=== PATIENT | female | born 1960 | race Caucasian/White ===

== ENCOUNTER 2020-01-09 10:24 | Emergency (ER) | payer MEDICAID, SELFPAY ==
[2020-01-09 11:16] VITALS: BP 125/76; PULSE 81; RESP 20; TEMP 36.8; O2SAT 96
--- NOTE | 2020-01-09 14:21 | ED.EAR ---
HPI - Ear Problem General Chief complaint: Ear Stated complaint: r ear pain Time Seen by Provider: 01/09/20 13:40 Source: patient Mode of arrival: ambulatory Limitations: no limitations History of Present Illness HPI Narrative: Patient presents with chief complaint of pain, swelling and drainage to her right ear that has worsened over the past 2 days. Patient states that she was supposed to have surgery on her right ear due to persistent infections but she moved from [place] to our area to take care of her mother so she did not have the procedure performed. Patient states that she generally responds well to clindamycin but she also needs medication for pain. Patient is also requesting referral to general surgeon due to umbilical hernia which she has noticed more irritation since she has been having to be in the lifting care for her mother. Patient states that the hernia does reduce but she does note soreness to the area. Patient states that she also needs referral to a circulating process inspector. Patient denies fever, chills, diarrhea, vomiting, chest pain, shortness of breath or lethargy. Patient reports allergies to sulfa, penicillin any Toradol. Related Data Allergies Allergy/AdvReac Type Severity Reaction Status Date / Time ketorolac Allergy Unknown Rash Verified 01/09/20 14:12 meperidine Allergy Unknown Rash Verified 01/09/20 14:12 Penicillins Allergy Unknown welts, Unverified 01/09/20 11:23 closes throat Sulfa (Sulfonamide Allergy Unknown rash,swells Unverified 01/09/20 11:23 Antibiotics) throat Review of Systems Review of Systems: Narrative: CONSTITUTIONAL: Denies fever, chills, or sweats. EYES: Denies visual changes, redness, or discharge. ENT: Reports otalgia and ear drainage denies rhinorrhea, congestion, sore throat CARDIOVASCULAR: Denies chest pain, palpitations, or edema. RESPIRATORY: Denies cough or dyspnea. GASTROINTESTINAL: Reports umbilical hernia denies abdominal pain, nausea, vomiting, or diarrhea. GENITOURINARY: Denies dysuria or hematuria. SKIN: Denies rash or itching. MUSCULOSKELETAL: Denies back pain, joint pain, or myalgia. NEUROLOGIC: Denies headache, numbness, dizziness, or weakness. PSYCHIATRIC: Denies anxiety or depression. Exam Narrative: Exam Narrative: GENERAL: Well-appearing, well-nourished, and appears uncomfortable HEAD: Normocephalic, atraumatic. EYES: PERRLA and EOMI. ENT: Ear canal swollen on left side unable to see tm due to swelling and discharge. RT TM and ear canal clear. NECK: Supple. No adenopathy or masses. CHEST: Clear to auscultation. No respiratory distress. No tachypnea ABDOMEN: Soft, reducible umbilical hernia to right side. tender with deep manipulation. normal active bowel sounds. EXTREMITIES: Normal range of motion. No edema. SKIN: Warm, dry, no rash. NEURO: No focal deficits. Alert and oriented x3. PSYCH: Normal mood and affect. Course Vital Signs Vital signs: Vital Signs Temperature 98.3 F 01/09/20 11:16 Pulse Rate 81 01/09/20 11:16 Respiratory Rate 20 01/09/20 11:16 Blood Pressure 125/76 01/09/20 11:16 Pulse Oximetry 96 01/09/20 11:16 Temperature 98.3 F 01/09/20 11:16 Pulse Rate 81 01/09/20 11:16 Respiratory Rate 20 01/09/20 11:16 Blood Pressure 125/76 01/09/20 11:16 Pulse Oximetry 96 01/09/20 11:16 Medical Decision Making MDM Narrative Medical decision making narrative: Patient states that she was supposed to have surgery on is taking due to recurrent otitis externa and otitis media. Patient states that she responds well to clindamycin. Patient states that she does not tolerate eardrops will any only clindamycin by mouth. Patient has been instructed of the importance of following up with ear nose throat specialist for further investigation and management of her symptoms. Patient umbilical hernia is reducible also patient has been instructed to follow-up with general surgery for further investigation and recommendations. Alex
[2020-01-09] MEDS: HYDROcodone/acetaminophen (*CRX) 5-325 MG TABLET 1 TAB PO (14:22)
[2020-01-09 14:40] VITALS: BP 121/73; PULSE 79; RESP 20; O2SAT 97
== END 2020-01-09 14:41 | disposition home or self-care (01) ==
PROVIDERS: Emergency Provider Emergency Medicine; Referring Provider Internal Medicine
DX: H60.501 Unspecified acute noninfective otitis externa, right ear (principal); H66.91 Otitis media, unspecified, right ear
CPT/HCPCS: 99283; A9270

== ENCOUNTER 2022-11-26 19:05 | Emergency (ER) | payer OTHER, SELFPAY ==
--- NOTE | 2022-11-26 19:07 | ED.SOB ---
HPI - SOB/Dyspnea General Chief Complaint: Shortness of Breath/Dyspnea Stated Complaint: Shortness Of Breath/Swelling Hand/Feet Time Seen by Provider: 11/26/22 19:05 Source: patient Mode of arrival: ambulatory Limitations: no limitations History of Present Illness HPI Narrative: Jolanta is a 62-year-old female patient presenting to clinic today with complaints of shortness of breath that has gotten worse over the last day and swelling of her hands and feet that have occurred over the last 3 days. She has a history of hypercholesterolemia, hypertension, congestive heart failure, COPD, and heart attack. Related Data Home Medications Medication Instructions Recorded Confirmed atorvastatin 40 mg tablet 40 mg PO DAILY 09/24/22 cyclobenzaprine 10 mg tablet 10 mg PO TID 09/24/22 diltiazem HCl 120 mg 120 mg PO Q12H 09/24/22 capsule,extended release 12 hr furosemide 40 mg tablet (Lasix) 40 mg PO QAM 09/24/22 magnesium oxide 400 mg (241.3 mg 400 mg PO DAILY 09/24/22 magnesium) tablet pantoprazole 40 mg tablet,delayed 40 mg PO QHS 09/24/22 release (Protonix) paroxetine HCl 40 mg tablet 40 mg PO DAILY 09/24/22 clonazepam 0.5 mg tablet 0.5 mg PO DAILY 10/14/22 Allergies Allergy/AdvReac Type Severity Reaction Status Date / Time ketorolac Allergy Unknown Rash Verified 11/17/22 07:15 meperidine Allergy Unknown Rash Verified 11/17/22 07:15 Penicillins Allergy Unknown welts, Unverified 11/17/22 07:15 closes throat Sulfa (Sulfonamide Allergy Unknown rash,swells Unverified 11/17/22 07:15 Antibiotics) throat citalopram [From Celexa] Allergy Confusion Verified 11/17/22 07:15 erythromycin base Allergy Heartburn Verified 11/17/22 07:15 latex Allergy Rash Verified 11/17/22 07:15 morphine Allergy Nausea Verified 11/17/22 07:15 pregabalin [From Lyrica] Allergy Abdominal Verified 11/17/22 07:15 Pain gabapentin AdvReac Difficulty Verified 11/17/22 07:15 Swallowing Review of Systems Review of Systems: Pertinent positives per HPI. Patient denies any fever, chills, rash, headache, visual changes, dizziness, cough, runny nose, sore throat, chest pain, palpitations, nausea, vomiting, diarrhea, constipation, abdominal pain, or any urinary issues. [facility] Past Medical History Medical History Allergies Anxiety Arthritis Asthma CHF (congestive heart failure) COPD (chronic obstructive pulmonary disease) GERD (gastroesophageal reflux disease) Head ache Heart attack HTN (hypertension) IBS (irritable bowel syndrome) Migraine Osteoporosis Seizure Ulcer Family History Family History Father Alcohol abuse Cancer Mother Alcohol abuse Heart disease Sibling Alcohol abuse Hypertension Depression Anxiety Grandparent Alcohol abuse Cerebrovascular accident Social History Social History Smoking status: Current every day smoker Lack of Transportation: No Lack of Food: Sometimes True Current Housing: I Have Housing Concerned About Future Housing: No Difficulty Paying Gas/Electric Bills: No Difficulty Paying for Meds: No Currently Unemployed: YES Education: High School Diploma/GED Difficulty w/ Childcare or Family Care: YES Comments At the time of my signature, I reviewed and agree with the nursing past medical, surgical, social, and family history. There is no relevant family history pertinent to the patient complaint. Exam Narrative: General: Well-developed, obese, in no apparent distress Head: Normocephalic, atraumatic. Cardio: Regular rate and rhythm, s1 and s2 normal, no murmur appreciated. Resp: Lung sounds diminished, no rhonchi, rales, wheezing or rubs. Extremities: No deformity, 2+ pitting edema in the lower extremities and 1+ in the upper extremities, no cyanosis, capillary refil
[2022-11-26 19:11] VITALS: BP 142/88; PULSE 83; RESP 20; TEMP 36.2; O2SAT 97
--- NOTE | 2022-11-26 19:18 | ECG_ITS ---
Measurements Intervals [place] Rate: 86 P: 58 AR: 163 QRS: -43 QRSD: 83 T: 48 QT: 407 QTc: 487 Interpretive Statements SINUS RHYTHM LEFT AXIS DEVIATION [QRS AXIS < -30] INCOMPLETE RIGHT BUNDLE BRANCH BLOCK NO PREVIOUS ECG AVAILABLE FOR COMPARISON Electronically Signed On 11-27-2022 14:18:20 CDT by Kyaw Lewis M.D.
== END 2022-11-26 19:46 | disposition short-term general hospital (02) ==
PROVIDERS: Emergency Provider Nurse Practitioner Family; PCP Family Medicine
DX: R60.9 Edema, unspecified (principal); R06.02 Shortness of breath; I11.0 Hypertensive heart disease with heart failure; I50.9 Heart failure, unspecified; J44.9 Chronic obstructive pulmonary disease, unspecified; I25.2 Old myocardial infarction; F17.200 Nicotine dependence, unspecified, uncomplicated
CPT/HCPCS: 93005; 99213; G0463

== ENCOUNTER 2022-11-26 20:29 | Emergency (ER) | payer OTHER, SELFPAY ==
--- NOTE | ~2022-11-26 | XR_ITS ---
EXAMINATION: XR chest 2V DATE: 11/26/2022 21:04 INDICATION: Shortness of breath. TECHNIQUE: Frontal and lateral views of the chest were obtained. COMPARISON: CT abdomen and pelvis 08/09/2005 FINDINGS: There is mild atelectasis in the lower lung zones. No pleural effusion or pneumothorax. Car diomegaly is noted. IMPRESSION: 1. Mild atelectasis in the lower lung zones. 2. Cardiomegaly. Reviewed, dictated and finalized at location E.
[2022-11-26 20:32] VITALS: BP 158/96; PULSE 85; RESP 20; TEMP 36.7; O2SAT 97
--- NOTE | 2022-11-26 20:38 | ECG_ITS ---
Measurements Intervals [place] Rate: 71 P: [place]: 0 QRS: -48 QRSD: 104 T: 75 QT: 416 QTc: 453 Interpretive Statements SINUS RHYTHM WIHT PREMATURE ATRIAL COMPLEXES MARKED LEFT AXIS DEVIATION [QRS AXIS < -30] COMPARED TO ECG 11/26/2022 20:40:40 PACS NOW PRESENT Electronically Signed On 11-27-2022 14:22:43 CDT by Kyaw Lewis M.D.
[2022-11-26 21:55] LABS: Basophils Absolute Auto 0.1 K/mm3 (0.0-0.1); Basophils Percent Auto 0.4 % (0.2-1.2); Eosinophils Absolute Auto 0.3 K/mm3 (0-0.3); Eosinophils Percent Auto 2.3 % (0-4.4); Hematocrit 39.9 % (37.0-47.0); Immature Granulocyte Absolute 0.05 K/mm3 (0.00-0.031); Immature Granulocyte Percent A 0.4 % (0-0.5); Lymphocytes Absolute Auto 4.12 K/mm3 (0.9-3.2); Lymphocytes Percent Auto 35.4 % (18.3-44.2); Mean Corpuscular HGB Conc 32.6 g/dl (32-36); Mean Corpuscular Hemoglobin 31.1 pg (26-34); Mean Corpuscular Volume 95.5 fl (80-100); Mean Platelet Volume 9.5 fl (7.4-10.4); Monocytes Absolute Auto 0.6 K/mm3 (0.1-0.6); Monocytes Percent Auto 4.8 % (2.6-8.5); Neutrophils Absolute Auto 6.6 K/mm3 (1.3-6.7); Neutrophils Percent Auto 56.7 % (45.5-73.1); Platelet Count Result 328 k/mm3 (150-375); Red Blood Count 4.18 M/mm3 (4.2-5.4); Red Cell Distribution Width 13.9 % (11.5-14.5); White Blood Count 11.6 K/mm3 (4.5-10.0)
[2022-11-26 22:05] LABS: Partial Thromboplastin Time 23.8 SECONDS (22.3-36.8)
[2022-11-26 22:06] LABS: Alanine Aminotransferase 28 U/L (6-35); Albumin Level 4.1 g/dL (3.5-5.1); Alkaline Phosphatase 112 U/L (38-126); Anion Gap 7 mmol/L (8-16); Aspartate Amino Transferase 23 U/L (14-36); Bilirubin,Total 0.3 mg/dL (0.2-1.3); Blood Urea Nitrogen 19 mg/dL (7-17); Calcium 9.4 mg/dL (8.4-10.2); Carbon Dioxide 25 mmol/L (22-30); Chloride 107 mmol/L (98-107); Estimated CRCL calculation 100 ml/min; Estimated Glomerular Filt Rate > 60; Glucose 145 mg/dL (65-110); Potassium 3.8 mmol/L (3.4-5.0); Prothrombin Time 13.3 Seconds (11.1-14.7); Sodium 139 mmol/L (137-145)
[2022-11-26 22:17] LABS: NT Pro B Type Natriuretic Pept 183 pg/mL (19.9-100); Troponin I < 0.012 ng/mL (0.000-0.034)
[2022-11-26 22:42] VITALS: O2SAT 97
[2022-11-26 22:44] VITALS: PULSE 81; RESP 18; O2SAT 96
--- NOTE | 2022-11-26 23:20 | PC.NURSE ---
pt report and care to WENDY Taylor. all questions answered.
--- NOTE | 2022-11-26 23:39 | PC.NURSE ---
This RN took patient report from WENDY Gonzales. This Rn assumed care of patient.
== END 2022-11-27 00:17 | disposition left against medical advice (07) ==
PROVIDERS: Emergency Provider Emergency Medicine; PCP Family Medicine
DX: R06.02 Shortness of breath (principal)
CPT/HCPCS: 36415; 71046; 80053; 83880; 84484; 85025; 85610; 85730; 93005; 99199

== ENCOUNTER 2022-12-05 10:56 | Emergency (ER) | payer OTHER, SELFPAY ==
[2022-12-05 11:05] VITALS: BP 126/70; PULSE 78; RESP 20; TEMP 36.7; O2SAT 97
[2022-12-05 11:18] VITALS: BP 126/70; PULSE 78; RESP 20; TEMP 36.7; O2SAT 97
[2022-12-05 11:25] VITALS: PULSE 88; RESP 20; O2SAT 98
--- NOTE | 2022-12-05 11:33 | ED.URI ---
HPI - URI/Sore Throat General Chief Complaint: Upper Respiratory Infection Stated Complaint: Congestion/Cough Time Seen by Provider: 12/05/22 11:33 Source: patient Mode of arrival: ambulatory Limitations: no limitations History of Present Illness HPI Narrative: 62 yo F presents with c/o congestion, cough, fatigue for 6 days. States she was told earlier this week she just had a URI . her mother is in hospital with covid so she took home test yesterday and was positive. Pt would like prescription for paxlovid. has hx of COPD. Has been using inhalers as prescribed. Reports SOB with exertion. no resp distress noted. All systems reviewed and negative except as noted above. Related Data Home Medications Medication Instructions Recorded Confirmed atorvastatin 40 mg tablet 40 mg PO DAILY 09/24/22 12/05/22 cyclobenzaprine 10 mg tablet 10 mg PO TID 09/24/22 12/05/22 diltiazem HCl 120 mg 120 mg PO Q12H 09/24/22 12/05/22 capsule,extended release 12 hr furosemide 40 mg tablet (Lasix) 40 mg PO QAM 09/24/22 12/05/22 magnesium oxide 400 mg (241.3 mg 400 mg PO DAILY 09/24/22 12/05/22 magnesium) tablet pantoprazole 40 mg tablet,delayed 40 mg PO QHS 09/24/22 12/05/22 release (Protonix) paroxetine HCl 40 mg tablet 40 mg PO DAILY 09/24/22 12/05/22 clonazepam 0.5 mg tablet 0.5 mg PO DAILY 10/14/22 12/05/22 Allergies Allergy/AdvReac Type Severity Reaction Status Date / Time ketorolac Allergy Unknown Rash Verified 12/05/22 11:18 meperidine Allergy Unknown Rash Verified 12/05/22 11:18 Penicillins Allergy Unknown welts, Unverified 12/05/22 11:18 closes throat Sulfa (Sulfonamide Allergy Unknown rash,swells Unverified 12/05/22 11:18 Antibiotics) throat citalopram [From Celexa] Allergy Confusion Verified 12/05/22 11:18 erythromycin base Allergy Heartburn Verified 12/05/22 11:18 latex Allergy Rash Verified 12/05/22 11:18 morphine Allergy Nausea Verified 12/05/22 11:18 pregabalin [From Lyrica] Allergy Abdominal Verified 12/05/22 11:18 Pain gabapentin AdvReac Difficulty Verified 12/05/22 11:18 Swallowing Review of Systems Review of Systems: CONSTITUTIONAL: Denies fever, chills, or sweats. EYES: Denies visual changes, redness, or discharge. ENT: Denies rhinorrhea, congestion, sore throat, or otalgia. CARDIOVASCULAR: Denies chest pain, palpitations, or edema. RESPIRATORY: Reports cough and dyspnea with exertion. GASTROINTESTINAL: Denies abdominal pain, nausea, vomiting, or diarrhea. GENITOURINARY: Denies dysuria or hematuria. SKIN: Denies rash or itching. MUSCULOSKELETAL: Denies back pain, joint pain, or myalgia. NEUROLOGIC: Denies headache, numbness, or weakness. PSYCHIATRIC: Denies anxiety or depression. All other systems reviewed are negative, except as documented in HPI. [facility] Past Medical History Medical History Allergies Anxiety Arthritis Asthma CHF (congestive heart failure) COPD (chronic obstructive pulmonary disease) GERD (gastroesophageal reflux disease) Head ache Heart attack HTN (hypertension) IBS (irritable bowel syndrome) Migraine Osteoporosis Seizure Ulcer Family History Family History Father Alcohol abuse Cancer Mother Alcohol abuse Heart disease Sibling Alcohol abuse Hypertension Depression Anxiety Grandparent Alcohol abuse Cerebrovascular accident Social History Social History Smoking status: Current every day smoker Lack of Transportation: No Lack of Food: Sometimes True Current Housing: I Have Housing Concerned About Future Housing: No Difficulty Paying Gas/Electric Bills: No Difficulty Paying for Meds: No Currently Unemployed: YES Education: High School Diploma/GED Difficulty w/ Childcare or Family Care: YES Comments At time of signature, agree with joy
== END 2022-12-05 11:45 | disposition home or self-care (01) ==
PROVIDERS: Emergency Provider Nurse Practitioner Family; PCP Family Medicine
DX: U07.1 COVID-19 (principal); J44.9 Chronic obstructive pulmonary disease, unspecified; M19.90 Unspecified osteoarthritis, unspecified site; I11.0 Hypertensive heart disease with heart failure; I50.9 Heart failure, unspecified; M81.0 Age-related osteoporosis without current pathological fracture; I25.2 Old myocardial infarction; F41.9 Anxiety disorder, unspecified
CPT/HCPCS: 99213; G0463

== ENCOUNTER 2022-12-30 10:27 | Emergency (ER) | payer OTHER, SELFPAY ==
--- NOTE | ~2022-12-30 | XR_ITS ---
EXAMINATION: XR knee LT min 4V DATE: 12/30/2022 11:14 INDICATION: Left knee pain TECHNIQUE: Four views of the left knee were obtained. COMPARISON: None. FINDINGS: Alignment is normal. No fracture or osteochondral lesion. There is mild tricompartmental os teoarthritis characterized by tiny marginal osteophytes. No joint effusion/synovitis. Soft tissues a re unremarkable. IMPRESSION: 1. No acute osseous abnormality. Reviewed, dictated and finalized at location B. ING TECHNICIAN
--- NOTE | ~2022-12-30 | XR_ITS ---
EXAMINATION: XR knee RT min 4V DATE: 12/30/2022 11:14 INDICATION: Right knee pain TECHNIQUE: Five views of the right knee were obtained. COMPARISON: None. FINDINGS: Alignment is normal. No fracture or osteochondral lesion. There is mild tricompartmental os teoarthritis characterized by tiny marginal osteophytes. No joint effusion/synovitis. Soft tissues a re unremarkable. IMPRESSION: 1. No acute osseous abnormality. Reviewed, dictated and finalized at location B. RONMENTAL SERVICES ATTENDANT
[2022-12-30 10:34] VITALS: BP 135/89; PULSE 72; RESP 14; TEMP 36.4; O2SAT 96
--- NOTE | 2022-12-30 11:06 | ED.LOWEXIN ---
HPI - Extremity Injury (Lower) General Chief Complaint: Extremity Injury, Lower Stated Complaint: Left and Right Leg Pain Time Seen by Provider: 12/30/22 11:00 Source: patient, RN notes reviewed and old records reviewed Mode of arrival: ambulatory Limitations: no limitations History of Present Illness HPI Narrative: 62 year old female who presents to [facility] care with complaints of fall 2 weeks ago in the bathroom hitting her knees on metal shower bar and then she states she fell on her way back to bed on to her knees directly onto carpet floor. Patient reports pain to anterior left knee below knee cap and on the right anterior knee region across patella for the past 2 weeks. Patient reports that she has been taking Percocet for her pain which she has for chronic back pain. Patient reports that she has appointment with Dr Ortez on the of this month. complaint: knee injury and fall Onset (ago): week(s) (2) Type of Injury: blunt Place: home Severity scale (1-10): 10 Treatments prior to arrival: other (Percocet) Related Data Home Medications Medication Instructions Recorded Confirmed atorvastatin 40 mg tablet 40 mg PO DAILY 09/24/22 12/31/22 cyclobenzaprine 10 mg tablet 10 mg PO TID 09/24/22 12/31/22 diltiazem HCl 120 mg 120 mg PO Q12H 09/24/22 12/31/22 capsule,extended release 12 hr furosemide 40 mg tablet (Lasix) 40 mg PO QAM 09/24/22 12/31/22 magnesium oxide 400 mg (241.3 mg 400 mg PO DAILY 09/24/22 12/31/22 magnesium) tablet pantoprazole 40 mg tablet,delayed 40 mg PO QHS 09/24/22 12/31/22 release (Protonix) paroxetine HCl 40 mg tablet 40 mg PO DAILY 09/24/22 12/31/22 clonazepam 0.5 mg tablet 0.5 mg PO DAILY 10/14/22 12/31/22 propranolol 80 mg capsule,24 80 mg PO DAILY 12/30/22 12/31/22 hr,extended release ropinirole 1 mg tablet 1 mg PO DAILY 12/30/22 12/31/22 Allergies Allergy/AdvReac Type Severity Reaction Status Date / Time ketorolac Allergy Unknown Rash Verified 12/31/22 12:24 meperidine Allergy Unknown Rash Verified 12/31/22 12:24 Penicillins Allergy Unknown welts, Verified 12/31/22 12:24 closes throat Sulfa (Sulfonamide Allergy Unknown rash,swells Verified 12/31/22 12:24 Antibiotics) throat citalopram [From Celexa] Allergy Confusion Verified 12/31/22 12:24 erythromycin base Allergy Heartburn Verified 12/31/22 12:24 latex Allergy Rash Verified 12/31/22 12:24 morphine Allergy Nausea Verified 12/31/22 12:24 pregabalin [From Lyrica] Allergy Abdominal Verified 12/31/22 12:24 Pain gabapentin AdvReac Difficulty Verified 12/31/22 12:24 Swallowing Review of Systems Review of Systems: CONSTITUTIONAL: Denies fever, chills, or sweats. CARDIOVASCULAR: Denies chest pain, palpitations, or edema. RESPIRATORY: Denies cough or dyspnea. SKIN: Denies rash or itching. Denies laceration or abrasions MUSCULOSKELETAL: Reports pain to bilateral anterior knee areas from fall 2 weeks ago. NEUROLOGIC: Denies numbness, or weakness. All systems reviewed & are unremarkable except as noted in HPI and below PMFSH Past Medical History Medical History Allergies Anxiety Arthritis Asthma CHF (congestive heart failure) COPD (chronic obstructive pulmonary disease) GERD (gastroesophageal reflux disease) Head ache Heart attack HTN (hypertension) IBS (irritable bowel syndrome) Migraine Osteoporosis Seizure Ulcer Surgical History Surgical History H/O: hysterectomy Hx of appendectomy Hx of cholecystectomy Family History Family History Father Alcohol abuse Cancer Mother Alcohol abuse Heart disease Sibling Alcohol abuse Hypertension Depression Anxiety Grandparent Alcohol abuse Cerebrovascular accident Social History Social History Smoking status: Cur
== END 2022-12-30 11:42 | disposition home or self-care (01) ==
PROVIDERS: Emergency Provider Registered Nurse; PCP Family Medicine
DX: M17.0 Bilateral primary osteoarthritis of knee (principal); F17.200 Nicotine dependence, unspecified, uncomplicated; I11.0 Hypertensive heart disease with heart failure; I50.9 Heart failure, unspecified; J44.9 Chronic obstructive pulmonary disease, unspecified; K21.9 Gastro-esophageal reflux disease without esophagitis; M81.0 Age-related osteoporosis without current pathological fracture; F41.9 Anxiety disorder, unspecified
CPT/HCPCS: 73564; 99214; G0463

== ENCOUNTER 2022-12-31 12:10 | Emergency (ER) | payer OTHER, SELFPAY ==
[2022-12-31 12:16] VITALS: BP 117/71; PULSE 73; RESP 20; TEMP 36.4; O2SAT 96
--- NOTE | 2022-12-31 12:17 | ED.BACK ---
HPI - Back Pain/Injury General Chief Complaint: Back Pain/Injury Stated Complaint: back out Time Seen by Provider: 12/31/22 12:17 Source: patient Mode of arrival: ambulatory Limitations: no limitations History of Present Illness HPI Narrative: Jolanta is a 62-year-old female patient presenting to the clinic today with complaints of her back being out. 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 States the pain is sharp and is starting around the thoracic back down into the lumbar back with numbness and tingling into bilateral lower extremities. She reports that the pain was so bad that she felt as though she was going to pass out. Currently rates her pain 10/10. Denies any loss of bowel or bladder. Denies any saddle anesthesia. [facility] but needed assistance getting out of her vehicle. EMS was contacted initially to transfer patient to the ER but patient decided she wanted to be seen in the [facility] when she was assisted out of her vehicle into the wheelchair by EMS. Related Data Home Medications Medication Instructions Recorded Confirmed atorvastatin 40 mg tablet 40 mg PO DAILY 09/24/22 12/31/22 cyclobenzaprine 10 mg tablet 10 mg PO TID 09/24/22 12/31/22 diltiazem HCl 120 mg 120 mg PO Q12H 09/24/22 12/31/22 capsule,extended release 12 hr furosemide 40 mg tablet (Lasix) 40 mg PO QAM 09/24/22 12/31/22 magnesium oxide 400 mg (241.3 mg 400 mg PO DAILY 09/24/22 12/31/22 magnesium) tablet pantoprazole 40 mg tablet,delayed 40 mg PO QHS 09/24/22 12/31/22 release (Protonix) paroxetine HCl 40 mg tablet 40 mg PO DAILY 09/24/22 12/31/22 clonazepam 0.5 mg tablet 0.5 mg PO DAILY 10/14/22 12/31/22 propranolol 80 mg capsule,24 80 mg PO DAILY 12/30/22 12/31/22 hr,extended release ropinirole 1 mg tablet 1 mg PO DAILY 12/30/22 12/31/22 Allergies Allergy/AdvReac Type Severity Reaction Status Date / Time ketorolac Allergy Unknown Rash Verified 12/31/22 12:24 meperidine Allergy Unknown Rash Verified 12/31/22 12:24 Penicillins Allergy Unknown welts, Verified 12/31/22 12:24 closes throat Sulfa (Sulfonamide Allergy Unknown rash,swells Verified 12/31/22 12:24 Antibiotics) throat citalopram [From Celexa] Allergy Confusion Verified 12/31/22 12:24 erythromycin base Allergy Heartburn Verified 12/31/22 12:24 latex Allergy Rash Verified 12/31/22 12:24 morphine Allergy Nausea Verified 12/31/22 12:24 pregabalin [From Lyrica] Allergy Abdominal Verified 12/31/22 12:24 Pain gabapentin AdvReac Difficulty Verified 12/31/22 12:24 Swallowing Review of Systems Review of Systems: Pertinent positives per HPI. Patient denies any fever, chills, rash, headache, visual changes, dizziness, cough, runny nose, sore throat, shortness of breath, chest pain, palpitations, nausea, vomiting, diarrhea, constipation, abdominal pain, or any urinary issues. PMFSH Past Medical History Medical History Allergies Anxiety Arthritis Asthma CHF (congestive heart failure) COPD (chronic obstructive pulmonary disease) GERD (gastroesophageal reflux disease) Head ache Heart attack HTN (hypertension) IBS (irritable bowel syndrome) Migraine Osteoporosis Seizure Ulcer Surgical History Surgical History H/O: hysterectomy Hx of appendectomy Hx of cholecystectomy Family History Family History Father Alcohol abuse Cancer Mother Alcohol abuse Heart disease Sibling Alcohol abuse Hypertension Depression Anxiety Grandparent Alcohol abuse Cerebrovascular accident Social History Social History Smoking status: Current every day s
== END 2022-12-31 12:41 | disposition short-term general hospital (02) ==
PROVIDERS: Emergency Provider Nurse Practitioner Family; PCP Family Medicine
DX: M54.6 Pain in thoracic spine (principal); M54.42 Lumbago with sciatica, left side; F17.200 Nicotine dependence, unspecified, uncomplicated; M19.90 Unspecified osteoarthritis, unspecified site; J44.9 Chronic obstructive pulmonary disease, unspecified; K21.9 Gastro-esophageal reflux disease without esophagitis; I11.0 Hypertensive heart disease with heart failure; I50.9 Heart failure, unspecified; M81.0 Age-related osteoporosis without current pathological fracture; I25.2 Old myocardial infarction; F41.9 Anxiety disorder, unspecified
CPT/HCPCS: 99215; G0463

== ENCOUNTER 2023-03-25 13:26 | Outpatient (CLI) | payer OTHER, SELFPAY ==
--- NOTE | ~2023-03-25 | DEXA_ITS ---
Bone Density Report Name: WESTON SHAH Age: 63 Sex: Female Ethnicity: White Date of : 1960 Indication: postmenopausal; screening for osteoporosis; height loss; inflammatory bowel disease; prior fracture; asthma or emphysema; hysterectomy; secondary osteoporosis; Referring Provider: MALIHA NORTH Study: Bone densitometry was performed. Exam Date: March 25, 2023 Accession number: [id number] Bone Density: Region BMD T-score Z-score Classification AP Spine(L1-L4) 0.721 -3.0 -1.3 Osteoporosis Femoral Neck (Left) 0.550 -2.7 -1.2 Osteoporosis Total Hip (Left) 0.815 -1.0 0.1 Normal Femoral Neck (Right) 0.540 -2.8 -1.3 Osteoporosis Total Hip (Right) 0.815 -1.0 0.1 Normal Total Hip Mean 0.815 -1.0 0.1 Normal World Health Organization criteria for BMD impression classify patients as: Normal (T-score at or above -1.0), Osteopenia (T-score between -1.0 and -2.5), or Osteoporosis (T-score at or below -2.5). 10-year Fracture Risk: FRAX not reported because: Some T-score for Spine Total or Hip Total or Femoral Neck at or below -2.5 Prior hip or vertebral fracture Clinical Information Provided by Patient: Have had a previous hip or vertebral fracture Has had a low trauma fracture Smokes Has secondary osteoporosis Has the following medical conditions: Asthma or Emphysema, Inflammatory bowel diseases, Hysterectomy Patient maximum height was 68 Menopause Age: 28 No regular weight bearing exercise Drinks caffeinated beverages Onset of menses at age 9 Number of children 2 Impression: The patient has established osteoporosis, based on the Total Spine T-score and the existence of a prior fracture. The patient has risk factors, including: smoking, previous fracture. Discussion: HIGH RISK OF FRACTURE. BONE DENSITY IS UNDESIRABLY LOW AT ONE OR MORE SKELETAL SITES, CONSISTENT WITH POSTMENOPAUSAL OSTEOPOROSIS. This patient's lowest T-score, in a patient who has previously fractured, meets the World Health Organization's (WHO) criteria for severe osteoporosis. In untreated patients, the risk of osteoporotic fracture increases approximately two-fold for each 1.0 SD decrease in T-score. Low bone density is not the only risk factor for fracture; also consider factors such as patient's age, frailty or poor health, risk of falling, risk of injury, previous osteoporotic fracture, family history of osteoporosis, cigarette smoking, low body weight, etc. Not everyone with low bone mineral density has osteoporosis; osteomalacia and other metabolic bone disorders should also be considered. Patients who have osteoporosis should be evaluated for specific diseases and conditions (secondary causes) that may cause or contribute to bone loss. The [place] [employer]ocrinologists (AACE) and National Osteoporosis Foundation (NOF) recommend pharmacologic intervention for all postmenopausal wome
== END 2023-03-25 13:27 | disposition home or self-care (01) ==
PROVIDERS: PCP Family Medicine; Visit Provider Family Medicine
DX: M81.0 Age-related osteoporosis without current pathological fracture (principal)
CPT/HCPCS: 77080

== ENCOUNTER 2023-04-21 01:47 | Day surgery (SDC) | payer OTHER, SELFPAY ==
[2023-04-07 13:31] VITALS: BMI 37.8
--- NOTE | 2023-04-19 11:49 | PC.NURSE ---
Patient called regarding upcoming procedure. Reviewed preop instructions, appointment times, and procedure prep.
[2023-04-21 07:10] VITALS: BP 145/92; PULSE 78; RESP 16; TEMP 36.3; O2SAT 98; BMI 37.4
[2023-04-21] MEDS: LACTATED RINGERS 1,000 ML 150 ML IV CONT (07:32)
--- NOTE | 2023-04-21 07:40 | WPDANESEPPF ---
Anes - Initial Pre Proc Eval Procedure: Operation Date: 04/21/23 08:30 Proposed Procedures p Screening Colonoscopy - Jesus Lebron MD Date/Time: 04/21/23 07:40 Surgeon: Jesus Lebron MD Pre Op Diagnosis: neoplasm screening Patient Data Age: 63 Gender: F Height: 1.65 m Weight: 102.1 kg Last Vital Signs Temp 36.3 C L 04/21/23 07:10 Pulse 78 04/21/23 07:10 Resp 16 04/21/23 07:10 BP 145/92 H 04/21/23 07:10 Pulse Ox 98 04/21/23 07:10 O2 Del Method Room Air 04/21/23 07:10 Allergies Allergy/AdvReac Type Severity Reaction Status Date / Time ketorolac Allergy Unknown Rash Verified 04/21/23 07:22 meperidine Allergy Unknown Rash Verified 04/21/23 07:22 Penicillins Allergy Unknown welts, Verified 04/21/23 07:22 closes throat Sulfa (Sulfonamide Allergy Unknown rash,swells Verified 04/21/23 07:22 Antibiotics) throat citalopram [From Celexa] Allergy Confusion Verified 04/21/23 07:22 erythromycin base Allergy Heartburn Verified 04/21/23 07:22 latex Allergy Rash Verified 04/21/23 07:22 morphine Allergy Nausea Verified 04/21/23 07:22 pregabalin [From Lyrica] Allergy Abdominal Verified 04/21/23 07:22 Pain gabapentin AdvReac Difficulty Verified 04/21/23 07:22 Swallowing metformin AdvReac Fatigued Uncoded 04/21/23 07:22 Home Medications Medication Instructions Recorded Confirmed Type atorvastatin 40 mg tablet 40 mg PO DAILY 09/24/22 04/21/23 History furosemide 40 mg tablet (Lasix) 40 mg PO QAM 09/24/22 04/21/23 History pantoprazole 40 mg tablet,delayed 40 mg PO QHS 09/24/22 04/21/23 History release (Protonix) albuterol sulfate 2.5 mg/3 mL 2.5 mg (3 mL) inhalation Q4-6H PRN 12/03/22 04/21/23 Rx (0.083 %) solution for nebulization shortness of breath or wheezing #180 mL albuterol sulfate 90 mcg/actuation 1 inh inhalation Q4H PRN shortness 12/03/22 04/21/23 Rx aerosol inhaler of breath or wheezing #8.5 grams aripiprazole 5 mg tablet (Abilify) 5 mg PO DAILY #90 tabs 03/15/23 04/21/23 Rx clonazepam 0.5 mg tablet 0.5 mg PO DAILY #30 tabs 03/15/23 04/21/23 Rx ibuprofen 800 mg tablet 800 mg PO Q6H #90 tabs 03/15/23 04/21/23 Rx hydrocodone 7.5 mg-acetaminophen 1 tablet PO Q8H PRN pain #90 tabs 03/25/23 04/21/23 Rx 325 mg tablet topiramate 25 mg tablet 25 mg PO DAILY #30 tabs 03/25/23 04/21/23 Rx alendronate 70 mg tablet 70 mg PO WEEKLY #14 tabs 03/31/23 04/21/23 Rx ropinirole 1 mg tablet 1 mg PO TID #90 tabs 04/12/23 04/21/23 Rx Patient hx anesthesia problems: none Family hx anesthesia problems: none Results Review: All pre-operative results and documents have been reviewed as part of the pre-operative evaluation. [facility] Past Medical History Medical History Allergies Anxiety Arthritis Asthma CHF (congestive heart failure) COPD (chronic obstructive pulmonary disease) GERD (gastroesophageal reflux disease) Head ache Heart attack HTN (hypertension) IBS (irritable bowel syndrome) Migraine Osteoporosis Seizure Ulcer Surgical History Surgical History H/O: hysterectomy Hx of appendectomy Hx of cholecystectomy Family History Family History Father Alcohol abuse Cancer Mother Alcohol abuse Heart disease Sibling Alcohol abuse Hypertension Depression Anxiety Grandparent Alcohol abuse Cerebrovascular accident Social History Social History Smoking packs per day: 0.5 Smoking cigarettes per day: 10.0 Years smoked: 50 Smoking pack-years: 25.00 Smoking status: Current every day smoker Tobacco type: cigarettes and e-cigarettes/vaping Second hand tobacco smoke exposure: Yes Additional smoking assessment comments: started smoking at 9 years old Substance use type: does not use Lack of
--- NOTE | 2023-04-21 08:42 | PM.HPGS ---
History of Present Illness History of Present Illness Consent: Risks, benefits, and alternatives have been discussed and questions answered. Patient agrees to proceed with procedure. Chief complaint: neoplasm screening Narrative: Jolanta Bruner is a 63 year old female with colon polyp about 8 years ago Review of Systems Constitutional: Constitutional: Denies headache(s) and Denies weakness Eyes: Eyes: Denies blurry vision ENT: Reports Normal hearing present, Denies headache(s) and Denies neck pain Cardiovascular: Cardiovascular: Denies chest pain and Denies dyspnea Respiratory: Respiratory: Denies dyspnea Gastrointestinal: Gastrointestinal: Reports no additional gastrointestinal complaints Genitourinary: Genitourinary: Denies dysuria Musculoskeletal: Musculoskeletal: Denies neck pain Integumentary/Breasts: Skin/Breast: Denies dry skin Neurologic: Reports Normal hearing present, Denies headache(s) and Denies weakness Psychiatric: Psychiatric: Denies anxiety Endocrine: Endocrine: Denies change in body appearance Hematologic/Lymphatic: Hematologic/Lymphatic: Denies easy bleeding Allergic/Immunologic: Allergic/Immunologic: Denies urticaria PMFSH Past Medical History Medical History Allergies Anxiety Arthritis Asthma CHF (congestive heart failure) COPD (chronic obstructive pulmonary disease) GERD (gastroesophageal reflux disease) Head ache Heart attack HTN (hypertension) IBS (irritable bowel syndrome) Migraine Osteoporosis Seizure Ulcer Surgical History Surgical History H/O: hysterectomy Hx of appendectomy Hx of cholecystectomy Family History Family History Father Alcohol abuse Cancer Mother Alcohol abuse Heart disease Sibling Alcohol abuse Hypertension Depression Anxiety Grandparent Alcohol abuse Cerebrovascular accident Social History Social History Smoking packs per day: 0.5 Smoking cigarettes per day: 10.0 Years smoked: 50 Smoking pack-years: 25.00 Smoking status: Current every day smoker Tobacco type: cigarettes and e-cigarettes/vaping Second hand tobacco smoke exposure: Yes Additional smoking assessment comments: started smoking at 9 years old Substance use type: does not use Lack of Transportation: No Lack of Food: Sometimes True Current Housing: I Have Housing Concerned About Future Housing: No Difficulty Paying Gas/Electric Bills: No Difficulty Paying for Meds: No Currently Unemployed: YES Education: High School Diploma/GED Difficulty w/ Childcare or Family Care: YES Living arrangements: with family Spiritual care concerns: No Meds Home Medications and Allergies Home Medications Medication Instructions Recorded Confirmed Type atorvastatin 40 mg tablet 40 mg PO DAILY 09/24/22 04/21/23 History furosemide 40 mg tablet (Lasix) 40 mg PO QAM 09/24/22 04/21/23 History pantoprazole 40 mg tablet,delayed 40 mg PO QHS 09/24/22 04/21/23 History release (Protonix) albuterol sulfate 2.5 mg/3 mL 2.5 mg (3 mL) inhalation Q4-6H PRN 12/03/22 04/21/23 Rx (0.083 %) solution for nebulization shortness of breath or wheezing #180 mL albuterol sulfate 90 mcg/actuation 1 inh inhalation Q4H PRN shortness 12/03/22 04/21/23 Rx aerosol inhaler of breath or wheezing #8.5 grams aripiprazole 5 mg tablet (Abilify) 5 mg PO DAILY #90 tabs 03/15/23 04/21/23 Rx clonazepam 0.5 mg tablet 0.5 mg PO DAILY #30 tabs 03/15/23 04/21/23 Rx ibuprofen 800 mg tablet 800 mg PO Q6H #90 tabs 03/15/23 04/21/23 Rx hydrocodone 7.5 mg-acetaminophen 1 tablet PO Q8H PRN pain #90 tabs 03/25/23 04/21/23 Rx 325 mg tablet topiramate 25 mg tablet 25 mg PO DAILY #30 tabs 03/25/23 04/21/23 Rx alendronate 70 mg tablet 70 mg PO WEEKLY #14 tabs 03/31/23
[2023-04-21 09:12] VITALS: BP 100/56; PULSE 78; RESP 24; O2SAT 93
[2023-04-21 09:22] VITALS: BP 136/95; PULSE 76; RESP 21; O2SAT 94
[2023-04-21 09:32] VITALS: BP 126/64; PULSE 77; RESP 21; O2SAT 96
== END 2023-04-21 09:39 | disposition home or self-care (01) ==
PROVIDERS: PCP Family Medicine; Visit Provider Internal Medicine Gastroenterology
PROC: 0DJD8ZZ Inspection of Lower Intestinal Tract, Via Natural or Artificial Opening Endoscopic (ICD-10-PCS; CPT 45378; principal; 2023-04-21 08:30)
DX: Z12.11 Encounter for screening for malignant neoplasm of colon (principal); D12.5 Benign neoplasm of sigmoid colon; K57.30 Diverticulosis of large intestine without perforation or abscess without bleeding; I11.0 Hypertensive heart disease with heart failure; I50.9 Heart failure, unspecified; I25.2 Old myocardial infarction; J44.9 Chronic obstructive pulmonary disease, unspecified; F41.9 Anxiety disorder, unspecified; M81.0 Age-related osteoporosis without current pathological fracture; G40.909 Epilepsy, unspecified, not intractable, without status epilepticus; F17.210 Nicotine dependence, cigarettes, uncomplicated; F17.290 Nicotine dependence, other tobacco product, uncomplicated; E66.9 Obesity, unspecified; Z68.37 Body mass index [BMI] 37.0-37.9, adult; Z79.51 Long term (current) use of inhaled steroids; Z79.891 Long term (current) use of opiate analgesic
CPT/HCPCS: 45385; 88305; J2704; J7120

== ENCOUNTER 2023-12-08 07:05 | Outpatient (CLI) | payer OTHER, SELFPAY ==
--- NOTE | ~2023-12-08 | CT_ITS ---
Clinical Indication: Pulmonary nodule CT Scan of the Chest with Contrast: Technique: Contiguous sections were acquired throughout the chest after intravenous administration of 75 cc of Omnipaque 350. Dose reduction technique was used on this scan by utilizing automated exposu re control and iterative reconstruction technique. The dose-length product (DLP) was 521.26 mGy-cm. Findings: There is no evidence of any significant mediastinal, hilar or axillary lymphadenopathy. There is no f illing defect in the pulmonary arterial tree to suggest pulmonary embolus. There is no evidence of ao rtic dissection or aneurysm. There is lipomatous hypertrophy of the interatrial septum. There is no evidence of pleural or pericardial effusion. The lungs are clear. No pulmonary nodules or infiltrates are noted. Images through the upper abdomen reveal no abnormalities. Severe T12 compression fracture deformity p resent. Impression: Clear lungs. Lipomatous hypertrophy of interatrial septum. Severe T12 compression fracture, somewhat age indeterminate. Reviewed, dictated and finalized at [facility]. Impression: Clear lungs. Lipomatous hypertrophy of interatrial septum. Severe T12 compression fracture, somewhat age indeterminate.
[2023-12-08 07:52] LABS: Estimated Glomerular Filt Rate > 60
== END 2023-12-08 07:06 | disposition home or self-care (01) ==
LOC: ANHIMG 07:06
PROVIDERS: PCP Family Medicine; Visit Provider Family Medicine
DX: R91.1 Solitary pulmonary nodule (principal); S22.080A Wedge compression fracture of T11-T12 vertebra, initial encounter for closed fracture; X58.XXXA Exposure to other specified factors, initial encounter
CPT/HCPCS: 71260; Q9967

== ENCOUNTER 2023-12-27 14:10 | Emergency (ER) | payer OTHER, SELFPAY ==
--- NOTE | ~2023-12-27 | XR_ITS ---
XR chest 2V Ordering provider: Ginny Mcgovern NP History: 63 years Female with . Cough . Comparison: November 26, 2022 FINDINGS: MEDIASTINUM: The cardiac silhouette is moderately enlarged. LUNGS: No infiltrates, effusions or pneumothorax. Slightly prominent bronchovascular markings in the left lower lobe which may indicate atelectatic changes. OTHER: No free air under the diaphragm. IMPRESSION: Prominent markings in the left lower lobe which may indicate atelectasis. Otherwise, No acute cardiopulmonary pathology. Reviewed, dictated and finalized at location [facility]. DIRECTOR IMPRESSION: Prominent markings in the left lower lobe which may indicate atelectasis. Other soto, No acute cardiopulmonary pathology.
[2023-12-27 14:14] VITALS: BP 155/105; PULSE 72; RESP 20; TEMP 36.7; O2SAT 97
[2023-12-27 14:21] VITALS: BP 155/105; PULSE 72; RESP 20; TEMP 36.7; O2SAT 97
--- NOTE | 2023-12-27 14:47 | ED_ITS ---
HPI - URI/Sore Throat General Chief Complaint: Upper Respiratory Infection Stated Complaint: cough/congestion Time Seen by Provider: 12/27/23 14:47 Source: patient and RN notes reviewed Mode of arrival: ambulatory Limitations: no limitations History of Present Illness HPI Narrative: 63-year-old female presents with concern for general malaise, fatigue, cough, productive cough. She reports history of COPD, she is a heavy smoker. She was diagnosed with COVID, she has been sick total 8 days. Patient reports chronic drainage from her left ear, she has tympanostomy tubes, she is seeing a specialist for the left ear. MD elicited complaint: cough Related Data Home Medications Medication Instructions Recorded Confirmed diltiazem HCl 120 mg mg PO 12/27/23 capsule,extended release 24 hr Allergies Allergy/AdvReac Type Severity Reaction Status Date / Time ketorolac Allergy Unknown Rash Verified 12/08/23 10:22 meperidine Allergy Unknown Rash Verified 12/08/23 10:22 Penicillins Allergy Unknown welts, Verified 12/08/23 10:22 closes throat Sulfa (Sulfonamide Allergy Unknown rash,swells Verified 12/08/23 10:22 Antibiotics) throat citalopram [From Celexa] Allergy Confusion Verified 12/08/23 10:22 erythromycin base Allergy Heartburn Verified 12/08/23 10:22 latex Allergy Rash Verified 12/08/23 10:22 morphine Allergy Nausea Verified 12/08/23 10:22 pregabalin [From Lyrica] Allergy Abdominal Verified 12/08/23 10:22 Pain gabapentin AdvReac Difficulty Verified 12/08/23 10:22 Swallowing metformin AdvReac Fatigued Uncoded 12/08/23 10:22 Review of Systems Review of Systems: CONSTITUTIONAL: Reports malaise, fatigue. Denies fever. EYES: Denies visual changes, redness, or discharge. ENT: Reports rhinorrhea, congestion CARDIOVASCULAR: Denies chest pain, palpitations, or edema. RESPIRATORY: Reports cough. Denies dyspnea. GASTROINTESTINAL: Denies abdominal pain, nausea, vomiting, diarrhea SKIN: Denies rash or itching. MUSCULOSKELETAL: Reports myalgia. NEUROLOGIC: Denies headache. All systems reviewed & are unremarkable except as noted in HPI and below PMFSH Past Medical History Medical History Allergies Anxiety Arthritis Asthma CHF (congestive heart failure) COPD (chronic obstructive pulmonary disease) GERD (gastroesophageal reflux disease) Head ache Heart attack HTN (hypertension) IBS (irritable bowel syndrome) Migraine Osteoporosis Seizure Ulcer Surgical History Surgical History H/O: hysterectomy Hx of appendectomy Hx of cholecystectomy Family History Family History Father Alcohol abuse Cancer Mother Alcohol abuse Heart disease Sibling Alcohol abuse Hypertension Depression Anxiety Grandparent Alcohol abuse Cerebrovascular accident Social History Social History (Updated 12/08/23 @ 10:19 by Ale Ribeiro [facility]) Smoking packs per day: 0.5 Smoking cigarettes per day: 10.0 Years smoked: 50 Smoking pack-years: 25.00 Smoking status: Current every day smoker Tobacco type: cigarettes and e-cigarettes/vaping Second hand tobacco smoke exposure: Yes Additional smoking assessment comments: started smoking at 9 years old Substance use type: does not use Do You Feel Safe in your Home?: Yes Lack of Transportation: No Lack of Food: Never True Current Housing: I Have Housing Concerned About Future Housing: No Difficulty Paying Gas/Electric Bills: YES Difficulty Paying for Meds: No Currently Unemployed: No Education: High School Diploma/GED Difficulty w/ Childcare or Family Care: YES Living arrangements: with family Spiritual care concerns: No Comments At time of signature, agree with nursing past medical, surgical, social and family history. There is no relevant family history pertinent to the presenting complaint Exam Narrative: GENERAL: Nontoxic-appearing, well-nourished, and in no acute distress. HEAD: Normocephalic EYES: PERRLA, conjunctivae clear ENT: Nares clear. Mucous membranes moist. TM pearly sauer with dull light reflex on the right, not visible on the left due to drainage; no tragal tenderness. Oropharynx not erythematous without lesions. Tonsils not enlarged and without exudate, no drooling, no hoarseness, no trismus, uvula midline. NECK: Supple. No lymphadenopathy CHEST: Scattered rhonchi and wheeze, breath sounds equal. No wheezing, rhonchi, rales, or stridor. No respiratory distress, speaks in full sentences. HEART: Regular rate and rhythm. No murmur heard. SKIN: Warm, dry, no rash. NEURO: Alert and oriented x3. PSYCH: Normal mood and affect Course Course Emergency Course: Patient is aware of diagnosis, understands and agrees to treatment plan. Anticipatory guidance given. Patient agrees to follow-up as directed and is aware of reasons to seek care at the emergency department. Portions of this record may have been created with voice recognition software Level of Care: Express Care Visit Vital Signs Vital signs: Vital Signs Temperature 98.1 F 12/27/23 14:14 Pulse Rate 72 12/27/23 14:14 Respiratory Rate 20 12/27/23 14:14 Blood Pressure 155/105 H 12/27/23 14:14 Pulse Oximetry 97 12/27/23 14:14 Oxygen Delivery Room Air 12/27/23 14:14 Temperature 98.1 F 12/27/23 14:21 Pulse Rate 72 12/27/23 14:21 Respiratory Rate 20 12/27/23 14:21 Blood Pressure 155/105 H 12/27/23 14:21 Pulse Oximetry 97 12/27/23 14:21 Oxygen Delivery Room Air 12/27/23 14:21 Reviewed. MDM - URI/Sore Throat MDM Narrative Medical decision making narrative: Differential diagnosis considered: Hall virus, strep pharyngitis, allergic rhinitis, upper respiratory tract infection, sinusitis, rhinosinusitis, nasopharyngitis. viral pharyngitis, otitis media, otitis externa, pneumonia, bronchitis, viral cough syndrome, viral syndrome, and influenza. Exam findings show no acute concerns or changes; patient is non-toxic appearing and is in no distress. Patient is appropriate for outpatient treatment and follow-up. Lab Data Attestation: I reviewed the patient's lab results. Imaging Data My impression: Images reviewed, interpreted by radiologist, agree, see report. Radiologist's impression: XR chest 2V Ordering provider: Ginny Mcgovern NP History: 63 years Female with . Cough . Comparison: November 26, 2022 FINDINGS: MEDIASTINUM: The cardiac silhouette is moderately enlarged. LUNGS: No infiltrates, effusions or pneumothorax. Slightly prominent bronchovascular markings in the left lower lobe which may indicate atelectatic changes. OTHER: No free air under the diaphragm. IMPRESSION: Prominent markings in the left lower lobe which may indicate atelectasis. Otherwise, No acute cardiopulmonary pathology. Critical Care Time Critical Care Time Critical Care Time: No Discharge Plan Discharge Clinical Impression: Lower respiratory infection Patient Disposition: Home, Self-Care Condition: Stable Instructions: Antibiotic Form, How to Use an Incentive Spirometer (ED) Additional Instructions: Your x-ray does not show pneumonia But I will treat you for lower respiratory tract infection due to her symptoms with steroid and antibiotic. You need to use the incentive spirometer as directed to help open up your lungs 1) Please follow-up with your primary care doctor in the next 1-2 days. 2) If you have any worsening of symptoms or any other urgent concerns please go to the ER. 3) Please take medications as prescribed and continue taking your home medications as usual. 4) Please read and follow information included in discharge instructions. Prescriptions: New methylprednisolone [Medrol (Amor)] 4 mg tablets,dose pack See Rx Instructions .ROUTE .COMPLEX Qty: 21 0RF Rx Instructions: orally per package directions doxycycline monohydrate 100 mg tablet 100 mg PO BID 7 Days Qty: 14 0RF No Action diltiazem HCl 120 mg capsule,extended release 24hr PO pantoprazole [Protonix] 40 mg tablet,delayed release (DR/EC) 40 mg PO QHS Qty: 30 3RF furosemide [Lasix] 40 mg tablet 40 mg PO .prn Qty: 90 0RF varenicline [Chantix] 1 mg tablet 1 mg PO BID Qty: 56 0RF albuterol sulfate 2.5 mg /3 mL (0.083 %) solution for nebulization 2.5 mg inhalation Q4-6H PRN (Reason: shortness of breath or wheezing) Qty: 1 80 0RF aripiprazole [Abilify] 5 mg tablet 5 mg PO DAILY Qty: 90 0RF cyclobenzaprine 10 mg tablet See Rx Instructions .ROUTE .COMPLEX Qty: 90 0RF Dose Instruction: TAKE ONE (1) TABLET ORALLY THREE TIMES a DAY NEEDED FOR MUSCLE SPASM Rx Instructions: TAKE ONE (1) TABLET ORALLY THREE TIMES a DAY NEEDED FOR MUSCLE SPASM clonazepam 0.5 mg tablet 0.5 mg PO DAILY Qty: 30 0RF hydrocodone-acetaminophen 7.5-325 mg tablet 1 tablet PO Q8H PRN (Reason: pain) Qty: 90 0RF ondansetron 4 mg tablet,disintegrating 4 mg PO Q8H PRN (Reason: nausea and vomiting) Qty: 30 0RF Follow-up/Referrals: Timo Mckeon MD [Primary Care Provider] - Stand Alone Forms: Work/School Release IP Time of Disposition: 15:18
== END 2023-12-27 15:22 | disposition home or self-care (01) ==
PROVIDERS: Emergency Provider Nurse Practitioner; PCP Family Medicine
DX: J22 Unspecified acute lower respiratory infection (principal); F17.210 Nicotine dependence, cigarettes, uncomplicated; F17.290 Nicotine dependence, other tobacco product, uncomplicated; I11.0 Hypertensive heart disease with heart failure; I50.9 Heart failure, unspecified; J44.9 Chronic obstructive pulmonary disease, unspecified; M19.90 Unspecified osteoarthritis, unspecified site; K21.9 Gastro-esophageal reflux disease without esophagitis; M81.0 Age-related osteoporosis without current pathological fracture; I25.2 Old myocardial infarction
CPT/HCPCS: 71046; 99213; G0463

== ENCOUNTER 2024-01-10 08:06 | Outpatient (CLI) | payer OTHER, SELFPAY ==
--- NOTE | ~2024-01-10 | NM_ITS ---
EXAMINATION: NM espinoza stress w perfusion DATE: 01/10/2024 10:51 INDICATION: Chest pain TECHNIQUE: Rest images were obtained following intravenous administration of 11.9 mCi Tc99m tetrofosm in (Myoview). The patient was infused intravenously with Lexiscan (Regadenoson). Then, 34.5 mCi Tc99m tetrofosmin (Myoview) was administered intravenously, and stress images were obtained. Data was olivia nstructed into short axis and horizontal and vertical long axis SPECT images. Gated SPECT images were also obtained. COMPARISON: None. FINDINGS: There is no definite reversible or fixed perfusion abnormality to suggest ischemia or infar ction. There is normal left ventricular chamber size, wall motion and ejection fraction. Left ventr icular ejection fraction measures >70%. IMPRESSION: 1. Normal myocardial perfusion at rest and during stress. 2. Left ventricular ejection fraction measuring >70%. Reviewed, dictated and finalized at location [facility]. [employer]OP[employer]ER
--- NOTE | 2024-01-10 08:16 | EST_ITS ---
Patient Info Name: Jolanta Bruner Age: 63 years : 1960 Gender: Female Ht: 65 in Wt: 223 lbs BSA: 2.20 m2 HR: 86 bpm BP: 125 / 66 mmHg Exam Date: 01/10/2024 9:21 AM Exam Location: Echo Lab Patient Status: Outpatient Admit Date: 01/10/2024 Staff Ordering Physician: Don Benson DO Attending Provider: Don Benson DO Exercise Technologist: Jennifer Medina RDCS Exercise Physician: Don Benson DO Exam Type: CA stress espinoza w NM Study Info A regadenoson stress test was performed. Summary 1. 1. Negative lexiscan stress test for ischemic ST changes by ECG criteria. 2. 2. Stable hemodynamics throughout the test. 3. 3. Nuclear scan to follow and will be reported separately. Please correlate with it. 4. 4. Patient informed of the above results. Protocol: Lexiscan Stress ECG Details Stage: REST Duration (min): 2 min : 31 sec HR (bpm): 89 SBP (mmHg): 125 DBP (mmHg): 66 Stage: REST Duration (min): 5 min : 37 sec HR (bpm): 103 SBP (mmHg): 125 DBP (mmHg): 66 Stage: STAGE 1 Duration (min): 0 min : 59 sec HR (bpm): 97 SBP (mmHg): 127 DBP (mmHg): 79 Stage: RECOVERY Duration (min): 1 min : 0 sec HR (bpm): 97 SBP (mmHg): 127 DBP (mmHg): 79 Stage: RECOVERY Duration (min): 2 min : 0 sec HR (bpm): 99 SBP (mmHg): 127 DBP (mmHg): 79 Stage: RECOVERY Duration (min): 3 min : 0 sec HR (bpm): 98 SBP (mmHg): 127 DBP (mmHg): 79 Stage: RECOVERY Duration (min): 4 min : 0 sec HR (bpm): 98 SBP (mmHg): 127 DBP (mmHg): 79 Stage: RECOVERY Duration (min): 4 min : 36 sec HR (bpm): 97 SBP (mmHg): 130 DBP (mmHg): 91 Rest HR: 103 bpm Peak HR: 114 bpm Rest Sys BP: 125 mmHg Peak Sys BP: 130 mmHg Max Pred HR: 156 bpm % Max Pred HR: 73 % Target HR: 133 bpm Max RPP: 14,820 bpm*mmHg Termination Reason: Completed protocol Cardiac Symptoms: Shortness of breath Total Time: 1 min : 0 sec Rest Peters BP: 66 mmHg Peak Peters BP: 91 mmHg Total Dose: 0.4 mg Resting ECG Sinus tachycardia, PAC's. Stress ECG No ST changes. Arrhythmias None. Report Signatures
== END 2024-01-10 08:07 | disposition home or self-care (01) ==
LOC: ANHCARD 08:07
PROVIDERS: PCP Family Medicine; Visit Provider Internal Medicine Cardiovascular Disease
DX: R07.9 Chest pain, unspecified (principal)
CPT/HCPCS: 78452; 93017; A9502; J2785

== ENCOUNTER 2024-04-15 14:10 | Emergency (ER) | payer MEDICARE, MEDICAID, SELFPAY ==
--- NOTE | ~2024-04-15 | XR_ITS ---
EXAMINATION: XR chest 2V DATE: 04/15/2024 15:44 INDICATION: Cough. TECHNIQUE: Frontal and lateral views of the chest were obtained. COMPARISON: Chest 2 views 12/27/2023, chest CT 12/08/2023 FINDINGS: There is mild atelectasis in the lower lung zones. No pleural effusion or pneumothorax. The heart size is normal. There is a chronic burst fracture of T12. IMPRESSION: 1. Mild atelectasis in the lower lung zones. Reviewed, dictated and finalized at location A. DEVELOPER
--- OUTSIDE RECORDS SUMMARY | 2024-04-15 14:14 | XMS_ITS | Encounter Summary ---
Author Organization [facility] Address [address] [place] [address] Phone Care Team Providers Care Block Cleaner Name Role Phone Prosper Browne MD Unavailable Sarath Gonsalez MD Unavailable [facility] Ally Pereyra MD Unavailable Jojo Skinner MD Unavailable Santiago Dasilva MD Unavailable [phone] Yusef Carias MD Unavailable [phone] Viraj Luna MD Unavailable Karen Rodriguez TITLE INSURANCE SALES REPRESENTATIVE, SUPERVISOR TUNNEL HEADING Unavailable + [phone] Dk Friedman TITLE INSURANCE SALES REPRESENTATIVE, CLINICAL PROJECT LEADER Unavailable [phone] David Patton MD Primary Care Provider Timo Mckeon MD Primary Care Provider [phone] Encounter Details Date Type Department Care Team (Late st Contact Info) Description 11/27/2023 Patient Outreach [facility] [address] [place] [address] Navigator, [place] Social History Tobacco Use Types Packs/Day Years Used Date Smoking Tobacco: Every Day Cigarettes 1 50 Smokeless Tobacco: Never Comments:Currently smoking l ess than 0.5 PPD. Started smoking at age 9 Smoked 3-4 packs/day at the most in the past Alcohol Use Standard Drinks/Week Comments Never 0 (1 standard drink = 0.6 oz pur e alcohol) [facility] Utilities Answer Date Recorded In the past 12 months has th e electric, gas, oil, or water company threatened to shut off services in your home? No 11/27/2023 Social Connection and Isolat ion Panel [NHANES] Answer Date Recorded In a typical week, how many times do you talk on the phone with family, friends, or neighbors? More than three times a week 11/27/2023 How often do you get togethe r with friends or relatives? More than three times a week 11/27/2023 How often do you attend chur ch or baptist services? Never 11/27/2023 Do you belong to any clubs o r organizations such as zoroastrian groups, unions, fraternal or athletic groups, or school groups? No 11/27/2023 How often do you attend meet ings of the clubs or organizations you belong to? Never 11/27/2023 Are you , , di vorced, , never , or living with a partner? 11/27/2023 AUDIT-C Answer Date Recorded Q1: How often do you have a drink containing alc ohol? Monthly or less 11/27/2023 Q2: How many drinks containi ng alcohol do you have on a typical day when you are drinking? 1 or 2 11/27/2023 Q3: How often do you have si x or more drinks on one occasion? Never 11/27/2023 Overall Financial Resource Strain (CARDIA) Answe r Date Recorded How hard is it for you to pa y for the very basics like food, housing, medical care, and heating? Very hard 11/27/2023 PHQ-2 Answer Date Recorded Total Score - Questions 1-9 1 05/23 [facility] of Occupat ional Health - Occupational Stress Questionnaire Answer Date Recorded Do you feel stress - tense, restless, nervous, or anxious, or unable to sleep at night because your mind is troubled all the time - these days? Very much 11/27/2023 Exercise Vital Sign Answer Date Recorde d On average, how many days pe r week do you engage in moderate to strenuous exercise (like a brisk walk)? 0 days 11/27/2023 On average, how many minutes do you engage in exercise at this level? 10 min 11/27/2023 Hunger Vital Sign Answer Date Recorded Within the past 12 months, y ou worried that your food would run out before you got the money to buy more. Never true 11/27/19 24 Within the past 12 months, t he food you bought just didn't last and you didn't have money to get more. Never true 11/27/2023 PRAPARE - Transportation Answer Date Re corded In the past 12 months, has l ack of transportation kept you from medical appointments or from getting medications? Yes 06/2023 In the past 12 months, has l ack of transportation kept you from meetings, work, or from getting things needed for daily living? Yes 11/27/2023 Housing Stability Vital Sign Answer Efraín e Recorded In the last 12 months, was t here a time when you were not able to pay the mortgage or rent on time? No 11/27/2023 In the past 12 months, how m any times have you moved where you were living? 2 11/27/2023 At any time in the past 12 m [place] [place], were you homeless or living in a intermediate (including now)? No 11/27/2023 Education Answer Date Recorded What is the highest level of school you have completed or the highest degree you have received? GED or equivalent 03/2022 Sexually Active Control Partners Comments Not Currently Comments No Sex and Gender Information Value Date Recorded Sex Assigned at Female 11/27/2022 1:29 AM CDT Legal Sex Female 11:20 PM CDT Gender Identity Female 11/27/2022 1:29 AM CDT Sexual Orientation Not on file documented as of this encounter Functional Status * Audit-C Score Answer Date of Assessment Author 1 11/27/2023 2:57 PM CDT Mulugeta Borrero * Within the last year, have you been humiliated or emotionally abused in other ways by your partner or ex-partner? Answer Date of Assessment Author No 11/27/2023 2:57 PM CDT Mulugeta Borrero * Within the last year, have you been afraid of your partner or ex-partner? Answer Date of Assessment Author No 11/27/2023 2:57 PM CDT Mulugeta Borrero * Within the last year, have you been raped or forced to have any kind of sexual activity by your partner or ex-partner? Answer Date of Assessment Author No 11/27/2023 2:57 PM CDT Mulugeta Borrero * Within the last year, have you been kicked, hit, slapped, or otherwise physically hurt by your partner or ex-partner? Answer Date of Assessment Author No 11/27/2023 2:57 PM CDT Mulugeta Borrero * Question Answer Date of Assessment Author Q1: How often do you have a drink containing alcohol? Monthly or less 11/27/2023 2:57 PM CDT Ta Borrero Q2: How many drinks containi ng alcohol do you have on a typical day when you are drinking? 1 or 2 11/27/2023 2:57 PM Saira Brar Q3: How often do you have si x or more drinks on one occasion? Never 11/27/2023 2:57 PM Saira Brar documented as of this encounter Plan of Treatment Upcoming Encounters Date Type Department Care Team (Late st Contact Info) Description 04/17/2024 9:00 AM BRAZING MACHINE FEEDER OCAC [facility] [address] [place] [address] [place] 07/04/2024 10:30 AM CDT [facility] - [place] [address] [place] [address] Karen Rodriguez APRN, SUPERVISOR TUNNEL HEADING #2 [facility], [address] [place] [address] documented as of this encounter Visit Diagnoses Not on filedocumented in this encounter Additional Health Concerns Infection Onset Date Last Indicated Resolved Time COVID - 19 12/18/2023 12/18/2023 12/18/2023 1:39 PM CDT COVID - 19 Confirmed 12/18/2023 12/18/2023 024 12:17 AM BRAZING MACHINE FEEDER Assessment Noted Time PHQ-9 Depression Total Score: 1 06/06/19 23 8:00 AM CDT documented as of this encounter Care Teams Block Cleaner Relationship Specialty Start Date End Date David Patton MD [address] [place] [address] PCP - General Internal Medicine 11/26/23 11/29/23 Timo Mckeon MD [address] [place] [address] PCP - General Family Medicine 12/12/23 Prosper Browne MD [address] [phone] Consulting Physician General Surgery 03/24/21 Sarath Gonsalez MD #[address] [address] Sql Ssrs Ssis Developer Cardiovascular Disease - Cardiology 08/11/21 01/30/24 Ally Caraballo MD #[address] [address] Consulting Physician Sleep Medicine 08/05/22 [place] [address] [place] [address] Consulting Physician Otolaryngology 08/05/22 Santiago Dasilva MD [address] [place] [address] [address] Consulting Physician Pulmonary Disease 08/05/22 Yusef Carias MD [address] [place] [address] Consulting Physician Pain Medicine-Pain Management 09/22/22 Viraj Luna MD [address] [facility] [address] [facility] [address] [place] [address] Consulting Physician Gastroenterology 10/08/22 Karen Rodriguez APRN, SUPERVISOR TUNNEL HEADING #2 [facility], [address] [place] [address] Nurse Practitioner Advanced Practice Nurse 04/20/23 Dk Friedman APRN, CLINICAL PROJECT LEADER [address] [place] [phone] [facility] (VAC) ELEMENT WINDING MACHINE TENDER Advanced Practice Nurse 11/26/23 11/30/23 documented as of this encounter
--- OUTSIDE RECORDS SUMMARY | 2024-04-15 14:14 | XMS_ITS | Encounter Summary ---
Author Organization [facility] Address [address] [place] [address] Phone Care Team Providers Care [place] Operator Name Role Phone Prosper Browne MD Unavailable Sarath Gonsalez MD Unavailable David Marks MD Primary Care Provider Ally Caraballo MD Unavailable Jojo Skinner MD Unavailable Santiago Dasilva MD Unavailable [phone] Yusef Carias MD Unavailable [phone] Viraj Luna MD Unavailable [phone] Timo Mckeon MD Primary Care Provider [phone] Karen Rodriguez APRN, SAW GRINDER Unavailable + [phone] Deborah Clark RN Unavailable UnavailDk Mendez PULP PRESS TENDER, SUBSTITUTE SCHOOL NURSE Unavailable David Patton MD Primary Care Provider Timo Mckeon MD Primary Care Provider [phone] Reason for Visit * Reason Comments Medication Refill Encounter Details Date Type Department Care Team (Late st Contact Info) Description 08/24/2022 Refill [facility] [address] [place] [address] David Patton MD [address] [place] [address] Medication Refill Social History Tobacco Use Types Packs/Day Years Used Date Smoking Tobacco: Every Day Cigarettes 4 50 Smokeless Tobacco: Never Comments:Currently smoking l ess than 0.5 PPD. Started smoking at age 9 Smoked 3-4 packs/day at the most in the past Alcohol Use Standard Drinks/Week Comments Never 0 (1 standard drink = 0.6 oz pur e alcohol) AUDIT-C Answer Date Recorded Q1: How often do you have a drink containing alc ohol? Never 01/15/2020 Average Number of Drinks Not on file 020 Frequency of Binge Drinking Not on file 12/24 PHQ-2 Answer Date Recorded Total Score - Questions 1-9 1 05/23 Sexually Active Control Partners Comments Not Currently Comments No Sex and Gender Information Value Date Recorded Sex Assigned at Female 11/27/2022 1:29 AM CDT Legal Sex Female 11:20 PM CDT Gender Identity Female 11/27/2022 1:29 AM CDT Sexual Orientation Not on file COVID-19 Exposure Response Date Recorded In the last 10 days, have yo u been in contact with someone who was confirmed or suspected to have Coronavirus/COVID-19? No / Unsure 08/04/2022 8:28 AM CDT documented as of this encounter Miscellaneous Notes * Telephone Encounter - David Patton MD - 08/24/2022 10:00 AM CDT Refill request approved. * Telephone Encounter - Lizbeth Whiteside RN - 08/24/2022 9:32 AM CDT Per nursing clinical judgement, provider to review and approve the medication(s) order(s) if appropriate. Requested Prescriptions Pending Prescriptions Disp Refills rOPINIRole (REQUIP) 1 MG Tablet [Pharmacy Med Name: ROPINIROLE HCL 1MG TABLET] 90 Tablet 1 Sig: TAKE THREE (3) TABLETS BY MOUTH EVERY EVENING. Antiparkinson Dopaminergics and COMT Protocol Passed - 08/24/2022 9:16 AM Passed - Visit with relevant provider in the past 9 months or upcoming 90 days Recent Visits Date Type Provider Dept 08/05/22 Office Visit David Patton MD [facility] 08/04/22 Clinical Support [facility] [place] [facility] [place] 06/05/22 Office Visit Miguel Worrell MD [facility] 01/29/22 Office Visit Miguel Worrell MD [facility] [place] Showing recent visits within past 270 days and meeting all other requirements Future Appointments Date Type Provider Dept 09/29/22 Appointment Miguel Worrell MD [facility] [place] Showing future appointments within next 90 days and meeting all other requirements Passed - Blood pressure on record in past 12 months Clinician-entered: BP Readings from Last 3 Encounters: 08/05/22 130/80 07/14/22 158/85 06/30/22 105/74 Patient-entered: No data recorded documented in this encounter Plan of Treatment Upcoming Encounters Date Type Department Care Team (Late st Contact Info) Description 04/17/2024 9:00 AM PIPELINE CONSTRUCTION INSPECTOR OCAC [facility] [address] [place] [address] [place] 07/04/2024 10:30 AM CDT Office Visit [facility] - Cardiology - [place] [address] [place] [address] Karen Rodriguez APRN, SAW GRINDER #2 [facility], [address] [place] [address] documented as of this encounter Visit Diagnoses Diagnosis Restless legs syndrome Restless legs syndrome (RLS) documented in this encounter Additional Health Concerns Infection Onset Date Last Indicated Resolved Time COVID - 19 11/17/2023 11/17/2023 11/17/2023 7:31 PM CDT COVID - 19 12/18/2023 12/18/2023 12/18/2023 1:39 PM CDT COVID - 19 Confirmed 12/18/2023 12/18/2023 024 12:17 AM PIPELINE CONSTRUCTION INSPECTOR Assessment Noted Time PHQ-9 Depression Total Score: 1 06/06/19 23 8:00 AM CDT documented as of this encounter Care Teams [place]umkeag Operator Relationship Specialty Start Date End Date David Patton MD [address] [place] [address] PCP - General Internal Medicine 08/05/22 11/29/22 Timo Mckeon MD [address] [place] [address] PCP - General Family Medicine 11/30/22 11/25/23 David Patton MD [address] [place] [address] PCP - General Internal Medicine 11/26/23 11/29/23 Timo Mckeon MD [address] [place] [address] PCP - General Family Medicine 12/12/23 Prosper Browne MD #[address] [phone] Consulting Physician General Surgery 03/24/21 Sarath Gonsalez MD #[address] [address] Paint Laboratory Technician Cardiovascular Disease - Cardiology 08/11/21 01/30/24 Ally Caraballo MD [address] [place] [address] Consulting Physician Sleep Medicine 08/05/22 [place] [address] [place] [address] Consulting Physician Otolaryngology 08/05/22 Santiago Dasilva MD [address] [facility] [address] [place] [address] Consulting Physician Pulmonary Disease 08/05/22 Yusef Carias MD [address] [place] [address] Consulting Physician Pain Medicine-Pain Management 09/22/22 Viraj Luna MD [address] [facility] [address] [place] [address] Consulting Physician Gastroenterology 10/08/22 Karen Rodriguez APRN, SAW GRINDER #2 [facility], [address] [place] [address] Nurse Practitioner Advanced Practice Nurse 04/20/23 Deborah Clark RN [place] Nurse Navigator 11/24/23 11/26/23 Dk Friedman APRN, SUBSTITUTE SCHOOL NURSE [address] [place] [address] [facility] (VAC) LABOR LAW PROFESSOR Advanced Practice Nurse 11/26/23 11/30/23 documented as of this encounter
--- OUTSIDE RECORDS SUMMARY | 2024-04-15 14:14 | XMS_ITS | Encounter Summary ---
Author Organization [facility] Address [address] [place] [address] Phone Care Team Providers Care Whittling Room Operator Name Role Phone Miguel Worrell MD Primary Care Provider [phone] Prosper Browne MD Unavailable [phone] Sarath Gonsalez MD Unavailable [facility] David Eller MD Primary Care Provider [phone] Ally Caraballo MD Unavailable Jojo Skinner MD Unavailable [phone] Santiago Dasilva MD Unavailable [phone] Yusef Carias MD Unavailable + [phone] Viraj Luna MD Unavailable [phone] Timo Mckeon MD Primary Care Provider [phone] Karen Rodriguez APRN, RADIOLOGICAL EQUIPMENT SPECIALIST Unavailable + [phone] Deborah Clark RN Unavailable UnavailDk Mendez APRN, PAYROLL MASTER Unavailable [phone] David Patton MD Primary Care Provider [phone] Timo Mckeon MD Primary Care Provider [phone] Reason for Visit * Reason Comments Medication Refill Encounter Details Date Type Department Care Team (Late st Contact Info) Description 07/04/2022 Refill [facility] [place] [address] [place] [phone] Miguel Worrell MD [address] [place] [address] Medication Refill Social History Tobacco Use Types Packs/Day Years Used Date Smoking Tobacco: Every Day Cigarettes Smokeless Tobacco: Never Comments:pack last 3 days Alcohol Use Standard Drinks/Week Comments Never 0 [...] suspected to have Coronavirus/COVID-19? No / Unsure 06/30/2022 12:37 PM CDT documented as of this encounter Miscellaneous Notes * Telephone Encounter - Nakita Christine RN - 07/06/2022 9:26 AM CDT Reordered 04/06/22 - 4 months - fill dates 04/06/22, 04/22/22, 06/10/22 - refill on file for June documented in this encounter Plan of Treatment Upcoming Encounters Date Type Department Care Team (Late Contact Info) Description 04/17/2024 9:00 AM STRETCHING MACHINE TENDER FRAME OC[facility] [address] [place] [address] [place] 07/04/2024 10:30 AM CDT Office Visit [facility] - [place] [address] [place] [address] Karen Rodriguez APRN, RADIOLOGICAL EQUIPMENT SPECIALIST #2 [facility], [address] [place] [address] documented as of this encounter Visit Diagnoses Not on filedocumented in this encounter Additional Health Concerns Infection Onset Date Last Indicated Resolved Time COVID - 19 11/17/2023 11/17/2023 11/17/2023 7:31 PM CDT COVID - 19 12/18/2023 12/18/2023 12/18/2023 1:39 PM CDT COVID - 19 Confirmed 12/18/2023 12/18/2023 024 12:17 AM STRETCHING MACHINE TENDER FRAME Assessment Noted Time PHQ-9 Depression Total Score: 1 06/06/19 23 8:00 AM CDT documented as of this encounter Care Teams Whittling Room Operator Relationship Specialty Start Date End Date Miguel Worrell MD PCP - General Family Medicine 03/03/21 08/04/22 David Patton MD [address] [place] [address] PCP - General Internal Medicine 08/05/22 11/29/22 Timo Mckeon MD [address] [place] [address] PCP - General Family Medicine 11/30/22 11/25/23 David Patton MD [address] [place] [address] PCP - General Internal Medicine 11/26/23 11/29/23 Timo Mckeon MD [address] [place] [address] PCP - General Family Medicine 12/12/23 Prosper Browne MD #2 [facility] [address] [place] [address] Consulting Physician General Surgery 03/24/21 Sarath Gonsalez MD #[address] [address] Seed Packer Cardiovascular Disease - Cardiology 08/11/21 01/30/24 Ally Caraballo MD [address] [place] [address] Consulting Physician Sleep Medicine 08/05/22 [place] [address] [place] [address] Consulting Physician Otolaryngology 08/05/22 Santiago Dasilva MD [address] [place] [address] [facility] [address] [place] [address] Consulting Physician Pulmonary Disease 08/05/22 Yusef Carias MD [address] [place] [address] Consulting Physician Pain Medicine-Pain Management 09/22/22 Viraj Luna MD 4 [facility] [address] [place] [address] Consulting Physician Gastroenterology 10/08/22 Karen Rodriguez, SENIOR ACCOUNT CLERK, RADIOLOGICAL EQUIPMENT SPECIALIST #2 [facility], [address] [place] [address] Nurse Practitioner Advanced Practice Nurse 04/20/23 Deborah Clark RN [place] Nurse Navigator 11/24/23 11/26/23 Dk Friedman APRN, PAYROLL MASTER [address] [place] [address] Virtual [facility] (VAC) GARBAGE PICK UP WORKER Advanced Practice Nurse 11/26/23 11/30/23 documented as of this encounter
--- OUTSIDE RECORDS SUMMARY | 2024-04-15 14:14 | XMS_ITS | Encounter Summary ---
Author Organization [facility] Address [address] [place] [address] Phone Care Team Providers Care Track Helper Name Role Phone Miguel Worrell MD Primary Care Provider [phone] Prosper Browne MD Unavailable [phone] Sarath Gonsalez MD Unavailable [facility] David Eller MD Primary Care Provider [phone] Ally Caraballo MD Unavailable Jojo Skinner MD Unavailable [phone] Santiago Dasilva MD Unavailable [phone] Yusef Carias MD Unavailable + [phone] Viraj Luna MD Unavailable [phone] Timo Mckeon MD Primary Care Provider [phone] Karen Rodriguez APRN, MFG ASSOC Unavailable + [phone] Deborah Clark RN Unavailable UnavailDk Mendez APRN, PRODUCT SUPPORT CONSULTANT Unavailable [phone] David Patton MD Primary Care Provider [phone] Timo Mckeon MD Primary Care Provider [phone] Reason for Visit * Reason Comments Medication Refill Encounter Details Date Type Department Care Team (Late st Contact Info) Description 07/03/2022 Refill [facility] [address] [place] [phone] Miguel Worrell MD [address] [place] [address] Medication Refill Social History Tobacco Use Types [...] Telephone Encounter - Nakita Christine RN - 07/03/2022 4:33 PM CDT PDMP 05/18/22 Medication failed the protocol, provider to review and approve the medication order if appropriate. Requested Prescriptions Pending Prescriptions Disp Refills clonazePAM (KlonoPIN) 0.5 MG Tablet [Pharmacy Med Name: CLONAZEPAM 0.5MG TABLET] 60 Tablet 0 Sig: TAKE ONE (1) TABLET BY MOUTH TWO (2) TIMES DAILY. Not Delegated - Clonazepam Protocol Failed - 07/03/2022 3:27 PM Failed - This refill cannot be delegated Passed - Visit with relevant provider in past 12 months or upcoming days Recent Visits Date Type Provider Dept 06/05/22 Office Visit Miguel Worrell MD [facility] 01/29/22 Office Visit Miguel Worrell MD [facility] 11/18/21 Office Visit Miguel Worrell MD [facility] 10/20/21 Office Visit Rosa Guthrie, PAC [facility] [place] 10/07/[address] APRN, MFG ASSOC [facility] [place] 07/15/21 Office Visit Miguel Worrell MD [facility] 07/08/[address] APRN, MFG ASSOC [facility] [place] Showing recent visits within past 365 days and meeting all other requirements Future Appointments Date Type Provider Dept 09/29/22 Appointment Miguel Worrell MD [facility] Showing future appointments within next 90 days and meeting all other requirements documented in this encounter Plan of Treatment Upcoming Encounters Date Type Department Care Team (Late st Contact Info) Description 04/17/2024 9:00 AM MANAGER OF CONSTRUCTION [facility] [address] [place] [address] [place] 07/04/2024 10:30 AM CDT [facility] - [place] [address] [place] [address] Karen Rodriguez APRN, MFG ASSOC [address] [facility] [address] [place] [address] documented as of this encounter Visit Diagnoses Diagnosis Generalized anxiety disorder documented in this encounter Additional Health Concerns Infection Onset Date Last Indicated Resolved Time COVID - 19 11/17/2023 11/17/2023 11/17/2023 7:31 PM CDT COVID - 19 12/18/2023 12/18/2023 12/18/2023 1:39 PM CDT COVID - 19 Confirmed 12/18/2023 12/18/2023 024 12:17 AM MANAGER OF CONSTRUCTION Assessment Noted Time PHQ-9 Depression Total Score: 1 06/06/19 23 8:00 AM CDT documented as of this encounter Care Teams Track Helper Relationship Specialty Start Date End Date Miguel Worrell MD PCP - General Family Medicine 03/03/21 08/04/22 David Patton MD [address] [place] [address] PCP - General Internal Medicine 08/05/22 11/29/22 Timo Mckeon MD [address] [place] [address] PCP - General Family Medicine 11/30/22 11/25/23 David Patton MD [address] [place] [address] PCP - General Internal Medicine 11/26/23 11/29/23 Timo Mckeon MD [address] [place] [id number] PCP - General Family Medicine 12/12/23 Prosper Browne MD [address] [phone] Consulting Physician General Surgery 03/24/21 Sarath Gonsalez MD #[address] [address] Rn Document Improvement Cardiovascular Disease - Cardiology 08/11/21 01/30/24 Ally Caraballo MD [address] [place] [address] Consulting Physician Sleep Medicine 08/05/22 [place] [address] [place] [address] Consulting Physician Otolaryngology 08/05/22 Santiago Dasilva MD [address] [place] [address] [address] [place] [address] Consulting Physician Pulmonary Disease 08/05/22 Yusef Carias MD [address] [place] [address] Consulting Physician Pain Medicine-Pain Management 09/22/22 Viraj Luna MD [address] [facility] [facility] [address] [place] [address] Consulting Physician Gastroenterology 10/08/22 Karen Rodriguez APRN, MFG ASSOC [address]2 [facility], [address] [place] [address] Nurse Practitioner Advanced Practice Nurse 04/20/23 Deborah Clark RN [place] Nurse Navigator 11/24/23 11/26/23 Dk Friedman APRN, PRODUCT SUPPORT CONSULTANT [address] [place] [id number] [facility]) ASPHALT PAVER OPERATOR Advanced Practice Nurse 11/26/23 11/30/23 documented as of this encounter
--- OUTSIDE RECORDS SUMMARY | 2024-04-15 14:14 | XMS_ITS | Encounter Summary ---
Author Organization [facility] Address [address] [place] [address] Phone Care Team Providers Care Art Director Name Role Phone Prosper Browne MD Unavailable Sarath Gonsalez MD Unavailable Ally Lambert MD Unavailable Jojo Skinner MD Unavailable Santiago Dasilva MD Unavailable [phone] Yusef Carias MD Unavailable [phone] Viraj Luna MD Unavailable [phone] Timo Mckeon MD Primary Care Provider Karen Rodriguez APRN, DISCHARGE PLANNER Unavailable + [phone] Deborah Clark RN Unavailable UnavailDk Mendez MORTGAGE LOAN PROCESSOR, CORE ANALYST Unavailable [phone] David Patton MD Primary Care Provider Timo Mckeon MD Primary Care Provider [phone] Reason for Visit * Reason Comments Medication Refill Encounter Details Date Type Department Care Team (Late st Contact Info) Description 01/08/2023 Refill [facility] [address] [place] [address] David Patton MD [address] [place] [address] Medication Refill Social History Tobacco Use Types Packs/Day Years Used Date Smoking Tobacco: Former Cigarettes 0.5 50 Smokeless Tobacco: Never Comments:Currently smoking l [...] Total Score - Questions 1-9 1 05/23 Education Answer Date Recorded What is the [...] suspected to have Coronavirus/COVID-19? No / Unsure 12/31/2022 1:17 PM POWER GENERATION TECHNICIAN documented as of this encounter Miscellaneous Notes * Telephone Encounter - Ale Haley RN - 01/08/2023 10:31 AM POWER GENERATION TECHNICIAN Patient no longer has a PCP in this office. R GENERATION TECHNICIAN documented in this encounter Plan of Treatment Upcoming Encounters Date Type Department Care Team (Late st Contact Info) Description 04/17/2024 9:00 AM POWER GENERATION TECHNICIAN [facility] [address] [place] [phone] [place] 07/04/2024 10:30 AM CDT Office Visit [facility] - [place] [address] [place] [phone] Karen Rodriguez APRN, DISCHARGE PLANNER [address] [facility] [place] [address] documented as of this encounter Visit Diagnoses Diagnosis Generalized anxiety disorder documented in this encounter Additional Health Concerns Infection Onset Date Last Indicated Resolved Time COVID - 19 11/17/2023 11/17/2023 11/17/2023 7:31 PM CDT COVID - 19 12/18/2023 12/18/2023 12/18/2023 1:39 PM CDT COVID - 19 Confirmed 12/18/2023 12/18/2023 024 12:17 AM POWER GENERATION TECHNICIAN Assessment Noted Time PHQ-9 Depression Total Score: 1 06/06/19 23 8:00 AM CDT documented as of this encounter Care Teams Art Director Relationship Specialty Start Date End Date Timo Mckeon MD [address] [place] [address] PCP - General Family Medicine 11/30/22 11/25/23 David Patton MD [address] [place] [address] PCP - General Internal Medicine 11/26/23 11/29/23 Timo Mckeon MD [address] [place] [address] PCP - General Family Medicine 12/12/23 Prosper Browne MD [address] [facility] [address] [place] [address] Consulting Physician General Surgery 03/24/21 Sarath Gonsalez MD [facility] [address] [place] [address] Production Administrator Cardiovascular Disease - Cardiology 08/11/21 01/30/24 Ally Caraballo MD [facility] [address] [place] [address] Consulting Physician Sleep Medicine 08/05/22 [place] [address] [place], [place] [id number] Consulting Physician Otolaryngology 08/05/22 Santiago Dasilva MD [address] [place] [address] [address] [place], [place] [phone] Consulting Physician Pulmonary Disease 08/05/22 Yusef Carias MD [address] [place] [address] Consulting Physician Pain Medicine-Pain Management 09/22/22 Viraj Luna MD [address] [place] [address] [facility] [address] [place] [address] Consulting Physician Gastroenterology 10/08/22 Karen Rodriguez, MORTGAGE LOAN PROCESSOR, DISCHARGE PLANNER [address] [facility] [address] [place] [address] Nurse Practitioner Advanced Practice Nurse 04/20/23 Deborah Clark RN [place] Nurse Navigator 11/24/23 11/26/23 Dk Friedman APRN, CORE ANALYST [address] [place] [id number] [facility] ([facility]) CANDY DIPPER HAND Advanced Practice Nurse 11/26/23 11/30/23 documented as of this encounter
--- OUTSIDE RECORDS SUMMARY | 2024-04-15 14:14 | XMS_ITS | Encounter Summary ---
Author Organization [facility] Address [address] [facility] [place] [address] Phone Care Team Providers Care Urban And Regional Planner Name Role Phone Prosper Browne MD Unavailable [phone] Ally Caraballo MD Unavailable Jojo Skinner MD Unavailable Santiago Dasilva MD Unavailable [phone] Yusef Carias MD Unavailable + [phone] Viraj Luna MD Unavailable [phone] Karen Rodriguez APRN, QUALITY ASSURANCE MONITOR Unavailable + [phone] Timo Mckeon MD Primary Care Provider [phone] Reason for Visit * Reason Onset Date Comments COPD 04/15/2024 Encounter Details Date Type Department Care Team (Late st Contact Info) Description 04/15/2024 Telephone [facility] [address] [place] [address] Laurie Mcguire, RN [place] COPD Social History Tobacco Use Types Packs/Day Years Used Date Smoking Tobacco: Every Day Cigarettes 0.5 50 Smokeless Tobacco: Never Comments:Currently smoking l ess than 0.5 PPD. Started smoking at age 9 Smoked 3-4 packs/day at the most in the past Alcohol Use Standard Drinks/Week Comments Never 0 (1 standard drink = 0.6 oz pur e alcohol) [facility] Utilities Answer Date Recorded In the past 12 months has th e electric, gas, oil, or water company threatened to shut off services in your home? No 01/07/2024 Social Connection and Isolation Panel [NHANES] A nswer Date Recorded In a typical week, how many times do you talk on the phone with family, friends, or neighbors? Patient declined 01/07/2024 How often do you get togethe r with friends or relatives? Patient declined 01/07/2024 How often do you attend religious or sabianism serv ices? Patient declined 01/07/2024 Do you belong to any clubs o r organizations such as religious groups, unions, fraternal or athletic groups, or school groups? Patient declined 01/07/2024 How often do you attend meet ings of the clubs or organizations you belong to? Patient declined 01/07/2024 Are you , , di vorced, , never , or living with a partner? 01/07/2024 AUDIT-C Answer Date Recorded Q1: How often do you have a drink containing alcohol? Never 01/07/2024 Q2: How many drinks containi ng alcohol do you have on a typical day when you are drinking? Patient does not drink Q3: How often do you have si x or more drinks on one occasion? Never 01/07/2024 Overall Financial Resource Strain (CARDIA) Answe r Date Recorded How hard is it for you to pa y for the very basics like food, housing, medical care, and heating? Patient declined 01/07/2024 PHQ-2 Answer Date Recorded Total Score - Questions 1-9 1 05/23 [facility] - Occupational Stress Questionnaire Answer Date Recorded Do you feel stress - tense, restless, nervous, or anxious, or unable to sleep at night because your mind is troubled all the time - these days? Patient declined 01/07/2024 Exercise Vital Sign Answer Date Recorde d On average, how many days pe r week do you engage in moderate to strenuous exercise (like a brisk walk)? Patient declined On average, how many minutes do you engage in exercise at this level? Patient declined 01/07/2024 Hunger Vital Sign Answer Date Recorded Within the past 12 months, y ou worried that your food would run out before you got the money to buy more. Patient declined Within the past 12 months, t he food you bought just didn't last and you didn't have money to get more. Patient declined PRAPARE - Transportation Answer Date Re corded In the past 12 months, has l ack of transportation kept you from medical appointments or from getting medications? Patient declined 01/07/2024 In the past 12 months, has l ack of transportation kept you from meetings, work, or from getting things needed for daily living? Patient declined 01/07/2024 Housing Stability Vital Sign Answer Efraín e Recorded In the last 12 months, was t here a time when you were not able to pay the mortgage or rent on time? Patient declined 01/07/20 24 In the past 12 months, how m any times have you moved where you were living? 1 01/07/2024 At any time in the past 12 m [facility], were you homeless or living in a [place] facility (including now)? Patient declined 01/07/2024 Education Answer Date Recorded What is the [...] on file documented as of this encounter Miscellaneous Notes * Telephone Encounter - Laurie Mcguire RN - 04/15/2024 1:11 PM CST [facility] Patient was contacted regarding a Care Signal alert. Introduced self to caller. Patient is enrolledin [facility] Chronic Condition Remote Patient Monitoring Program. Patient is set to check in via text on Wednesday and Wednesday at 10:00 am. Situation: Patient checked with with worse breathing. Background: Patient enrolled in hypertension and chronic obstrutive pulmonary disease (COPD) programs. Other pertinent history including diabetes, congestive heart failure, asthma, atrial fibrillation, coronary artery disease, and kidney disease. Patient has been triaged on 04/05 and 04/12 with disposition for Emergency Medical Services/911. Patient refused dispositions at those times and was not seen. Assessment: Patient sounds tired and congested during this call. Able to speak in full sentences without distress. States her chest is on fire, throat hurts and coughing a lot. States she is going tohave her roommate take her to Urgent Care within the next hour. Patient states she has been stubborn, but is understanding that it is time for her to be seen. States she feels it moving to her chest.Discussed the importance of being seen now to get treatment to avoid further hospitalization. Recommendation: Patient states she is having her roommate take her to Urgent Care within the next hour. Advised to call if any issues arise or unable to be seen. All questions and concerns were answered. For Remote Patient Monitoring patient reported vitals, please navigate to review flowsheets and select [facility] PATIENT REPORTED DATA [[id number]]. OPHYSIOLOGIST documented in this encounter Plan of Treatment Upcoming Encounters Date Type Department Care Team (Late st Contact Info) Description 04/17/2024 9:00 AM NEUROPHYSIOLOGIST [facility] [address] [place] [address] [place] 07/04/2024 10:30 AM CDT Office Visit [facility] - [place] [address] [place] [address] Karen Rodriguez, OPERATIONS SUPPORT MANAGER, QUALITY ASSURANCE MONITOR #2 [facility] [address] [place] [address] documented as of this encounter Visit Diagnoses Not on filedocumented in this encounter Additional Health Concerns Assessment Noted Time PHQ-9 Depression Total Score: 1 06/06/19 23 8:00 AM CDT documented as of this encounter Care Teams Urban And Regional Planner Relationship Specialty Start Date End Date Timo Mckeon MD #2 [facility] [address] [place] [address] PCP - General Family Medicine 12/12/23 Prosper Browne MD [address] [facility] [address] [place] [phone] Consulting Physician General Surgery 03/24/21 Ally Caraballo MD [address] [facility] [address] [place] [phone] Consulting Physician Sleep Medicine 08/05/22 [place] [address] [place] [address] Consulting Physician Otolaryngology 08/05/22 Santiago Dasilva MD 4 [facility] [address] [address] Consulting Physician Pulmonary Disease 08/05/22 Yusef Carias MD [facility] [address] [place], [place] [id number] Consulting Physician Pain Medicine-Pain Management 09/22/22 Viraj Luna MD [address] [place] [address] [address] [place] [address] Consulting Physician Gastroenterology 10/08/22 Karen Rodriguez, OPERATIONS SUPPORT MANAGER, QUALITY ASSURANCE MONITOR #2 [facility] [address] [place] [address] Nurse Practitioner Advanced Practice Nurse 04/20/23 documented as of this encounter
--- OUTSIDE RECORDS SUMMARY | 2024-04-15 14:14 | XMS_ITS ---
Author Organization [facility] Address [address] [place] [address] Phone Care Team Providers Care Systems Mechanic Name Role Phone Pavan Prosper Sanchez MD Unavailable [phone] Ally Caraballo MD Unavailable Jojo Skinner MD Unavailable [phone] Santiago Dasilva MD Unavailable [phone] Yusef Carias MD Unavailable + [phone] Viraj Luna MD Unavailable [phone] Karen Rodriguez INSTRUCTOR OF SPANISH, GLUING MACHINE OPERATOR ELECTRONIC Unavailable + [phone] Timo Mckeon MD Primary Care Provider [phone] [facility] Chronic Condition Monitoring Status:Enrolled (Active) Start date:01/13/2024 Enrollment date:01/13/2024 Related social drivers of health:Intimate Partner Violence, Social Connections, Tobacco Use, Financial Resource Strain, Stress, Physical Activity, Food Insecurity, Transportation Needs, Housing Stability Continued Care and Services Coordination
--- OUTSIDE RECORDS SUMMARY | 2024-04-15 14:14 | XMS_ITS | Encounter Summary ---
Author Organization [facility] Address [address] [facility] [address] [place] [address] Phone Care Team Providers Care Instructional Manager Name Role Phone Prosper Browne MD Unavailable Sarath Gonsalez MD Unavailable David Marks MD Primary Care Provider Ally Caraballo MD Unavailable Jojo Skinner MD Unavailable Santiago Dasilva MD Unavailable [phone] Yusef Carias MD Unavailable [phone] Viraj Luna MD Unavailable [phone] Timo Mckeon MD Primary Care Provider [phone] Karen Rodriguez APRN, PHYSICAL TESTING SUPERVISOR Unavailable + [phone] Deborah Clark RN Unavailable UnavailDk Mendez REGULATORY AFFAIRS STRATEGY SPECIALIST, SONAR SUBSYSTEM EQUIPMENT OPERATOR Unavailable David Patton MD Primary Care Provider Timo Mckeon MD Primary Care Provider [phone] Reason for Visit * Reason Comments Medication Refill Encounter Details Date Type Department Care Team (Late st Contact Info) Description 08/24/2022 Refill [facility] #2 [place] [address] Miguel Worrell MD #1 [place] [address] Medication Refill Social History Tobacco Use Types [...] Miscellaneous Notes * Telephone Encounter - Ale Dean RN - 08/26/2022 1:27 PM CDT PDMP 08-04-22 30 day supply, #60 Medication failed the protocol, provider to review and approve the medication order if appropriate. Requested Prescriptions Pending Prescriptions Disp Refills clonazePAM (KlonoPIN) 0.5 MG Tablet [Pharmacy Med Name: CLONAZEPAM 0.5MG TABLET] 60 Tablet 0 Sig: TAKE 1 TABLET BY MOUTH TWO (2) TIMES DAILY. Not Delegated - Clonazepam Protocol Failed - 08/24/2022 4:08 PM Failed - This refill cannot be delegated Passed - Visit with relevant provider in past 12 months or upcoming 90 days Recent Visits Date Type Provider Dept 08/05/22 Office Visit David Patton MD [facility] 06/05/22 Office Visit Miguel Worrell MD [facility] 01/29/22 Office Visit Miguel Worrell MD [facility] 11/18/21 Office Visit Miguel Worrell MD [facility] 10/20/21 Office Visit Rosa Guthrie PAC [facility] [place] 10/07/[address] APRN, PHYSICAL TESTING SUPERVISOR [facility] visits within past 365 days and meeting all other requirements Future Appointments Date Type Provider Dept 09/29/22 Appointment Miguel Worrell MD [facility] Showing future appointments within next 90 days and meeting all other requirements documented in this encounter Plan of Treatment Upcoming Encounters Date Type Department Care Team (Late st Contact Info) Description 04/17/2024 9:00 AM TOXICOLOGIST [facility] [address] [place] [address] [place] 07/04/2024 10:30 AM CDT Office Visit [facility] - Cardiology - [place] #2 [place] [address] Karen Rodriguez APRN, PHYSICAL TESTING SUPERVISOR #2 [facility], [address] [place] [address] documented as of this encounter Visit Diagnoses Diagnosis Generalized anxiety disorder documented in this encounter Additional Health Concerns Infection Onset Date Last Indicated Resolved Time COVID - 19 11/17/2023 11/17/2023 11/17/2023 7:31 PM CDT COVID - 19 12/18/2023 12/18/2023 12/18/2023 1:39 PM CDT COVID - 19 Confirmed 12/18/2023 12/18/202301/06/2 024 12:17 AM TOXICOLOGIST Assessment Noted Time PHQ-9 Depression Total Score: 1 06/06/19 23 8:00 AM CDT documented as of this encounter Care Teams Instructional Manager Relationship Specialty Start Date End Date David Patton MD [address] [place] [address] PCP - General Internal Medicine 08/05/22 11/29/22 Timo Mckeon MD [address] [place] [address] PCP - General Family Medicine 11/30/22 11/25/23 David Patton MD [address] [place] [address] PCP - General Internal Medicine 11/26/23 11/29/23 Timo Mckeon MD [address] [place] [address] PCP - General Family Medicine 12/12/23 Prosper Browne MD #[address] [phone] Consulting Physician General Surgery 03/24/21 Sarath Gonsalez MD #[address] [address] Destaticizer Feeder Cardiovascular Disease - Cardiology 08/11/21 01/30/24 Ally Caraballo MD [address] [place] [address] Consulting Physician Sleep Medicine 08/05/22 [place] [address] [place] [address] Consulting Physician Otolaryngology 08/05/22 Santiago Dasilva MD 4 [facility] [address] [place] [address] Consulting Physician Pulmonary Disease 08/05/22 Yusef Carias MD [address] [place] [address] Consulting Physician Pain Medicine-Pain Management 09/22/22 Viraj Luna MD 4 [facility] [address] [place] [address] Consulting Physician Gastroenterology 10/08/22 Karen Rodriguez APRN, PHYSICAL TESTING SUPERVISOR #2 [facility], [address] [place] [address] Nurse Practitioner Advanced Practice Nurse 04/20/23 Deborah Clark, RN [place] Nurse Navigator 11/24/23 11/26/23 Dk Friedman APRN, SONAR SUBSYSTEM EQUIPMENT OPERATOR [address] [place] [address] [facility] (VAC) TOURIST HOME KEEPER Advanced Practice Nurse 11/26/23 11/30/23 documented as of this encounter
--- OUTSIDE RECORDS SUMMARY | 2024-04-15 14:14 | XMS_ITS | Encounter Summary ---
Author Organization [facility] Address [address] [facility] [address] [place] [address] Phone Care Team Providers Care Hydraulic Hammer Operator Name Role Phone Prosper Browne MD Unavailable Sarath Gonsalez MD Unavailable David Marks MD Primary Care Provider Ally Caraballo MD Unavailable Jojo Skinner MD Unavailable Santiago Dasilva MD Unavailable [phone] Yusef Carias MD Unavailable [phone] Viraj Luna MD Unavailable [phone] Timo Mckeon MD Primary Care Provider [phone] Karen Rodriguez APRN, OUTSIDE PARTS SALES Unavailable + [phone] Deborah Clark RN Unavailable UnavailDk Mendez KENO TERMINAL OPERATOR, ELECTRICAL PROJECT MANAGER Unavailable [phone] David Patton MD Primary Care Provider Timo Mckeon MD Primary Care Provider [phone] Reason for Visit * Reason Comments Medication Refill Encounter Details Date Type Department Care Team (Late st Contact Info) Description 08/24/2022 Refill [facility] #2 [place] [address] Miguel Worrell MD #1 [place] [address] Medication Refill Social History Tobacco Use Types [...] Encounter - David Patton MD - 08/24/2022 1:56 PM CDT Refill request approved. * Telephone Encounter - Ann Mansfield RN - 08/24/2022 1:39 PM CDT Per nursing clinical judgement, provider to review and approve the medication(s) order(s) if appropriate. Requested Prescriptions Pending Prescriptions Disp Refills PARoxetine (PAXIL) 40 MG Tablet [Pharmacy Med Name: PAROXETINE HCL 40MG TABLET] 90 Tablet 1 Sig: Take 1 Tablet by mouth daily. SSRI (6 Month Refill Only) Protocol Passed - 08/24/2022 9:15 AM Passed - Visit with relevant provider in past 6 months or upcoming 90 days Recent Visits Date Type Provider Dept 08/05/22 Office [facility] 06/05[facility]22 Office Visit [facility] [place] Showing recent visits within past 182 days and meeting all other requirements Future Appointments Date Type Provider Dept 09/29/22 Appointment Miguel Worrell MD [facility] Showing future appointments within next 90 days and meeting all other requirements Passed - Patient has established therapy with SSRI for at least 6 months Passed - Has an encounter in the past 6 months with a depression, anxiety, adjustment disorder, OCD, or PTSD visit diagnosis documented in this encounter Plan of Treatment Upcoming Encounters Date Type Department Care Team (Late st Contact Info) Description 04/17/2024 9:00 AM MATERNAL CHILD NURSE [facility] [address] [place] [address] [place] 07/04/2024 10:30 AM CDT Office Visit [facility] Medical [facility] - Cardiology - [place] [address] [place] [address] Karen Rodriguez KENO TERMINAL OPERATOR, OUTSIDE PARTS SALES #2 [facility], [address] [place] [address] documented as of this encounter Visit Diagnoses Not on filedocumented in this encounter Additional Health Concerns Infection Onset Date Last Indicated Resolved Time COVID - 19 11/17/2023 11/17/2023 11/17/2023 7:31 PM CDT COVID - 19 12/18/2023 12/18/2023 12/18/2023 1:39 PM CDT COVID - 19 Confirmed 12/18/2023 12/18/2023 024 12:17 AM MATERNAL CHILD NURSE Assessment Noted Time PHQ-9 Depression Total Score: 1 06/06/19 23 8:00 AM CDT documented as of this encounter Care Teams Hydraulic Hammer Operator Relationship Specialty Start Date End Date David Patton MD [address] [place] [address] PCP - General Internal Medicine 08/05/22 11/29/22 Timo Mckeon MD [address] [place] [address] PCP - General Family Medicine 11/30/22 11/25/23 David Patton MD [address] [place] [address] PCP - General Internal Medicine 11/26/23 11/29/23 Timo Mckeon MD [address] [place] [phone] PCP - General Family Medicine 12/12/23 Prosper Browne MD #[address] [phone] Consulting Physician General Surgery 03/24/21 Sarath Gonsalez MD #[address] [address] Corrections Sergeant Cardiovascular Disease - Cardiology 08/11/21 01/30/24 Ally Caraballo MD [address] [place] [address] Consulting Physician Sleep Medicine 08/05/22 [place] [address] [place] [address] Consulting Physician Otolaryngology 08/05/22 Santiago Dasilva MD [address] [place] [address] [address] [place] [address] Consulting Physician Pulmonary Disease 08/05/22 Yusef Carias MD [address] [facility] [address] Consulting Physician Pain Medicine-Pain Management 09/22/22 Viraj Luna MD [address] [place] [address] [address] [place] [address] Consulting Physician Gastroenterology 10/08/22 Karen Rodriguez APRN, OUTSIDE PARTS SALES #2 [facility], [address] [place] [address] Nurse Practitioner Advanced Practice Nurse 04/20/23 Deborah Clark, RN [place] Nurse Navigator 11/24/23 11/26/23 Dk Friedman APRN, ELECTRICAL PROJECT MANAGER [address] [place] [phone] Virtual [facility] (VAC) EMERGENCY DEPARTMENT CLINICIAN Advanced Practice Nurse 11/26/23 11/30/23 documented as of this encounter
--- OUTSIDE RECORDS SUMMARY | 2024-04-15 14:14 | XMS_ITS | Encounter Summary ---
Author Organization [facility] Address [address] [place] [address] Phone Care Team Providers Care Camp Cook Name Role Phone Prosper Browne MD Unavailable [phone] Sarath Gonsalez MD Unavailable Ally Lambert MD Unavailable Jojo Skinner MD Unavailable Santiago Dasilva MD Unavailable [phone] Yusef Carias MD Unavailable [phone] Viraj Luna MD Unavailable Timo Mckeon MD Primary Care Provider [phone] Karen Rodriguez APRN, DATA CENTER SOLUTIONS ARCHITECT Unavailable + [phone] Deborah Clark RN Unavailable UnavailDk Mendez PUBLIC INFORMATION OFFICER, FILM MOUNTER Unavailable [phone] Davdi Patton MD Primary Care Provider Timo Mckeon MD Primary Care Provider Reason for Visit * Reason Comments Medication Refill Encounter Details Date Type Department Care Team (Late st Contact Info) Description 02/23/2023 Refill [facility] #2 [place] [address] Miguel Worrell MD #1 [place] [address] Medication Refill Social History Tobacco Use Types [...] on file documented as of this encounter Plan of Treatment Upcoming Encounters Date Type Department Care Team (Late st Contact Info) Description 04/17/2024 9:00 AM TANK HOUSE SUPERVISOR [facility] [address] [place] [address] [place] 07/04/2024 10:30 AM CDT [facility] - Cardiology - [place] #2 [place] [phone] Karen Rodriguez APRN, DATA CENTER SOLUTIONS ARCHITECT #2 [facility], [address] [place] [address] documented as of this encounter Visit Diagnoses Not on filedocumented in this encounter Additional Health Concerns Infection Onset Date Last Indicated Resolved Time COVID - 19 11/17/2023 11/17/2023 11/17/2023 7:31 PM CDT COVID - 19 12/18/2023 12/18/2023 12/18/2023 1:39 PM CDT COVID - 19 Confirmed 12/18/2023 12/18/2023 11/2 024 12:17 AM TANK HOUSE SUPERVISOR Assessment Noted Time PHQ-9 Depression Total Score: 1 06/06/19 23 8:00 AM CDT documented as of this encounter Care Teams Camp Cook Relationship Specialty Start Date End Date Timo Mckeon MD [address] [place] [address] PCP - General Family Medicine 11/30/22 11/25/23 David Patton MD [address] [place] [address] PCP - General Internal Medicine 11/26/23 11/29/23 Timo Mckeon MD [address] [place] [address] PCP - General Family Medicine 12/12/23 Prosper Browne MD #[address] [phone] Consulting Physician General Surgery 03/24/21 Sarath Gonsalez MD #[address] [address] Weatherization Installer Cardiovascular Disease - Cardiology 08/11/21 01/30/24 Ally Caraballo MD #[address] [address] Consulting Physician Sleep Medicine 08/05/22 [place] [address] [place] [address] Consulting Physician Otolaryngology 08/05/22 Santiago Dasilva MD [address] [facility] [address] [place] [address] Consulting Physician Pulmonary Disease 08/05/22 Yusef Carias MD [address] [place] [address] Consulting Physician Pain Medicine-Pain Management 09/22/22 Viraj Luna MD [address] [facility] [address] [place] [address] Consulting Physician Gastroenterology 10/08/22 Karen Rodriguez, PUBLIC INFORMATION OFFICER, DATA CENTER SOLUTIONS ARCHITECT #2 [facility], [address] [place] [address] Nurse Practitioner Advanced Practice Nurse 04/20/23 Deborah Clark, RN [place] Nurse Navigator 11/24/23 11/26/23 Dk Friedman APRN, FILM MOUNTER [address] [place] [phone] Virtual [facility] (VAC) ATHLETIC TRAINING INTERNSHIP Advanced Practice Nurse 11/26/23 11/30/23 documented as of this encounter
--- OUTSIDE RECORDS SUMMARY | 2024-04-15 14:14 | XMS_ITS | Encounter Summary ---
Author Organization [facility] Address [address] [facility] [place] [address] Phone Care Team Providers Care Dioramist Name Role Phone Prosper Browne MD Unavailable [phone] Sarath Gonsalez MD Unavailable David Marks MD Primary Care Provider Ally Caraballo MD Unavailable Jojo Skinner MD Unavailable Santiago Dasilva MD Unavailable [phone] Yusef Carias MD Unavailable [phone] Viraj Luna MD Unavailable Timo Mckeon MD Primary Care Provider [phone] Karen Rodriguez APRN, DISTRICT CUSTOMS DIRECTOR Unavailable + [phone] Deborah Clark RN Unavailable UnavailDk Mendez CHROME TANNER, DIRECTOR OF FIRST IMPRESSIONS Unavailable David Patton MD Primary Care Provider Timo Mckeon MD Primary Care Provider Reason for Visit * Reason Comments Medication Refill Encounter Details Date Type Department Care Team (Late st Contact Info) Description 09/04/2022 Refill [facility] #2 [place] [address] David Patton MD [address] [place] [address] Medication Refill Social History Tobacco Use Types [...] Telephone Encounter - Ale Haley RN - 09/04/2022 9:12 AM CDT Duplicate request. documented in this encounter Plan of Treatment Upcoming Encounters Date Type Department Care Team (Late st Contact Info) Description 04/17/2024 9:00 AM CONVEYOR FEEDER OCAC [facility] [address] [place] [address] [place] 07/04/2024 10:30 AM CDT Office Visit [facility] - Cardiology - [place] #2 [place] [address] Karen Rodriguez, CHROME TANNER, DISTRICT CUSTOMS DIRECTOR #2 [facility], [address] [place] [address] documented as of this encounter Visit Diagnoses Diagnosis Generalized anxiety disorder documented in this encounter Additional Health Concerns Infection Onset Date Last Indicated Resolved Time COVID - 19 11/17/2023 11/17/2023 11/17/2023 7:31 PM CDT COVID - 19 12/18/2023 12/18/2023 12/18/2023 1:39 PM CDT COVID - 19 Confirmed 12/18/2023 12/18/2023 024 12:17 AM CONVEYOR FEEDER Assessment Noted Time PHQ-9 Depression Total Score: 1 06/06/19 23 8:00 AM CDT documented as of this encounter Care Teams Dioramist Relationship Specialty Start Date End Date David Patton MD [address] [place] [address] PCP - General Internal Medicine 08/05/22 11/29/22 Timo Mckeon MD [address] [place] [address] PCP - General Family Medicine 11/30/22 11/25/23 David Patton MD [address] [place] [address] PCP - General Internal Medicine 11/26/23 11/29/23 Timo Mckeon MD [address] [place] [phone] PCP - General Family Medicine 12/12/23 Prosper Browne MD #[address] [facility] [address] [place] [address] Consulting Physician General Surgery 03/24/21 Sarath Gonsalez MD #[address] [facility] [address] [place] [address] Black Leather Buffer Cardiovascular Disease - Cardiology 08/11/21 01/30/24 Ally Caraballo MD [address] [place] [address] Consulting Physician Sleep Medicine 08/05/22 [place] [address] [place] [address] Consulting Physician Otolaryngology 08/05/22 Santiago Dasilva MD [address] [place] [address] [address] [place], [place] [phone] Consulting Physician Pulmonary Disease 08/05/22 Yusef Carias MD [address] [place] [address] Consulting Physician Pain Medicine-Pain Management 09/22/22 Viraj Luna MD [address] [place] [address] [address] [facility] [address] [place] [address] Consulting Physician Gastroenterology 10/08/22 Karen Rodriguez APRN, DISTRICT CUSTOMS DIRECTOR #2 [facility], [address] [place] [address] Nurse Practitioner Advanced Practice Nurse 04/20/23 Deborah Clark RN [place] Nurse Navigator 11/24/23 11/26/23 Dk Friedman APRN, DIRECTOR OF FIRST IMPRESSIONS [address] [place] [address] Virtual [facility] Care (VAC) BLOCKMAN Advanced Practice Nurse 11/26/23 11/30/23 documented as of this encounter
--- OUTSIDE RECORDS SUMMARY | 2024-04-15 14:14 | XMS_ITS | Encounter Summary ---
Author Organization [facility] Address [address] [place] [address] Phone Care Team Providers Care Command Center Analyst Name Role Phone Miguel Worrell MD Primary Care Provider [phone] Prosper Browne MD Unavailable [phone] Sarath Gonsalez MD Unavailable [facility] David Eller MD Primary Care Provider [phone] Ally Caraballo MD Unavailable Jojo Skinner MD Unavailable [phone] Santiago Dasilva MD Unavailable [phone] Yusef Carias MD Unavailable + [phone] Viraj Luna MD Unavailable [phone] Timo Mckeon MD Primary Care Provider [phone] Karen Rodriguez APRN, ADVANCED PRACTICE REGISTERED NURSE Unavailable + [phone] Deborah Clark RN Unavailable UnavailDk Mendez APRN, TRAVEL OCCUPATIONAL THERAPIST Unavailable [phone] David Patton MD Primary Care Provider [phone] Timo Mckeon MD Primary Care Provider [phone] Reason for Visit * Reason Comments Medication Refill Encounter Details Date Type Department Care Team (Late st Contact Info) Description 07/28/2022 Refill [facility] [place] [address] Miguel Worrell MD [address] [place] [address] Medication Refill Social History Tobacco Use Types [...] was confirmed or suspected to have Coronavirus/COVID-19? Unable to assess 07/31/2022 10:20 AM CDT documented as of this encounter Miscellaneous Notes * Telephone Encounter - Nakita Christine RN - 07/28/2022 4:12 PM CDT Name from pharmacy: UBRELVY 100MG TABLET Will file in chart as: Ubrelvy 100 MG Tablet The original prescription was discontinued on 10/07/[address] APRN, ADVANCED PRACTICE REGISTERED NURSE for the following reason: Alternate therapy. documented in this encounter Plan of Treatment Upcoming Encounters Date Type Department Care Team (Late Contact Info) Description 04/17/2024 9:00 AM QUILL FIXER OCAC [facility] [address] [place] [address] [place] 07/04/2024 10:30 AM CDT Office Visit [facility] - Cardiology - [place] #2 [place] [address] Karen Rodriguez, COACH PROFESSIONAL ATHLETES, ADVANCED PRACTICE REGISTERED NURSE #2 [facility], [address] [place] [address] documented as of this encounter Visit Diagnoses Diagnosis Migraine with aura and without status migrainosus, not intractable Migraine with aura, without mention of intractable migraine without mention of status migrainosus Other migraine without status migrainosus, not intractable documented in this encounter Additional Health Concerns Infection Onset Date Last Indicated Resolved Time COVID - 19 11/17/2023 11/17/2023 11/17/2023 7:31 PM CDT COVID - 19 12/18/2023 12/18/2023 12/18/2023 1:39 PM CDT COVID - 19 Confirmed 12/18/2023 12/18/2023 024 12:17 AM QUILL FIXER Assessment Noted Time PHQ-9 Depression Total Score: 1 06/06/19 23 8:00 AM CDT documented as of this encounter Care Teams Command Center Analyst Relationship Specialty Start Date End Date Miguel Worrell MD PCP - General Family Medicine 03/03/21 08/04/22 David Patton MD [address] [place] [address] PCP - General Internal Medicine 08/05/22 11/29/22 Timo Mckeon MD [address] [place] [address] PCP - General Family Medicine 11/30/22 11/25/23 David Patton MD [address] [place] [address] PCP - General Internal Medicine 11/26/23 11/29/23 Timo Mckeon MD [address] [place] [phone] PCP - General Family Medicine 12/12/23 Prosper Browne MD #[address] [address] Consulting Physician General Surgery 03/24/21 Sarath Gonsalez MD #[address] [address] Bargeman Cardiovascular Disease - Cardiology 08/11/21 01/30/24 Ally Caraballo MD [address] [place] [address] Consulting Physician Sleep Medicine 08/05/22 [place] [address] [place] [address] Consulting Physician Otolaryngology 08/05/22 Santiago Dasilva MD [address] [place] [address] [address] [place] [address] Consulting Physician Pulmonary Disease 08/05/22 Yusef Carias MD [address] [place] [address] Consulting Physician Pain Medicine-Pain Management 09/22/22 Viraj Luna MD [address] [place] [address] [address] [place] [address] Consulting Physician Gastroenterology 10/08/22 Karen Rodriguez APRN, ADVANCED PRACTICE REGISTERED NURSE #[address] [facility], [address] [place] [address] Nurse Practitioner Advanced Practice Nurse 04/20/23 Deborah Clark, RN [place] Nurse Navigator 11/24/23 11/26/23 Dk Friedman APRN, TRAVEL OCCUPATIONAL THERAPIST [address] [place] [address] Virtual Advanced Care (VAC) OIL FURNACE INSTALLER Advanced Practice Nurse 11/26/23 11/30/23 documented as of this encounter
--- OUTSIDE RECORDS SUMMARY | 2024-04-15 14:14 | XMS_ITS | Encounter Summary ---
Author Organization [facility] Healthcare Address [address] [place] [address] Care Team Providers Care Wind Turbine Engineer Name Role Phone Juancho Luciano MD Primary Care Provider Miguel Worrell MD Primary Care Provider [phone] Juancho Luciano MD Unavailable [phone] Saira Mcintosh PT Unavailable Unavailable Saira Mcintosh PT Unavailable Unavailable David Patton MD Primary Care Provider + Timo Mckeon MD Primary Care Provider [phone] Encounter Details Date Type Department Care Team (Late st Contact Info) Description 05/16/2020 Telephone [facility] [address] [place] [address] Transcribed Order, Provider Social History Tobacco Use Types Packs/Day Years Used Date Smoking Tobacco: Every Day Cigarettes 0.5 100 Started: 1970 Smokeless Tobacco: Never Comments:used to smoke 3pk/d ay for 25-30 years Alcohol Use Standard Drinks/Week Comments Not Currently 0 (1 standard drink = 0.6 oz pur e alcohol) PHQ-2 Answer Date Recorded PHQ-2 Total Score (If total score is 3 or more points, staff should administer the PHQ-9) 2 04/17/2020 Comments No Sex and Gender Information Value Date Recorded Sex Assigned at Not on file Legal Sex Female 1:00 AM [employer] Gender Identity Not on file Sexual Orientation Not on file documented as of this encounter Plan of Treatment Not on file documented as of this encounter Visit Diagnoses Not on filedocumented in this encounter Additional Health Concerns Infection Onset Date Last Indicated Resolved Time COVID: Suspected 07/13/2020 07/13/2020 07/13/2020 9:32 AM CDT documented as of this encounter Care Teams Wind Turbine Engineer Relationship Specialty Start Date End Date Juancho Luciano MD PCP - General Family Medicine 02/27/20 03/21/21 Miguel Worrell MD [address] [address] PCP - General 03/22/21 07/30/22 David Patton MD [address] [place] [address] PCP - General Internal Medicine 07/31/22 12/15/23 Timo Mckeon MD [address] [place] [address] PCP - General Family Practice 12/16/23 Juancho Luciano MD Referring Physician Family Medicine 06/30/21 Saira Mcintosh, PT Physical Therapist Physical Therapy 07/01/21 Saira Mcintosh, PT Physical Therapist Physical Therapy 07/01/21 07/01/21 documented as of this encounter
--- OUTSIDE RECORDS SUMMARY | 2024-04-15 14:14 | XMS_ITS | Clinical Summary ---
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 examination. Improved presumed small amount of fluid within the left middle ear is well. Prior right mastoidectomy. Increased moderate mucosal thickening within the left ethmoid sinuses. Increased now complete opacification of the left sphenoid sinus. Increased mild mucosal thickening within the right sphenoid sinus. ORBITS: No significant abnormality. OTHER: No other significant abnormality. THIS IS AN ELECTRONICALLY VERIFIED FINAL REPORT 03/01/2024 8:42 AM - Electronically signed by Valerio Delacruz M.D. AG: ALLI Report ID: [id number] Reading Location: [id number] Procedure Note Valerio Delacruz MD - 03/01/2024 EXAM DESCRIPTION: CT HEAD OR BRAIN WO CONTRAST REASON FOR STUDY: C/o headache and left ear pain worsening x one day TECHNIQUE: Axial images acquired through the brain without intravenous contrast. Images stored on PACS. Automated exposure control was used as a dose optimization technique for this examination. COMPARISON: 12/18/2023 FINDINGS: BRAIN: No gross intraparenchymal hemorrhage, mass or edema. Moderate periventricular white matter hypoattenuation, likely chronic small vessel ischemic disease. No hydrocephalus is seen. EXTRA-AXIAL SPACES: Anterior frontal atrophy similar compared to the prior examination without evidence of acute subdural hematoma. CALVARIUM: No fracture. SINUSES/MASTOIDS: Improved left mastoid effusion compared to the prior examination. Improved presumed small amount of fluid within the left middle ear is well. Prior right mastoidectomy. Increased moderate mucosal thickening within the left ethmoid sinuses. Increased now complete opacification of the left sphenoid sinus. Increased mild mucosal thickening within the right sphenoid sinus. ORBITS: No significant abnormality. OTHER: No other significant abnormality. THIS IS AN ELECTRONICALLY VERIFIED FINAL REPORT 03/01/2024 8:42 AM - Electronically signed by Valerio Delacruz M.D. AG: ALLI Report ID: [id number] Reading Location: [id number] IMPRESSION: 1. Slight increase in significant left ethmoid and sphenoid paranasal sinus disease. Recommend correlation with symptoms of sinusitis. 2. Improved left mastoid and left middle ear effusions compared to 12/18/2023. Recommend correlation with history of otomastoiditis. 3. No gross acute intracranial abnormality. Dk Kaufman MD IM CT ORDERABLES Final Re sult * CT CHEST W/O CONTRAST (11/07/2021 10:00 AM CDT) Anatomical Region Laterality Modality Chest N/A Computed Tomogra phy 11/07/2021 10:4 9 AM CDT Impressions 11/07/2021 10:52 AM CDT IMPRESSION: 1. Residual scarring changes and atelectasis in the left lung base, most likely sequela of prior episode of pneumonia. There is no upstream bronchial obstruction to suggest a postobstructive process. No definite acute pneumonia. 2. 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 If this is a known entity no further follow-up is needed. Otherwise follow-up with cardiology and ECHO if clinically indicated. Narrative 11/07/2021 10:52 AM CDT EXAM DESCRIPTION: CT CHEST W/O CONTRAST REASON FOR STUDY: Persistent pneumonia TECHNIQUE: CT scan of the chest performed without intravenous contrast using helical scanning technique. Reconstructed coronal and sagittal MPR images reviewed. All images stored on PACS. Automated exposure control was used as a dose optimization technique for this examination. COMPARISON: Chest radiograph from 11/07/2021 and 10/15/[address] from 10/11/2021 FINDINGS: The sensitivity for detection of solid visceral lesions is diminished without the use of intravenous contrast. LUNGS: Previously seen consolidation in the left lower lobe has predominantly resolved however there are linear bands, scarring changes and linear atelectasis extending to the pleural surface in this location there are some residual ground-glass opacities in this area. This is most likely sequela of the most recent episode of pneumonia there are no bronchial lesions upstream from this area. No pulmonary nodules. The trachea has no lesions. PLEURA: No effusion. No pneumothorax. MEDIASTINUM/PATRICIA: No identified masses or abnormal nodes. HEART: Cardiomegaly and lipomatous hypertrophy of the interatrial septum is again noted. There is a fatty mass in the right atrium that does project into the IVC partially as seen on axial image 73 and sagittal image 73 confirmed on the prior study. VASCULATURE: No thoracic aortic aneurysm. AXILLA: No adenopathy. CHEST WALL: No masses. No subcutaneous air. HARDWARE/LINES/TUBES: None. UPPER ABDOMEN: No significant abnormality. MUSCULOSKELETAL: No significant abnormality. OTHER: No other significant abnormality. THIS IS AN ELECTRONICALLY VERIFIED FINAL REPORT 11/07/2021 10:49 AM - Electronically signed by Percy Bishop M.D. JU: JU Report ID: [id number] Reading Location: [id number] Procedure Note Percy Bishop MD - 11/07/2021 EXAM DESCRIPTION: CT CHEST W/O CONTRAST REASON FOR STUDY: Persistent pneumonia TECHNIQUE: CT scan of the chest performed without intravenous contrast using helical scanning technique. Reconstructed coronal and sagittal MPR images reviewed. All images stored on PACS. Automated exposure control was used as a dose optimization technique for this examination. COMPARISON: Chest radiograph from 11/07/2021 and 10/15/[address] from 10/11/2021 FINDINGS: The sensitivity for detection of solid visceral lesions is diminished without the use of intravenous contrast. LUNGS: Previously seen consolidation in the left lower lobe has predominantly resolved however there are linear bands, scarring changes and linear atelectasis extending to the pleural surface in this location there are some residual ground-glass opacities in this area. This is most likely sequela of the most recent episode of pneumonia there are no bronchial lesions upstream from this area. No pulmonary nodules. The trachea has no lesions. PLEURA: No effusion. No pneumothorax. MEDIASTINUM/PATRICIA: No identified masses or abnormal nodes. HEART: Cardiomegaly and lipomatous hypertrophy of the interatrial septum is again noted. There is a fatty mass in the right atrium that does project into the IVC partially as seen on axial image 73 and sagittal image 73 confirmed on the prior study. VASCULATURE: No thoracic aortic aneurysm. AXILLA: No adenopathy. CHEST WALL: No masses. No subcutaneous air. HARDWARE/LINES/TUBES: None. UPPER ABDOMEN: No significant abnormality. MUSCULOSKELETAL: No significant abnormality. OTHER: No other significant abnormality. THIS IS AN ELECTRONICALLY VERIFIED FINAL REPORT 11/07/2021 10:49 AM - Electronically signed by Percy DODD: JU Report ID: [id number] Reading Location: [id number] IMPRESSION: 1. Residual scarring changes and atelectasis in the left lung base, most likely sequela of prior episode of pneumonia. There is no upstream bronchial obstruction to suggest a postobstructive process. No definite acute pneumonia. 2. 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 If this is a known entity no further follow-up is needed. Otherwise follow-up with cardiology and ECHO if clinically indicated. Hallie Cannon MD IMG CT ORDERABLES Final Result * INA DIAG BILATERAL DIGITAL W CAD W RADHA (05/01/2021 12:00 AM GLASS ETCHER HELPER) Anatomical Region Laterality Modality breast Bilateral Mammography 05/01/2021 Miguel Worrell MD G MAMMO ORDERABLES Final Resul t from Last 3 Months or Most Recently Relevant to Health Maintenance Insurance [place] [address] MEDICARE Advance Directives * Full Code (Latest Code Status on File) Date Activated Date Inactivated Comments 01/07/2024 10:13 PM CPR-Full Carlos atment: FULL ARREST: Attempt Resuscitation/CPR wit intubation and mechanical ventilation. PRE-ARREST: Use entire range of life support measures to stabilize the patient. * Full Code Date Activated Date Inactivated Comments 09/08/2023 3:56 PM 09/09/2023 4:37 PM CPR-Full Carlos atment: FULL ARREST: Attempt Resuscitation/CPR wit intubation and mechanical ventilation. PRE-ARREST: Use entire range of life support measures to stabilize the patient. * Full Code Date Activated Date Inactivated Comments 10/15/2021 8:37 AM 10/16/2021 6:40 PM CPR-Full Carlos atment: FULL ARREST: Attempt Resuscitation/CPR wit intubation and mechanical ventilation. PRE-ARREST: Use entire range of life support measures to stabilize the patient. * Full Code Date Activated Date Inactivated Comments 10/11/2021 7:41 PM 10/12/2021 4:20 PM CPR-Full Carlos atment: FULL ARREST: Attempt Resuscitation/CPR wit intubation and mechanical ventilation. PRE-ARREST: Use entire range of life support measures to stabilize the patient. * No CPR-Selective Treatment Date Activated Date Inactivated Comments 02/28/2021 11:39 PM 03/01/2021 4:49 PM No CPR - Mi ctive Treatment: FULL ARREST: Do Not Attempt Resuscitation. PRE-ARREST: DO NOT USE INTUBATION OR MECHANICAL VENTILATION, but may use basic medical treatment like CPAP or BiPAP, antibiotics, IV fluids, oxygen, etc. Avoid care in ICU setting. Question Answer Comments Physician documentation made in notes? Yes Care Teams Proofreader Relationship Specialty Start Date End Date Timo Mckeon MD [address]2 [facility], [address] [place] [address] PCP - General Family Medicine 12/12/23 Prosper Browne MD [address]2 [facility] [address] [place] [address] Consulting Physician General Surgery 03/24/21 Ally Caraballo MD [address] [facility] [address] [place] [phone] Consulting Physician Sleep Medicine 08/05/22 [place] [address] [place] [address] Consulting Physician Otolaryngology 08/05/22 Santiago Dasilva MD [address] [place] [address] [address] [place] [address] Consulting Physician Pulmonary Disease 08/05/22 Yusef Carias MD [address] [place] [address] Consulting Physician Pain Medicine-Pain Management 09/22/22 Viraj Luna MD [address] [place] [address] [address] [place] [address] Consulting Physician Gastroenterology 10/08/22 Karen Rodriguez APRN, ACADEMIC PHYSICIAN [address] [facility], [address] [place] [address] Nurse Practitioner Advanced Practice Nurse 04/20/23
--- OUTSIDE RECORDS SUMMARY | 2024-04-15 14:15 | XMS_ITS | Encounter Summary ---
Author Organization [facility] Address [address] [place] [address] Phone Care Team Providers Care Hotel Staff Member Name Role Phone Miguel Worrell MD Primary Care Provider [phone] Prosper Browne MD Unavailable [phone] Sarath Gonsalez MD Unavailable [facility] David Eller MD Primary Care Provider [phone] Ally Caraballo MD Unavailable Jojo Skinner MD Unavailable [phone] Santiago Dasilva MD Unavailable [phone] Yusef Carias MD Unavailable + [phone] Viraj Luna MD Unavailable [phone] Timo Mckeon MD Primary Care Provider [phone] Karen Rodriguez APRN, RECORD KEEPER Unavailable + [phone] Deborah Clark RN Unavailable UnavailDk Mendez APRN, SCARF GLUER Unavailable [phone] David Patton MD Primary Care Provider [phone] Timo Mckeon MD Primary Care Provider [phone] Reason for Visit * Reason Comments Medication Refill Encounter Details Date Type Department Care Team (Late st Contact Info) Description 08/22/2021 Refill [facility] - Family [facility] [address] [place] [id number] Miguel Worrell MD [address] [place] [address] Medication Refill Social History Tobacco Use Types [...] Date Recorded Total Score - Questions 1-9 0 04/0 06/2021 Comments No Sex and Gender Information Value [...] suspected to have Coronavirus/COVID-19? No / Unsure 08/19/2021 3:10 PM CDT documented as of this encounter Miscellaneous Notes * Telephone Encounter - Nakita Christine RN - 08/22/2021 3:14 PM CDT PDMP 07/25/21 Medication failed the protocol, provider to review and approve the medication order if appropriate. Requested Prescriptions Pending Prescriptions Disp Refills clonazePAM (KlonoPIN) 0.5 MG Tablet [Pharmacy Med Name: CLONAZEPAM 0.5MG TABLET] 60 Tablet 0 Sig: TAKE ONE (1) TABLET BY MOUTH TWICE DAILY Not Delegated - Clonazepam Protocol Failed - 08/22/2021 2:58 PM Failed - This refill cannot be delegated Passed - Visit with relevant provider in past 12 months or upcoming 90 days Recent Visits Date Type Provider Dept 07/15/21 Office Visit Miguel Worrell MD [facility] 07/08/[address] [facility]N, [facility] [place] 05/27/[address] APRN, [facility] [place] 03/18/21 Office Visit Miguel Worrell MD [facility] 03/10/21 Office Visit Miguel Worrell, [place] [facility] [place] Showing recent visits within past 365 days and meeting all other requirements Future Appointments Date Type Provider Dept 08/26/21 Appointment Miguel Worrell MD [facility] 11/18/21 Appointment Miguel Worrell MD [facility] Showing future appointments within next 90 days and meeting all other requirements documented in this encounter Plan of Treatment Upcoming Encounters Date Type Department Care Team (Late st Contact Info) Description 04/17/2024 9:00 AM DIRECTOR WOMEN [facility] [address] [place] [address] Stanislav Maya, ALYSSA MA 07/04/2024 10:30 AM CDT Office Visit [facility] - [place] [address] [place] [address] Karen Rodriguez APRN, RECORD KEEPER #2 [facility], [address] [place] [address] documented as of this encounter Visit Diagnoses Diagnosis Generalized anxiety disorder documented in this encounter Additional Health Concerns Infection Onset Date Last Indicated Resolved Time COVID - 19 10/11/2021 10/11/2021 10/16/2021 8:04 AM CDT COVID - 19 12/11/2021 12/11/2021 12/21/2021 12:1 6 AM CDT COVID - 19 11/17/2023 11/17/2023 11/17/2023 7:31 PM CDT COVID - 19 12/18/2023 12/18/202312/1712/18/2023 1:39 PM CDT COVID - 19 Confirmed 12/18/2023 12/18/2023 024 12:17 AM DIRECTOR WOMEN documented as of this encounter Care Teams Hotel Staff Member Relationship Specialty Start Date End Date Miguel Worrell MD PCP - General Family Medicine 03/03/21 08/04/22 David Patton MD [address] [place] [address] PCP - General Internal Medicine 08/05/22 11/29/22 Timo Mckeon MD [address] [place] [address] PCP - General Family Medicine 11/30/22 11/25/23 David Patton MD [address] [place] [address] PCP - General Internal Medicine 11/26/23 11/29/23 Timo Mckeon MD [address] [place] [phone] PCP - General Family Medicine 12/12/23 Prosper Browne MD #[address] [phone] Consulting Physician General Surgery 03/24/21 Sarath Gonsalez MD #[address] [address] Industrial Engineer Cardiovascular Disease - Cardiology 08/11/21 01/30/24 Ally Caraballo MD [address] [place] [address] Consulting Physician Sleep Medicine 08/05/22 [place] [address] [place] [address] Consulting Physician Otolaryngology 08/05/22 Santiago Dasilva MD [address] [facility] [address] [place] [address] Consulting Physician Pulmonary Disease 08/05/22 Yusef Carias MD [address] [place] [address] Consulting Physician Pain Medicine-Pain Management 09/22/22 Viraj Luna MD [address] [facility] [address] [place] [address] Consulting Physician Gastroenterology 10/08/22 Karen Rodriguez APRN, RECORD KEEPER [facility], [address] [place] [address] Nurse Practitioner Advanced Practice Nurse 04/20/23 Deborah Clark RN [place] Nurse Navigator 11/24/23 11/26/23 Dk Friedman APRN, SCARF GLUER [address] [place] [address] [facility] ([facility]) SMALL KICK PRESS OPERATOR Advanced Practice Nurse 11/26/23 11/30/23 documented as of this encounter
--- OUTSIDE RECORDS SUMMARY | 2024-04-15 14:15 | XMS_ITS | Clinical Summary ---
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 Chronic left ear infection for more then one year with headache TECHNIQUE: Noncontrast thin section axial images through the temporalbones and skull base were obtained and reviewed at bone windows and bonealgorithm with coronal. Automated exposure control was used as a dose optimization technique for this examination. COMPARISON: CTA head and neck from 02/28/2021. FINDINGS: RIGHT SIDE: EXTERNAL AUDITORY CANAL: Postoperative changes of canal wall down mastoidectomy evident. TYMPANIC MEMBRANE: There is possibly a tympanostomy tube in place. The tympanic membrane appears thickened and medially displaced. There ispossibly a. myringostapediopexy although the stapes is not completely visualized. Please correlate with past surgical history. Please correlate withclinical exam findings OSSICLES: The ossicular chain is not clearly identified. There ispossibly postop change of myringostapediopexy with possible faint visualization of stapes at oval window. Please correlate with past surgical history. MIDDLE EAR, EPITYMPANUM and HYPOTYMPANUM: The right middle ear cavity is small in capacity. There is abnormal soft tissue along the hypo tympanum. Mild soft tissue thickening along the osseous margins of the epi tympanumbut no definite bone erosion. INNER EAR STRUCTURES: Normal vestibule and cochlea. Normal aqueducts. Normal semicircular canals. INTERNAL AUDITORY CANAL: Normal bony canal without narrowing orwidening. No calcified or ossified masses. TEMPOROMANDIBULAR JOINT: Normal. MASTOID AIR CELLS: Findings canal wall-down modified radicalmastoidectomy.. LEFT SIDE: EXTERNAL AUDITORY CANAL: Left external canal is patent however there are couple of nodular areas of soft tissue thickening along the posterior wall which are nonspecific. Correlation with clinical exam findings issuggested. TYMPANIC MEMBRANE: The left tympanic membrane is difficult todistinguish from the diffuse soft tissue opacification of the middle ear cavity. OSSICLES: The ossicular chain is completely surrounded by abnormal soft tissue. Within limitation, no definitive ossicular erosion isidentified... MIDDLE EAR, EPITYMPANUM and HYPOTYMPANUM: Diffuse non dependentappearing abnormal soft tissue opacifies the meso and hypotympanum and the a portionof the epi tympanum-attic. INNER EAR STRUCTURES: Normal vestibule and cochlea. Normal aqueducts.The bone covering of the superior semicircular canal appears thin but nodefinite dehiscence is identified. Please correlate with clinical factors. Innerear structures otherwise are normal.. INTERNAL AUDITORY CANAL: Normal bony canal without narrowing orwidening. No calcified or ossified masses. TEMPOROMANDIBULAR JOINT: Normal. MASTOID AIR CELLS: The majority of the left-sided mastoid air cells are opacified. The mastoid antrum and aditus are partly aerated. Nocoalescence or bone erosion. CENTRAL SKULL BASE: Normal foramina. No lytic or blastic lesions.There is thickening of soft tissue at the level of nasopharynx suggesting adenoid tissue prominence but this areas incompletely evaluated. INFERIOR BRAIN: Limited view. No acute findings. LIMITED VIEW OF PARANASAL SINUSES IN THE FIELD OF VIEW: There isthickening of the marin of the left sphenoid sinus in keeping with longstanding sinusitis. The left sphenoid sinuses opacified. The sphenoid ostia is obstructed by mucus throughout posterior ethmoid air cells but appears somewhat widened. There is lobular mucosal thickening throughout theright sphenoid sinus with obstruction of the sphenoid ostium. The ethmoid aircells are opacified left greater than right. Frontal sinuses are normallyaerated. OTHER: No other significant finding. IMPRESSION: Right-sided canal wall down mastoidectomy. Nonvisualization of the right ossicular chain with possible myringostapediopexy. Please correlate withpast surgical history. Small right middle ear cavity with abnormal soft tissue along the hypo tympanum. Mild soft tissue thickening along the osseous margins of the epi tympanum but no definite bone erosion. Diffuse non dependent soft tissue throughout the majority of the leftmiddle ear cavity surrounding the ossicular chain with additional non dependent fluid-soft tissue opacification of left-sided mastoid air cells. Nodefinite ossicular or mastoid erosion. Findings could indicate chronic granulation related to infection or non erosive cholesteatoma. Please correlate with clinical exam findings. Nodular soft tissue thickening along the posterior wall of the left external canal. Please correlate with clinical examfindings. Incidental thinning of the bone covering of the left superiorsemicircular canal but no definite dehiscence. Please correlate with clinicalfactors. Findings of longstanding chronic sinusitis with osseous thickening andsoft tissue opacification of the left sphenoid sinus with completeopacification of the left sphenoid sinus with opacification of the left-sided ethmoid aircells. Thickening of soft tissue at the level of the nasopharynx suggestingadenoid tissue prominence but incompletely evaluated. Please correlate withclinical exam findings. THIS IS AN ELECTRONICALLY VERIFIED FINAL REPORT 03/06/2024 11:00 PM - Electronically signed by Makenzie Cooper M.D. LC: MARGARET Report ID: [id number] Reading Location: [id number] Toya Ojeda NP IMG CT PROCEDURES Final Result * [employer] Results (02/09/2024 7:47 AM [employer]) us Provider Scanning AUDIOLOGY SERVICES ORDERABLES Final Result * CT Lung Cancer Screening (09/04/2021 7:58 AM CDT) Anatomical Region Laterality Modality Chest N/A Computed Tomogra phy 09/04/2021 1:12 PM CDT Narrative 09/04/2021 1:18 PM CDT EXAM DESCRIPTION: CT LUNG CANCER SCREENING REASON FOR STUDY: Screening CT of the chest in a current smoker with a 52 pack year smoking history. Additional history: COPD, asthma, emphysema, hypertension, CHF, CAD, diabetes mellitus. TECHNIQUE: Low dose CT scan of the chest was performed without intravenous contrast using helical scanning technique. The exam extends from the lung apices through the lung bases. Automatic exposure control was used as a dose optimization technique. NOTE: This study was performed for the specific purposes of lung cancer screening and is not an alternative to diagnostic chest CT. RADIATION DOSE: CT dose index volume (CTDIvol) = 1.76 mGy COMPARISON: None available. FINDINGS: SMOKING RELATED LUNG DISEASE: Mild emphysema. LUNG NODULES: 2 mm peripheral nodule in the lateral left upper lobe (series 3, image 59). OTHER: Heart size is mildly enlarged without pericardial effusion. Lipomatous hypertrophy of the interatrial septum is noted. Mild atherosclerotic calcification seen in the right coronary artery distribution. No intrathoracic, axillary or supraclavicular lymphadenopathy. Mild scattered linear scarring versus atelectasis is noted in the bilateral lower lobes, right middle lobe and lingula. No confluent consolidation, pleural effusion or pneumothorax. A 2.9 cm cystic lesion arising from the posterior upper pole of the left kidney is suboptimally evaluated by this exam protocol using low-dose technique, statistically a cyst. Bone window images demonstrate mild degenerative endplate changes of the spine with small anterior osteophytes. No suspicious osseous lesions or acute fractures. IMPRESSION: 1. Mild emphysema. 2. 2 mm left upper lobe nodule. Lung-RADS v1.1 category 2: Benign appearance or behavior. Recommendation: Continue annual screening low-dose chest CT in 12 months. THIS IS AN ELECTRONICALLY VERIFIED FINAL REPORT 09/04/2021 1:18 PM - Electronically signed by Grey Mandel M.D. ML: ML Report ID: [id number] Reading Location: [place] [id number] Procedure Note Grey Mandel MD - 09/04/2021 EXAM DESCRIPTION: CT LUNG CANCER SCREENING REASON FOR STUDY: Screening CT of the chest in a current smoker with a52 pack year smoking history. Additional history: COPD, asthma, emphysema, hypertension, CHF, CAD, diabetes mellitus. TECHNIQUE: Low dose CT scan of the chest was performed without intravenous contrast using helical scanning technique. The exam extends from the lung apices through the lung bases. Automatic exposure control was used as adose optimization technique. NOTE: This study was performed for the specific purposes of lung cancer screening and is not an alternative to diagnostic chest CT. RADIATION DOSE: CT dose index volume (CTDIvol) = 1.76 mGy COMPARISON: None available. FINDINGS: SMOKING RELATED LUNG DISEASE: Mild emphysema. LUNG NODULES: 2 mm peripheral nodule in the lateral left upper lobe(series 3, image 59). OTHER: Heart size is mildly enlarged without pericardial effusion. Lipomatous hypertrophy of the interatrial septum is noted. Mild atherosclerotic calcification seen in the right coronary arterydistribution. No intrathoracic, axillary or supraclavicular lymphadenopathy. Mildscattered linear scarring versus atelectasis is noted in the bilateral lower lobes, right middle lobe and lingula. No confluent consolidation, pleuraleffusion or pneumothorax. A 2.9 cm cystic lesion arising from the posterior upperpole of the left kidney is suboptimally evaluated by this exam protocol using low-dose technique, statistically a cyst. Bone window images demonstratemild degenerative endplate changes of the spine with small anteriorosteophytes. No suspicious osseous lesions or acute fractures. IMPRESSION: 1. Mild emphysema. 2. 2 mm left upper lobe nodule. Lung-RADS v1.1 category 2: Benign appearance or behavior. Recommendation: Continue annual screening low-dose chest CT in 12 months. THIS IS AN ELECTRONICALLY VERIFIED FINAL REPORT 09/04/2021 1:18 PM - Electronically signed by Grey Mandel M.D. ML: ML Report ID: [id number] Reading Location: [id number] Santiago Dasilva MD IMG CT PROCEDURES Final Result * Diagnostic Mammogram Bilateral W Daniel (05/01/2021 11:42 AM [employer]) Anatomical Region Laterality Modality Breast Bilateral Mammography 05/01/2021 12:3 4 PM [employer] Impressions 05/01/2021 12:34 PM [employer] 1. Benign bilateral intramammary lymph nodes and benign simple cyst in the left breast, corresponding to the findings described on screening mammography. 2. No mammographic or sonographic evidence of malignancy in the bilateral breasts. Routine screening mammography is recommended in 1 year. BI-RADS: 2 - Benign. I discussed the findings and impression with the patient at the time of the examination. Electronically signed by: Uziel Gaytan M.D. Narrative 05/01/2021 12:34 PM [employer] EXAMINATION: DIAGNOSTIC MAMMOGRAM BILATERAL W DANIEL, US BREAST BILATERAL LIMITED ORDERING HEALTHCARE PROVIDER: REYNA WORRELL HISTORY: 61-year-old female recalled from baseline screening mammography for bilateral breast masses. COMPARISON: Mammography from 03/22/2021. TECHNIQUE: Spot compression CC, spot compression MLO, and ML views of the bilateral breasts were obtained with digital technique using breast tomosynthesis with C view. Computer aided detection was utilized. Multiple ultrasound images of the bilateral breasts were obtained. FINDINGS: MAMMOGRAPHIC FINDINGS DENSITY: There are scattered fibroglandular elements in the bilateral breasts. BREASTS: There is a 7 mm oval, circumscribed mass in the right breast at the 9 o'clock position, middle to posterior depth. There is a prominent right axillary lymph node measuring 2.0 cm, corresponding to the finding described on screening mammography. There is a 4 mm oval, circumscribed mass in the left breast at the 10 o'clock position, middle to posterior depth. There are are two masses in the left breast at the 3 o'clock position, middle to posterior depth which appear to contain fatty vicki and likely represent intramammary lymph nodes. These masses measure 8 mm and 5 mm, respectively. There are no other suspicious findings in either breast. ULTRASOUND FINDINGS Targeted ultrasound of the right breast at the 9 o'clock position, 10 cm from the nipple demonstrates a 0.7 x 0.9 x 0.5 cm morphologically benign intramammary lymph node with a thin cortex and large echogenic hilum. This corresponds the mass described on mammography. Targeted ultrasound of the right axilla demonstrates a 2.1 x 0.6 x 0.2 cm morphologically benign axillary lymph node with a thin cortex and large echogenic hilum, corresponding to the lymph node described on mammography. Targeted ultrasound of the left breast at the 3 o'clock position, 12 cm from the nipple demonstrates a 0.5 x 0.4 x 0.3 cm morphologically benign intramammary lymph node with a thin cortex and large echogenic hilum. This corresponds the mass described on mammography. Targeted ultrasound of the left breast at the 3 o'clock position, 10 cm from the nipple demonstrates a 0.7 x 0.5 x 0.6 cm morphologically benign intramammary lymph node with a thin cortex and large echogenic hilum. This corresponds the mass described on mammography. Targeted ultrasound of the left breast at the 10 o'clock position, 19 from the nipple demonstrates a 0.4 x 0.3 x 0.4 cm oval, circumscribed, anechoic benign simple cyst with posterior acoustic enhancement and no evidence of internal blood flow on color Doppler imaging. This corresponds to the mass described on mammography. us Reyna Worrell MD IMG MAMMO PROCEDURES Final Resul t * Hepatitis C (HCV) RNA PCR, quantitative (04/14/2021 1:50 PM [employer]) HCV RNA result Not Detected ERIBERTO CAROL TRIVEDI (MANUEL) Comment: The quantifiable range of this assay is 15 IU/mL to 100,000,000 IU/mL (1.18 log IU/mL to 8.00 log IU/mL). Testing was performed by the [facility]AMRA 6800 HCV Test ([employer] Testing performed at [facility] Current Interpretive Data was last revised on 2020 Testing performed by: [facility], [address] [place]., [address] Blood 04/14/2021 1:50 PM [employer] 04/14/2021 7:50 PM [employer] us Viraj Luna MD LAB MICROBIOLOGY - GENERAL ORDERABLES Final Result PASTOR TRIVEDI (GARRISON) [address] [facility] Department of Laboratories [place] [id number] * COLONOSCOPY (05/22/2020 12:34 PM CDT) Anatomical Region Laterality Modality Other Narrative Procedure Note Viraj Luna MD - 05/22/2020 12:34 PM CDT [facility] Patient Name: Jolanta Bruner Procedure Date: 05/22/2020 12:34 PM Date of : 1960 Admit Type: Outpatient Age: 60 Gender: Female Attending MD: Viraj Luna M.D. Room: [facility] RO[facility] 1 Note Status: Finalized Patient Profile: This is a 60 year old female. Last colonoscopy was more than 10 years ago. Procedure: Colonoscopy Indications: Screening for colorectal malignant neoplasm, Last colonoscopy: date unknown Referring MD: Juancho Luciano M.D. Providers: Viraj Luna M.D. Impression: - Mild diverticulosis in the entire examinedcolon. - The entire examined colon is normal. - One 4 mm polyp in the rectum, removed with ajumbo cold forceps. Resected and retrieved. - Internal hemorrhoids. Recommendation: - Await pathology results. - Repeat colonoscopy in 5 years for screeningpurposes. - Continue present medications. Medicines: Monitored Anesthesia Care Complications: No immediate complications. Estimated Blood Loss: Estimated blood loss: none. Procedure: Pre-Anesthesia Assessment: - Prior to the procedure, a History and Physicalwas performed, and patient medications and allergieswere reviewed. The patient's tolerance of previous anesthesia was also reviewed. The risks andbenefits of the procedure and the sedation options and risks were discussed with the patient. All questions were answered, and informed consent was obtained. Prior Anticoagulants: The patient has taken no previous anticoagulant or antiplatelet agents. ASA Grade Assessment: III - A patient with severe systemic disease. After reviewing the risks and benefits,the patient was deemed in satisfactory condition to undergo the procedure. The benefits, risks and alternatives of theprocedure and sedation were discussed and informed consentwas obtained. All questions were answered. Please referto the signed informed consent document in the medical record. The scope was passed under direct vision.The Pediatric Colonoscope PCF-H190L [id number] was introduced through the anus and advanced to the the cecum, identified by appendiceal orifice andileocecal valve. The bowel preparation used was Miralax via split dose instruction. The bowel preparation usedwas bisacodyl tablets via split dose instruction. The quality of the bowel preparation was good. Bowelprep was administered using a split dose. Findings: The perianal and digital rectal examinations were normal. The cecum appeared normal. Scattered small-mouthed diverticula were found in the entire colon.No inflammatory changes noted. The colon (entire examined portion) appeared normal otherwise. A 4 mm polyp was found in the rectum. The polyp was sessile. Thepolyp was removed with a jumbo cold forceps. Resection and retrieval were complete. Internal hemorrhoids were found during retroflexion. The hemorrhoids were small. Electronically signed by Viraj Luna M.D. Viraj Luna M.D. 05/22/2020 1:09:56 PM Number of Addenda: 0 Note Initiated On: 05/22/2020 12:34 PM Procedure Code(s): --- Professional --- 84147, Colonoscopy, flexible; with biopsy, single or multiple Diagnosis Code(s): --- Professional --- Z12.11, Encounter for screening for malignant neoplasm of colon K64.8, Other hemorrhoids K62.1, Rectal polyp K57.30, Diverticulosis of large intestine without perforation orabscess without bleeding CPT copyright 2019 [employer]. All rights reserved. The codes documented in this report are preliminary and upon forensic anthropologist reviewmay be revised to meet current compliance requirements. Recognized by the [place] [employer] for promoting quality in endoscopy Viraj Luna MD ENDOSCOPY PROCEDURES Final Result from Last 3 Months or Most Recently Relevant to Health Maintenance Insurance [facility] MEDICARE MEDICARE IDPA Advance Directives For more information, please contact: [phone] * Full Code (Latest Code Status on File) Date Activated Date Inactivated Comments 05/14/2021 7:52 AM 05/14/2021 2:02 PM * Full Code Date Activated Date Inactivated Comments 05/22/2020 11:08 AM 05/22/2020 5:50 PM * Full Code Date Activated Date Inactivated Comments 05/22/2020 11:08 AM 05/22/2020 11:08 AM * Full Code Date Activated Date Inactivated Comments 04/26/2020 7:45 AM 04/26/2020 2:47 PM Care Teams Enrollment Nurse Relationship Specialty Start Date End Date Timo Mckeon MD PCP - General Family Practice 12/16/23 Juancho Luciano MD Referring Physician Family Medicine 06/30/21 Saira Mcintosh PT Physical Therapist Physical Therapy 07/01/21
--- OUTSIDE RECORDS SUMMARY | 2024-04-15 14:15 | XMS_ITS | Encounter Summary ---
Author Organization [facility] Address [address] [place] [address] Phone Care Team Providers Care It Network Engineer Name Role Phone Miguel Worrell MD Primary Care Provider [phone] Prosper Browne MD Unavailable [phone] Sarath Gonsalez MD [facility]available [facility] Davdi Eller MD Primary Care Provider [phone] Ally Caraballo MD Unavailable Jojo Skinner MD Unavailable +[phone] Santiago Dasilva MD Unavailable [phone] Yusef Carias MD Unavailable + [phone] Viraj Luna MD Unavailable +[phone] Timo Mckeon MD Primary Care Provider +[phone] Karen Rodriguez APRN, STRATEGIC SOURCING CONSULTANT Unavailable + [phone] Deborah Clark RN Unavailable UnavailDk Mendez APRN, IT SECURITY ENGINEER Unavailable [phone] David Patton MD Primary Care Provider [phone] Timo Mckeon MD Primary Care Provider [phone] Reason for Visit * Reason Comments Medication Refill Encounter Details Date Type Department Care Team (Late st Contact Info) Description 12/03/2021 Refill [facility] [address] [place] [phone] Miguel Worrell MD #[address] [place] [address] Medication Refill Social History Tobacco Use Types [...] Score - Questions 1-9 0 04/0 06/2021 Sexually Active Control Partners Comments Not Currently [...] suspected to have Coronavirus/COVID-19? No / Unsure 11/18/2021 9:57 AM CDT documented as of this encounter Miscellaneous Notes * Telephone Encounter - Nakita Christine RN - 12/03/2021 3:49 PM CDT Medication failed the protocol, provider to review and approve the medication order if appropriate. Requested Prescriptions Pending Prescriptions Disp Refills cyclobenzaprine (FLEXERIL) 10 MG Tablet [Pharmacy Med Name: CYCLOBENZAPRINE HYDROCHLORIDE 10MG TABLET] 90 Tablet 0 Sig: TAKE ONE (1) TABLET BY MOUTH THREE (3) TIMES DAILY NEEDED FOR MUSCLE SPASMS FOR UP TO 30 DAYS. Not Delegated - Muscle Relaxants Protocol Failed - 12/03/2021 10:09 AM Failed - This refill cannot be delegated Passed - Visit with relevant provider in past 12 months or upcoming 90 days Recent Visits Date Type Provider Dept 11/18/21 Office Visit Miguel Worrell MD [facility] 10/20/21 Office Visit Rosa Guthrie, [facility] 10/07/[address] APRN, STRATEGIC SOURCING CONSULTANT [facility] [place] 07/15/21 Office Visit Miguel Worrell, [facility] 07/08/[address] APRN, МАРИЯ [facility] [place] 05/27/[address] APRN, STRATEGIC SOURCING CONSULTANT [facility] [place] 03/18/21 Office Visit Miguel Worrell, MD [facility] 03/10/21 [facility] Showing recent visits within past 365 days and meeting all other requirements Future Appointments No visits were found meeting these conditions. Showing future appointments within next 90 days and meeting all other requirements documented in this encounter Plan of Treatment Upcoming Encounters Date Type Department Care Team (Late st Contact Info) Description 04/17/2024 9:00 AM CURING OVEN ATTENDANT [facility] [address] [place] [address] Stanislav Maya, RD [place] 07/04/2024 10:30 AM CDT [facility] [place] #2 [place] [address] Karen Rodriguez APRN, STRATEGIC SOURCING CONSULTANT #2 [facility], [facility] [address] [place] [address] documented as of this encounter Visit Diagnoses Not on filedocumented in this encounter Additional Health Concerns Infection Onset Date Last Indicated Resolved Time COVID - 19 12/11/2021 12/11/2021 12/21/2021 12:1 6 AM CDT COVID - 19 11/17/2023 11/17/2023 11/17/2023 7:31 PM CDT COVID - 19 12/18/2023 12/18/2023 12/18/2023 1:39 PM CDT COVID - 19 Confirmed 12/18/2023 12/18/2023 024 12:17 AM CURING OVEN ATTENDANT documented as of this encounter Care Teams It Network Engineer Relationship Specialty Start Date End Date Miguel Worrell MD PCP - General Family Medicine 03/03/21 08/04/22 David Patton MD [address] [place] [address] PCP - General Internal Medicine 08/05/22 11/29/22 Timo Mckeon MD [address] [place] [address] PCP - General Family Medicine 11/30/22 11/25/23 David Patton MD [address] [place] [address] PCP - General Internal Medicine 11/26/23 11/29/23 Timo Mckeon MD [address] [place] [address] PCP - General Family Medicine 12/12/23 Prosper Browne MD #2 [facility] [address] [place] [address] Consulting Physician General Surgery 03/24/21 Sarath Gonsalez MD #2 [facility] [address] [place] [address] Dental Hygiene Professor Cardiovascular Disease - Cardiology 08/11/21 01/30/24 Ally Caraballo MD [address] [place] [address] Consulting Physician Sleep Medicine 08/05/22 [place] [address] [place] [address] Consulting Physician Otolaryngology 08/05/22 Santiago Dasilva MD [address] [place] [address] [address] Consulting Physician Pulmonary Disease 08/05/22 Yusef Carias MD [address] [place] [address] Consulting Physician Pain Medicine-Pain Management 09/22/22 Viraj Luna MD [address] [facility] [address] [place] [address] Consulting Physician Gastroenterology 10/08/22 Karen Rodriguez APRN, STRATEGIC SOURCING CONSULTANT #2 [facility], [address] [place] [address] Nurse Practitioner Advanced Practice Nurse 04/20/23 Deborah Clark RN [place] Nurse Navigator 11/24/23 11/26/23 Dk Friedman APRN, IT SECURITY ENGINEER [address] [place] [id number] Virtual [facility] (VAC) PARTS CLERK Advanced Practice Nurse 11/26/23 11/30/23 documented as of this encounter
--- OUTSIDE RECORDS SUMMARY | 2024-04-15 14:15 | XMS_ITS | Patient Health Summary ---
Author Organization [facility] [employer] Address [address] [facility] [place] [address] Care Team Providers Care Motion Picture Critic Name Role Phone Unavailable Primary Care Provider Unavailabl e Note from [facility],non-owned Affiliates and Associated Physician Practices is amultiple site organization consisting of ambulatory clinics and hospital sitesin [place], [place], [place] and [place]. This disclosure is being madepursuant to the Care Everywhere program and may not contain all information available regarding this patient. Last updated 17.[facility] [employer] Social History Tobacco Use Types Packs/Day Years Used Date Smoking Tobacco: Never Assessed Sex and Gender Information Value Date Recorded Sex Assigned at Not on file Gender Identity Not on file Sexual Orientation Not on file
--- OUTSIDE RECORDS SUMMARY | 2024-04-15 14:15 | XMS_ITS | Encounter Summary ---
Author Organization [facility] Address [address] [place] [address] Phone Care Team Providers Care Cardiac Rn Name Role Phone Miguel Worrell MD Primary Care Provider [phone] Prosper Browne MD Unavailable [phone] Sarath Gonsalez MD [facility]available [facility] David Eller MD Primary Care Provider [phone] Ally Caraballo MD Unavailable Jojo Skinner MD Unavailable +[phone] Santiago Dasilva MD Unavailable [phone] Yusef Carias MD Unavailable + [phone] Viraj Luna MD Unavailable +[phone] Timo Mckeon MD Primary Care Provider [phone] Karen Rodriguez APRN, SUPERINTENDENT REFUSE DISPOSAL Unavailable + [phone] Deborah Clark RN Unavailable UnavailDk Mendez APRN, JAMB CUTTER Unavailable +[phone] David Patton MD Primary Care Provider [phone] Timo Mckeon MD Primary Care Provider [phone] Reason for Visit * Reason Comments Medication Refill Encounter Details Date Type Department Care Team (Late st Contact Info) Description 09/22/2021 Refill [facility] Medicine - [place] [address] [place] [address] APRN, SUPERINTENDENT REFUSE DISPOSAL #[address] [place] [address] [address] Medication Refill Social History Tobacco Use Types [...] suspected to have Coronavirus/COVID-19? No / Unsure 09/25/2021 1:12 PM CDT documented as of this encounter Miscellaneous Notes * Telephone Encounter - Nakita Christine RN - 09/23/2021 8:13 AM CDT Images from the original note were not included. PARoxetine HCl Dispensed Days Supply Quantity Provider Pharmacy PAROXETINE HCL 40MG HCL TAB 08/22/[address] Pharmacy Bet... PAROXETINE HCL 40MG HCL TAB 05/27/[address] Pharmacy Bet... documented in this encounter Plan of Treatment Upcoming Encounters Date Type Department Care Team (Late Contact Info) Description 04/17/2024 9:00 AM ENTRY DRIVER OPERATOR OC[facility] [address] [place] [address] [place] 07/04/2024 10:30 AM CDT Office Visit [facility] - [place] #2 [place] [address] Karen Rodriguez APRN, SUPERINTENDENT REFUSE DISPOSAL #2 [facility], [address] [place] [address] documented as of this encounter Visit Diagnoses [...] 19 Confirmed 12/18/2023 12/18/2023 024 12:17 AM ENTRY DRIVER OPERATOR documented as of this encounter Care Teams Cardiac Rn Relationship Specialty Start Date End Date Miguel Worrell MD PCP - General Family Medicine 03/03/21 08/04/22 David Patton MD [address] [place] [address] PCP - General Internal Medicine 08/05/22 11/29/22 Timo Mckeon MD [address] [place] [address] PCP - General Family Medicine 11/30/22 11/25/23 David Patton MD [address] [place] [address] PCP - General Internal Medicine 11/26/23 11/29/23 Timo Mckeon MD [address] [place] [id number] PCP - General Family Medicine 12/12/23 Prosper Browne MD #[address] [address] Consulting Physician General Surgery 03/24/21 Sarath Gonsalez MD #[address] [address] Termite Treater Cardiovascular Disease - Cardiology 08/11/21 01/30/24 Ally Caraballo MD [address] [place] [address] Consulting Physician Sleep Medicine 08/05/22 [place] [address] [place] [address] Consulting Physician Otolaryngology 08/05/22 Santiago Dasilva MD [address] [place] [address] Consulting Physician Pulmonary Disease 08/05/22 Yusef Carias MD [address] [place] [address] Consulting Physician Pain Medicine-Pain Management 09/22/22 Viraj Luna MD [address] [facility] , [address] [place] [address] Consulting Physician Gastroenterology 10/08/22 Karen Rodriguez APRN, SUPERINTENDENT REFUSE DISPOSAL #2 [facility], [address] [place] [address] Nurse Practitioner Advanced Practice Nurse 04/20/23 Deborah Clark, RN [place] Nurse Navigator 11/24/23 11/26/23 Dk Friedman APRN, JAMB CUTTER [address] [place] [phone] Virtual [facility] Care (VAC) INDEPENDENT CROP CONSULTANT Advanced Practice Nurse 11/26/23 11/30/23 documented as of this encounter
--- OUTSIDE RECORDS SUMMARY | 2024-04-15 14:15 | XMS_ITS | Encounter Summary ---
Author Organization [facility] Address [address] [place] [address] Phone Care Team Providers Care Licensed Weigher Name Role Phone Miguel Worrell MD Primary Care Provider [phone] Prosper Browne MD Unavailable [phone] Sarath Gonsalez MD [facility]available [facility] David Eller MD Primary Care Provider [phone] Ally Caraballo MD Unavailable Jojo Skinner MD Unavailable [phone] Santiago Dasilva MD Unavailable [phone] Yusef Carias MD Unavailable + [phone] Viraj Luna MD Unavailable [phone] Timo Mckeon MD Primary Care Provider [phone] Karen Rodriguez APRN, FRICTION SAW OPERATOR Unavailable + [phone] Deborah Clark RN Unavailable UnavailDk Mendez APRN, SLAUGHTERER RELIGIOUS RITUAL Unavailable [phone] David Patton MD Primary Care Provider [phone] Timo Mckeon MD Primary Care Provider [phone] Reason for Visit * Reason Comments Medication Refill Encounter Details Date Type Department Care Team (Late st Contact Info) Description 11/27/2021 Refill [facility] #[address] [place] [address] Miguel Worrell MD [address] [place] [address] Medication Refill Social History Tobacco Use Types [...] Telephone Encounter - Nakita Christine RN - 11/27/2021 1:22 PM CDT PDMP 10/24/21 Medication failed the protocol, provider to review and approve the medication order if appropriate. Requested Prescriptions Pending Prescriptions Disp Refills clonazePAM (KlonoPIN) 0.5 MG Tablet [Pharmacy Med Name: CLONAZEPAM 0.5MG TABLET] 60 Tablet 0 Sig: TAKE ONE (1) TABLET BY MOUTH TWICE DAILY Not Delegated - Clonazepam Protocol Failed - 11/27/2021 10:02 AM Failed - This refill cannot be delegated Passed - Visit with relevant provider in past 12 months or upcoming 90 days Recent Visits Date Type Provider Dept 11/18/21 Office Visit Miguel Worrell MD [facility] 10/20/21 Office Visit Jerri Mandie, [facility] [place] 10/07/[address] APRN, МАРИЯ [facility] [place] 07/15/21 Office Visit Miguel Worrell MD [facility] 07/08/[address] APRN, МАРИЯ [facility] 05/27/[address] APRN, МАРИЯ [facility] [place] 03/18/21 Office Visit Miguel Worrell MD [facility] 03/10/21 [facility] Showing recent visits within past 365 days and meeting all other requirements Future Appointments No visits were found meeting these conditions. Showing future appointments within next 90 days and meeting all other requirements documented in this encounter Plan of Treatment Upcoming Encounters Date Type Department Care Team (Late st Contact Info) Description 04/17/2024 9:00 AM SENIOR SOURCING MANAGER [facility] [address] [place] [address] Stanislav Maya, [place] 07/04/2024 10:30 AM CDT [facility] - [place] #2 [place] [address] Karen Rodriguez APRN, FRICTION SAW OPERATOR #2 [facility], [facility] [address] [place] [address] documented as of this encounter Visit Diagnoses Diagnosis Generalized anxiety disorder documented in this encounter Additional Health Concerns Infection Onset Date Last Indicated Resolved Time COVID - 19 12/11/2021 12/11/2021 12/21/2021 12:1 6 AM CDT COVID - 19 11/17/2023 11/17/2023 11/17/2023 7:31 PM CDT COVID - 19 12/18/2023 12/18/2023 12/18/2023 1:39 PM CDT COVID - 19 Confirmed 12/18/2023 12/18/2023 024 12:17 AM SENIOR SOURCING MANAGER documented as of this encounter Care Teams Licensed Weigher Relationship Specialty Start Date End Date Miguel Worrell MD PCP - General Family Medicine 03/03/21 08/04/22 David Patton MD [address] [place] [address] PCP - General Internal Medicine 08/05/22 11/29/22 Timo Mckeon MD [address] [place] [address] PCP - General Family Medicine 11/30/22 11/25/23 David Patton MD [address] [place] [address] PCP - General Internal Medicine 11/26/23 11/29/23 Timo Mckeon MD [address] [place] [address] PCP - General Family Medicine 12/12/23 Prosper Browne MD #[address] [address] Consulting Physician General Surgery 03/24/21 Sarath Gonsalez MD #[address] [address] Pool Finisher Cardiovascular Disease - Cardiology 08/11/21 01/30/24 Ally Caraballo MD [address] [place] [address] Consulting Physician Sleep Medicine 08/05/22 [place] [address] [place] [address] Consulting Physician Otolaryngology 08/05/22 Santiago Dasilva MD [address] [place] [address] [address] [place] [address] Consulting Physician Pulmonary Disease 08/05/22 Yusef Carias MD [address] [place] [address] Consulting Physician Pain Medicine-Pain Management 09/22/22 Viraj Luna MD [address] [place] [address] [address] [place] [address] Consulting Physician Gastroenterology 10/08/22 Karen Rodriguez APRN, FRICTION SAW OPERATOR #2 [facility], [address] [place] [address] Nurse Practitioner Advanced Practice Nurse 04/20/23 Deborah Clark RN [place] Nurse Navigator 11/24/23 11/26/23 Dk Friedman APRN, SLAUGHTERER RELIGIOUS RITUAL [address] [place] [address] Virtual [facility] Care (VAC) SNACK STEWARD Advanced Practice Nurse 11/26/23 11/30/23 documented as of this encounter
--- OUTSIDE RECORDS SUMMARY | 2024-04-15 14:15 | XMS_ITS | Encounter Summary ---
Author Organization [facility] Address [address] [place] [address] Phone Care Team Providers Care Tester Armature Or Fields Name Role Phone Miguel Worrell MD Primary Care Provider [phone] Prosper Browne MD Unavailable [phone] Sarath Gonsalez MD Unavailable [facility] David Eller MD Primary Care Provider [phone] Ally Caraballo MD Unavailable Jojo Skinner MD Unavailable [phone] Santiago Dasilva MD Unavailable [phone] Yusef Carias MD Unavailable + [phone] Viraj Luna MD Unavailable [phone] Timo Mckeon MD Primary Care Provider [phone] Karen Rodriguez APRN, READING INTERVENTION TEACHER Unavailable + [phone] Deborah Clark RN Unavailable UnavailDk Mendez APRN, ELECTRIC APPLIANCE INSTALLER Unavailable +[phone] David Patton MD Primary Care Provider [phone] Timo Mckeon MD Primary Care Provider [phone] Encounter Details Date Type Department Care Team (Late st Contact Info) Description 10/20/2021 Telephone [facility] Med Surg [address] [place] [address] Amelia Cardozo RN [place] Social History Tobacco Use Types Packs/Day Years [...] Recorded Total Score - Questions 1-9 0 /0 06/2021 Sexually Active Control Partners Comments Not [...] suspected to have Coronavirus/COVID-19? No / Unsure 10/20/2021 8:11 AM CDT documented as of this encounter Plan of Treatment Upcoming Encounters Date Type Department Care Team (Late st Contact Info) Description 04/17/2024 9:00 AM MOLDER INFLATED BALL OC[facility] [address] [place] [address] [place] 07/04/2024 10:30 AM CDT Office Visit [facility] - [place] #2 [place] [address] Karen Rodriguez APRN, READING INTERVENTION TEACHER #2 [facility], [address] [place] [address] documented as of this encounter Visit Diagnoses Not on filedocumented in this encounter Additional Health Concerns Infection Onset Date Last Indicated Resolved Time COVID - 19 12/11/202112/1112/11/2021 12/21/2021 12:1 6 AM CDT COVID - 19 11/17/2023 11/17/2023 11/17/2023 7:31 PM CDT COVID - 19 12/18/2023 12/18/2023 12/18/2023 1:39 PM CDT COVID - 19 Confirmed 12/18/2023 12/18/2023 024 12:17 AM MOLDER INFLATED BALL documented as of this encounter Care Teams Tester Armature Or Fields Relationship Specialty Start Date End Date Miguel Worrell MD PCP - General Family Medicine 03/03/21 08/04/22 David Patton MD [address] [place] [address] PCP - General Internal Medicine 08/05/22 11/29/22 Timo Mckeon MD [address] [place] [address] PCP - General Family Medicine 11/30/22 11/25/23 David Patton MD [address] [place] [address] PCP - General Internal Medicine 11/26/23 11/29/23 Timo Mckeon MD [address] [place] [address] PCP - General Family Medicine 12/12/23 Prosper Browne MD #[address] [address] Consulting Physician General Surgery 03/24/21 Sarath Gonsalez MD #[address] [facility] [address] [place] [address] Food Sales Clerk Cardiovascular Disease - Cardiology 08/11/21 01/30/24 Ally Caraballo MD [address] [place] [address] Consulting Physician Sleep Medicine 08/05/22 [place] [address] [place] [address] Consulting Physician Otolaryngology 08/05/22 Santiago Dasilva MD [address] [place] [address] [address] [place] [address] Consulting Physician Pulmonary Disease 08/05/22 Yusef Carias MD [address] [place] [address] Consulting Physician Pain Medicine-Pain Management 09/22/22 Viraj Luna MD [address] [facility] [address] [facility] [address] [place] [address] Consulting Physician Gastroenterology 10/08/22 Karen Rodriguez APRN, READING INTERVENTION TEACHER #[address] [facility], [address] [place] [address] Nurse Practitioner Advanced Practice Nurse 04/20/23 Deborah Clark RN [place] Nurse Navigator 11/24/23 11/26/23 Dk Friedman APRN, ELECTRIC APPLIANCE INSTALLER [address] [place] [id number] Virtual Advanced Care (VAC) BUSINESS MAIL ENTRY CLERK Advanced Practice Nurse 11/26/23 11/30/23 documented as of this encounter
--- OUTSIDE RECORDS SUMMARY | 2024-04-15 14:15 | XMS_ITS | Encounter Summary ---
Author Organization [facility] Address [address] [place] [address] Phone Care Team Providers Care Senior Web Applications Developer Name Role Phone Miguel Worrell MD Primary Care Provider [phone] Prosper Browne MD Unavailable [phone] Sarath Gonsalez MD [facility]available [facility] David Eller MD Primary Care Provider [phone] Ally Caraballo MD Unavailable Jojo Skinner MD Unavailable [phone] Santiago Dasilva MD Unavailable [phone] Yusef Carias MD Unavailable + [phone] Viraj Luna MD Unavailable [phone] Timo Mckeon MD Primary Care Provider [phone] Karen Rodriguez APRN, BOOSTER ASSEMBLER Unavailable + [phone] Deborah Clark RN Unavailable UnavailDk Mendez APRN, MARKET PRESIDENT Unavailable [phone] David Patton MD Primary Care Provider [phone] Timo Mckeon MD Primary Care Provider [phone] Reason for Visit * Reason Comments Medication Refill Encounter Details Date Type Department Care Team (Late st Contact Info) Description 09/22/2021 Refill [facility] - Family Medicine - [place] [address] [place] [phone] Miguel Worrell MD [address] [address] Medication Refill Social History Tobacco Use Types [...] Encounter - Nakita Christine RN - 09/23/2021 8:11 AM CDT PDMP 08/26/21 Medication failed the protocol, provider to review and approve the medication order if appropriate. Requested Prescriptions Pending Prescriptions Disp Refills atorvastatin (LIPITOR) 20 MG Tablet [Pharmacy Med Name: ATORVASTATIN CALCIUM 20MG TABLET] 30 Tablet5 Sig: TAKE ONE (1) TABLET BY MOUTH DAILY. Hmg CoA Reductase Inhibitors Protocol Passed - 09/22/2021 10:25 AM Passed - Visit with relevant provider in past 12 months or upcoming 90 days Recent Visits Date Type Provider Dept 07/15/21 Office Visit Miguel Worrell MD [facility] [place] 07/08/[address] APRN, [facility] [place] 05/27/[address] APRN, [facility] [place] 03/18/21 Office Visit Miguel Worrell MD [facility] 03/10/21 Office Visit Miguel Worrell MD [facility] Showing recent visits within past 365 days and meeting all other requirements Future Appointments Date Type Provider Dept 11/18/21 Appointment Miguel Worrell MD [facility] Showing future appointments within next 90 days and meeting all other requirements Passed - Lipid panel in past 12 months LDL Date Value Ref Range Status 03/01/2021 89 5 - 130 mg/dL Final HDL CHOLESTEROL Date Value Ref Range Status 03/01/2021 38.0 (L) >40 mg/dL Final CHOLESTEROL Date Value Ref Range Status 03/01/2021 174 <=200 mg/dL Final TRIGLYCERIDES Date Value Ref Range Status 03/01/2021 236 (H) <150 mg/dL Final VLDL Date Value Ref Range Status 03/01/2021 47 5 - 55 mg/dL Final CHOL/HDL RATIO Date Value Ref Range Status 03/01/2021 4.6 (H) 0.0 - 4.4 Final NON-HDL CHOLESTEROL Date Value Ref Range Status 03/01/2021 136 (H) <130 mg/dL Final clonazePAM (KlonoPIN) 0.5 MG Tablet [Pharmacy Med Name: CLONAZEPAM 0.5MG TABLET] 60 Tablet 0 Sig: TAKE ONE (1) TABLET BY MOUTH TWICE DAILY Not Delegated - Clonazepam Protocol Failed - 09/22/2021 10:25 AM Failed - This refill cannot be delegated Passed - Visit with relevant provider in past 12 months or upcoming 90 days Recent Visits Date Type Provider Dept 07/15/21 Office Visit Miguel Worrell MD [facility] 07/08/[address] APRN, [facility] [place] 05/27/[address] APRN, [facility] [place] 03/18/21 Office Visit Miguel Worrell MD [facility] 03/10/21 Office Visit Miguel Worrell MD [facility] Showing recent visits within past 365 days and meeting all other requirements Future Appointments Date Type Provider Dept 11/18/21 Appointment Miguel Worrell MD [facility] Showing future appointments within next 90 days and meeting all other requirements documented in this encounter Plan of Treatment Upcoming Encounters Date Type Department Care Team (Late st Contact Info) Description 04/17/2024 9:00 AM GRINDER SET UP OPERATOR UNIVERSAL [facility] [address] [place] [address] [place] 07/04/2024 10:30 AM CDT Office Visit [facility] - Cardiology - [place] [address] [place] [address] Karen Rodriguez APRN, BOOSTER ASSEMBLER [address] [facility], [address] [place] [address] documented as of this encounter Visit Diagnoses [...] 19 Confirmed 12/18/2023 12/18/2023 024 12:17 AM GRINDER SET UP OPERATOR UNIVERSAL documented as of this encounter Care Teams Senior Web Applications Developer Relationship Specialty Start Date End Date Miguel Worrell MD PCP - General Family Medicine 03/03/21 08/04/22 David Patton MD [address] [place] [address] PCP - General Internal Medicine 08/05/22 11/29/22 Timo Mckeon MD [address] [place] [address] PCP - General Family Medicine 11/30/22 11/25/23 David Patton MD [address] [place] [address] PCP - General Internal Medicine 11/26/23 11/29/23 Timo Mckeon MD [address] [place] [phone] PCP - General Family Medicine 12/12/23 Prosper Browne MD [address] [address] Consulting Physician General Surgery 03/24/21 Sarath Gonsalez MD #[address] [address] Mixer Blender Cardiovascular Disease - Cardiology 08/11/21 01/30/24 Ally Caraballo MD [address] [place] [address] Consulting Physician Sleep Medicine 08/05/22 [place] [address] [place] [address] Consulting Physician Otolaryngology 08/05/22 Santiago Dasilva MD [address] [place] [address] Consulting Physician Pulmonary Disease 08/05/22 Yusef Carias MD [address] [facility] [place] [address] Consulting Physician Pain Medicine-Pain Management 09/22/22 Viraj Luna MD [address] [facility] [address] [place] [address] Consulting Physician Gastroenterology 10/08/22 Karen Rodriguez APRN, BOOSTER ASSEMBLER [address] [facility], [address] [place] [address] Nurse Practitioner Advanced Practice Nurse 04/20/23 Deborah Clark, RN [place] Nurse Navigator 11/24/23 11/26/23 Dk Friedman APRN, MARKET PRESIDENT [address] [place] [address] [facility] ([facility]) CHASSIS INSPECTOR Advanced Practice Nurse 11/26/23 11/30/23 documented as of this encounter
--- OUTSIDE RECORDS SUMMARY | 2024-04-15 14:15 | XMS_ITS | Encounter Summary ---
Author Organization [facility] Address [address] [place] [address] Phone Care Team Providers Care Brick Molder Hand Name Role Phone Miguel Worrell MD Primary Care Provider [phone] Prosper Browne MD Unavailable [phone] Sarath Gonsalez MD Unavailable [facility] David Eller MD Primary Care Provider [phone] Ally Caraballo MD Unavailable Jojo Skinner MD Unavailable [phone] Santiago Dasilva MD Unavailable [phone] Yusef Carias MD Unavailable + [phone] Viraj Luna MD Unavailable [phone] Timo Mckeon MD Primary Care Provider [phone] Karen Rodriguez APRN, CABLE TELEVISION LINE TECHNICIAN Unavailable + [phone] Deborah Clark RN Unavailable UnavailDk Mendez APRN, GAME WARDEN Unavailable [phone] David Patton MD Primary Care Provider [phone] Timo Mckeon MD Primary Care Provider [phone] Reason for Visit * Reason Comments Medication Refill Encounter Details Date Type Department Care Team (Late st Contact Info) Description 10/20/2021 Refill [facility] - Family [facility] [address] [place] [phone] Miguel Worrell MD [address] [place] [address] Medication Refill Social History Tobacco Use Types [...] encounter Miscellaneous Notes * Telephone Encounter - Cara De Los Santos RN - 10/21/2021 8:46 AM CDT PDMP 09/25/2021 Medication failed the protocol, provider to review and approve the medication order if appropriate. Requested Prescriptions Pending Prescriptions Disp Refills clonazePAM (KlonoPIN) 0.5 MG Tablet [Pharmacy Med Name: CLONAZEPAM 0.5MG TABLET] 60 Tablet 0 Sig: TAKE ONE (1) TABLET BY MOUTH TWICE DAILY Not Delegated - Clonazepam Protocol Failed - 10/20/2021 9:35 AM Failed - This refill cannot be delegated Passed - Visit with relevant provider in past 12 months or upcoming 90 days Recent Visits Date Type Provider Dept 10/20/21 Office Visit Rosa Guthrie, [facility] [place] 10/07/[address] APRN, [facility] [place] 07/15/21 Office Visit Miguel Worrell MD [facility] [place] 07/08/[address] APRN, [facility] [place] 05/27/[address] APRN, [facility] [place] 03/18/21 Office Visit Miguel Worrell MD [facility] [place] 03/10/21 Office Visit Miguel Worrell, [facility] [place] Showing recent visits within past 365 days and meeting all other requirements Future Appointments Date Type Provider Dept 11/18/21 Appointment Miguel Worrell MD [facility] [place] Showing future appointments within next 90 days and meeting all other requirements documented in this encounter Plan of Treatment Upcoming Encounters Date Type Department Care Team (Late st Contact Info) Description 04/17/2024 9:00 AM STEEL TIER [facility] [address] [place] [address] Stanislav Maya, [place] 07/04/2024 10:30 AM CDT [facility] - [facility]iology - [place] [address] [place] [address] Karen Rodriguez APRN, CABLE TELEVISION LINE TECHNICIAN #2 [facility] [address] [place] [address] documented as of this encounter Visit Diagnoses Diagnosis Generalized anxiety disorder documented in this encounter Additional Health Concerns Infection Onset Date Last Indicated Resolved Time COVID - 19 12/11/2021 12/11/2021 12/21/2021 12:1 6 AM CDT COVID - 19 11/17/2023 11/17/2023 11/17/2023 7:31 PM CDT COVID - 19 12/18/2023 12/18/2023 12/18/2023 1:39 PM CDT COVID - 19 Confirmed 12/18/2023 12/18/2023 024 12:17 AM STEEL TIER documented as of this encounter Care Teams Brick Molder Hand Relationship Specialty Start Date End Date Miguel Worrell MD PCP - General Family Medicine 03/03/21 08/04/22 David Patton MD [address] [place] [address] PCP - General Internal Medicine 08/05/22 11/29/22 Timo Mckeon MD [address] [place] [address] PCP - General Family Medicine 11/30/22 11/25/23 David Patton MD [address] [place] [address] PCP - General Internal Medicine 11/26/23 11/29/23 Timo Mckeon MD [address] [place] [phone] PCP - General Family Medicine 12/12/23 Prosper Browne MD #[address] [phone] Consulting Physician General Surgery 03/24/21 Sarath Gonsalez MD #[address] [address] Pediatric Rn Cardiovascular Disease - Cardiology 08/11/21 01/30/24 Ally Caraballo MD [address] [place] [address] Consulting Physician Sleep Medicine 08/05/22 [place] [address] [place] [address] Consulting Physician Otolaryngology 08/05/22 Santiago Dasilva MD [address] [place] [address] [address] [place] [address] Consulting Physician Pulmonary Disease 08/05/22 Yusef Carias MD [address] [place] [address] Consulting Physician Pain Medicine-Pain Management 09/22/22 Viraj Luna MD [address] [place] [address] [address] [place] [address] Consulting Physician Gastroenterology 10/08/22 Karen Rodriguez APRN, CABLE TELEVISION LINE TECHNICIAN [address] [facility], [address] [place] [address] Nurse Practitioner Advanced Practice Nurse 04/20/23 Deborah Clark RN [place] Nurse Navigator 11/24/23 11/26/23 Dk Friedman APRN, GAME WARDEN [address] [place] [address] [facility] ([facility]) SECRETARY RECEPTIONIST Advanced Practice Nurse 11/26/23 11/30/23 documented as of this encounter
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
--- OUTSIDE RECORDS SUMMARY | 2024-04-15 14:15 | XMS_ITS | Encounter Summary ---
Author Organization [facility] Address [address] [place] [address] Phone Care Team Providers Care Geophysical Observer Name Role Phone Miguel Worrell MD Primary Care Provider [phone] Prosper Browne MD Unavailable [phone] Sarath Gonsalez MD Unavailable [facility] David Eller MD Primary Care Provider [phone] Ally Caraballo MD Unavailable Jojo Skinner MD Unavailable [phone] Santiago Dasilva MD Unavailable [phone] Yusef Carias MD Unavailable [phone] Viraj Luna MD Unavailable [phone] Timo Mckeon MD Primary Care Provider [phone] Karen Rodriguez APRN, BUYERS' AGENT Unavailable + [phone] Deborah Clark RN Unavailable UnavailDk Mendez APRN, ZONE MAINTENANCE TECHNICIAN Unavailable [phone] David Patton MD Primary Care Provider [phone] Timo Mckeon MD Primary Care Provider [phone] Reason for Visit * Reason Comments Medication Refill Encounter Details Date Type Department Care Team (Late st Contact Info) Description 11/08/2021 Refill [facility] - Family [facility] [address] [place] [phone] Miguel Worrell MD [address] [place] [address] Medication Refill Social History Tobacco Use Types [...] suspected to have Coronavirus/COVID-19? No / Unsure 11/07/2021 8:37 AM CDT documented as of this encounter Miscellaneous Notes * Telephone Encounter - Nakita Christine RN - 11/10/2021 10:52 AM CDT Last Rx by Dr Luciano Per nursing clinical judgement, provider to review and approve the medication(s) order(s) if appropriate. Requested Prescriptions Pending Prescriptions Disp Refills fluticasone (FLONASE) 50 MCG/ACT Suspension [Pharmacy Med Name: FLUTICASONE PROPIONATE 50MCG SUSPENSION] 16 g 5 Sig: ADMINISTER TWO (2) SPRAYS INTO EACH NOSTRIL DAILY Nasal Steroids Protocol Passed - 11/08/2021 9:50 AM Passed - Visit with relevant provider in past 12 months or upcoming 90 days Recent Visits Date Type Provider Dept 10/20/21 Office Visit Jerri Rosa Small, V[facility] [place] 10/07/[address] APRN, МАРИЯ [facility] [place] 07/15/21 Office Visit Miguel Worrell MD [facility] 07/08/[address] APRN, МАРИЯ [facility] [place] 05/27/[address] APRN, МАРИЯ [facility] [place] 03/18/21 Office Visit Miguel Worrell MD [facility] [place] 03/10/21 Office Visit Miguel Worrell MD [facility] [place] Showing recent visits within past 365 days and meeting all other requirements Future Appointments Date Type Provider Dept 11/18/21 Appointment Miguel Worrell MD [facility] [place] Showing future appointments within next 90 days and meeting all other requirements documented in this encounter Plan of Treatment Upcoming Encounters Date Type Department Care Team (Late st Contact Info) Description 04/17/2024 9:00 AM SANDER AND POLISHER OCAC [facility] [address] [place] [address] Stanislav Maya, [facility] 07/04/2024 10:30 AM CDT Office Visit [facility] - [place] [address] [place] [address] Karen Rodriguez APRN, BUYERS' AGENT [address] [facility], [facility] [address] [place] [address] documented as of this encounter Visit Diagnoses Not on filedocumented in this encounter Additional Health Concerns Infection Onset Date Last Indicated Resolved Time COVID - 19 12/11/2021 12/11/2021 12/21/2021 12:1 6 AM CDT COVID - 19 11/17/2023 11/17/2023 11/17/2023 7:31 PM CDT COVID - 19 12/18/2023 12/18/2023 12/18/2023 1:39 PM CDT COVID - 19 Confirmed 12/18/2023 12/18/2023 024 12:17 AM SANDER AND POLISHER documented as of this encounter Care Teams Geophysical Observer Relationship Specialty Start Date End Date Miguel Worrell MD PCP - General Family Medicine 03/03/21 08/04/22 David Patton MD [address] [place] [address] PCP - General Internal Medicine 08/05/22 11/29/22 Timo Mckeon MD [address] [place] [address] PCP - General Family Medicine 11/30/22 11/25/23 David Patton MD [address] [place] [address] PCP - General Internal Medicine 11/26/23 11/29/23 Timo Mckeon MD [address] [place] [id number] PCP - General Family Medicine 12/12/23 Prosper Browne MD [address] [phone] Consulting Physician General Surgery 03/24/21 Sarath Gonsalez MD [address] [address] Plant Control Operator Cardiovascular Disease - Cardiology 08/11/21 01/30/24 Ally Caraballo MD [address] [place] [address] Consulting Physician Sleep Medicine 08/05/22 [place] [address] [place] [address] Consulting Physician Otolaryngology 08/05/22 Santiago Dasilva MD [address] [place] [address] [address] [place] [address] Consulting Physician Pulmonary Disease 08/05/22 Yusef Carias MD [address] [place] [address] Consulting Physician Pain Medicine-Pain Management 09/22/22 Viraj Luna MD [address] [place] [address] [address] [place] [address] Consulting Physician Gastroenterology 10/08/22 Karen Rodriguez APRN, BUYERS' AGENT [address] [facility], [address] [place] [address] Nurse Practitioner Advanced Practice Nurse 04/20/23 Deborah Clark RN [place] Nurse Navigator 11/24/23 11/26/23 Dk Friedman APRN, ZONE MAINTENANCE TECHNICIAN [address] [place] [address] [facility] ([facility]AC) DISPATCH OFFICER Advanced Practice Nurse 11/26/23 11/30/23 documented as of this encounter
--- OUTSIDE RECORDS SUMMARY | 2024-04-15 14:15 | XMS_ITS | Referral Summary ---
Author Organization [facility] Address [address] [place] [address] Care Team Providers Care Supervisor Statement Clerks Name Role Phone Unavailable Primary Care Provider Unavailabl e Source Comments [facility], formerly [facility] Affiliates and Associated Physician Practices is amultiple site organization consisting of ambulatory clinics and hospital sitesin [place], [place], [place] and [place]. This disclosure is being madepursuant to the Care Everywhere program and may not contain all information available regarding this patient. Last updated 17.[facility] [employer] Social History Tobacco Use Types Packs/Day Years Used Date Smoking Tobacco: Never Assessed Sex and Gender Information Value Date Recorded Sex Assigned at Not on file Gender Identity Not on file Sexual Orientation Not on file Plan of Treatment Not on file
--- OUTSIDE RECORDS SUMMARY | 2024-04-15 14:15 | XMS_ITS | Encounter Summary ---
Author Organization [facility] Address [address] [place] [address] Phone Care Team Providers Care Firmware Software Verification Engineer Name Role Phone Miguel Worrell MD Primary Care Provider [phone] Prosper Browne MD Unavailable [phone] Sarath Gonsalez MD Unavailable [place] [facility] David Eller MD Primary Care Provider [phone] Ally Caraballo MD Unavailable Jojo Skinner MD Unavailable +[phone] Santiago Dasilva MD Unavailable [phone] Yusef Carias MD Unavailable + [phone] Viraj Luna MD Unavailable +[phone] Timo Mckeon MD Primary Care Provider [phone] Karen Rodriguez APRN, ALUMINUM CAN COLLECTOR Unavailable + [phone] Deborah Clark RN Unavailable UnavailDk Mendez APRN, HUMAN RESOURCES ADMINISTRATOR Unavailable +[phone] David Patton MD Primary Care Provider [phone] Timo Mckeon MD Primary Care Provider [phone] Reason for Visit * Reason Comments Medication Refill Encounter Details Date Type Department Care Team (Late st Contact Info) Description 05/15/2022 Refill [facility] Family [facility] [address] [place] [phone] Miguel Worrell MD [address] [place] [address] Medication Refill Social History Tobacco Use Types [...] suspected to have Coronavirus/COVID-19? No / Unsure 04/21/2022 1:46 PM DESULPHURIZER OPERATOR documented as of this encounter Miscellaneous Notes * Telephone Encounter - Nakita Christine RN - 05/15/2022 10:45 AM CDT PDMP 04/13/22 Medication failed the protocol, provider to review and approve the medication order if appropriate. Requested Prescriptions Pending Prescriptions Disp Refills clonazePAM (KlonoPIN) 0.5 MG Tablet [Pharmacy Med Name: CLONAZEPAM 0.5MG TABLET] 60 Tablet 0 Sig: TAKE ONE (1) TABLET BY MOUTH TWO (2) TIMES DAILY. Not Delegated - Clonazepam Protocol Failed - 05/15/2022 9:26 AM Failed - This refill cannot be delegated Passed - Visit with relevant provider in past 12 months or upcoming 90 days Recent Visits Date Type Provider Dept 01/29/22 Office Visit Miguel Worrell MD [facility] 11/18/21 Office Visit Miguel Worrell MD [facility] 10/20/21 Office Visit Jerri Rosa Small, V[facility] [place] 10/07/[address] APRN, ALUMINUM CAN COLLECTOR [facility] [place] 07/15/21 Office Visit Miguel Worrell MD [facility] 07/08/[address] APRN, МАРИЯ [facility] [place] 05/27/[address] APRN, ALUMINUM CAN COLLECTOR [facility] [place] Showing recent visits within past 365 days and meeting all other requirements Future Appointments Date Type Provider Dept 06/05/22 Appointment Miguel Worrell MD [facility] Showing future appointments within next 90 days and meeting all other requirements documented in this encounter Plan of Treatment Upcoming Encounters Date Type Department Care Team (Late st Contact Info) Description 04/17/2024 9:00 AM DESULPHURIZER OPERATOR [facility] [address] [place] [address] [place] 07/04/2024 10:30 AM CDT [facility] - [place] [address] [place] [address] Karen Rodriguez APRN, ALUMINUM CAN COLLECTOR #2 [facility] [address] [place] [address] documented as of this encounter Visit Diagnoses Diagnosis Generalized anxiety disorder documented in this encounter Additional Health Concerns Infection Onset Date Last Indicated Resolved Time COVID - 19 11/17/2023 11/17/2023 11/17/2023 7:31 PM CDT COVID - 19 12/18/2023 12/18/2023 12/18/2023 1:39 PM CDT COVID - 19 Confirmed 12/18/2023 12/18/2023 024 12:17 AM DESULPHURIZER OPERATOR documented as of this encounter Care Teams Firmware Software Verification Engineer Relationship Specialty Start Date End Date Miguel Worrell MD PCP - General Family Medicine 03/03/21 08/04/22 David Patton MD [address] [place] [address] PCP - General Internal Medicine 08/05/22 11/29/22 Timo Mckeon MD [address] [place] [address] PCP - General Family Medicine 11/30/22 11/25/23 David Patton MD [address] [place] [address] PCP - General Internal Medicine 11/26/23 11/29/23 Timo Mckeon MD [address] [place] [phone] PCP - General Family Medicine 12/12/23 Prosper Browne MD #[address] [phone] Consulting Physician General Surgery 03/24/21 Sarath Gonsalez MD #[address] [address] Retort Firer Cardiovascular Disease - Cardiology 08/11/21 01/30/24 Ally Caraballo MD [address] [place] [address] Consulting Physician Sleep Medicine 08/05/22 [place] [address] [place] [address] Consulting Physician Otolaryngology 08/05/22 Santiago Dasilva MD 4 [facility] [address] [place] [address] Consulting Physician Pulmonary Disease 08/05/22 Yusef Carias MD [address] [place] [address] Consulting Physician Pain Medicine-Pain Management 09/22/22 Viraj Luna MD [address] [facility] [address] [place] [address] Consulting Physician Gastroenterology 10/08/22 Karen Rodriguez APRN, ALUMINUM CAN COLLECTOR #2 [facility], [address] [place] [address] Nurse Practitioner Advanced Practice Nurse 04/20/23 Deborah Clark RN [place] Nurse Navigator 11/24/23 11/26/23 Dk Friedman APRN, HUMAN RESOURCES ADMINISTRATOR [address] [place] [phone] [facility] (VAC) CANAL LOCK TENDER CHIEF OPERATOR Advanced Practice Nurse 11/26/23 11/30/23 documented as of this encounter
--- OUTSIDE RECORDS SUMMARY | 2024-04-15 14:15 | XMS_ITS | Encounter Summary ---
Author Organization [facility] Address [address] [place] [address] Phone Care Team Providers Care French Lecturer Name Role Phone Miguel Worrell MD Primary Care Provider [phone] Prosper Browne MD Unavailable [phone] Sarath Gonsalez MD Unavailable [facility] David Eller MD Primary Care Provider [phone] Ally Caraballo MD Unavailable Jojo Skinner MD Unavailable +[phone] Santiago Dasilva MD Unavailable [phone] Yusef Carias MD Unavailable + [phone] Viraj Luna MD Unavailable [phone] Timo Mckeon MD Primary Care Provider [phone] Karen Rodriguez APRN, WATER METER INSTALLER Unavailable + [phone] Deborah Clark RN Unavailable UnavailDk Mendez APRN, TAPE FASTENER MACHINE OPERATOR Unavailable [phone] David Patton MD Primary Care Provider [phone] Timo Mckeon MD Primary Care Provider [phone] Reason for Visit * Reason Comments Medication Refill Encounter Details Date Type Department Care Team (Late st Contact Info) Description 02/26/2022 Refill [facility] [address] [place] [phone] Miguel Worrell MD [address] [place] [address] Medication Refill Social History Tobacco Use Types [...] suspected to have Coronavirus/COVID-19? No / Unsure 02/09/2022 10:41 AM CALL CENTER RECEPTIONIST documented as of this encounter Miscellaneous Notes * Telephone Encounter - Ginny Sarabia RN - 02/26/2022 2:48 PM CST PDMP 01/16/22 Medication failed the protocol, provider to review and approve the medication order if appropriate. Requested Prescriptions Pending Prescriptions Disp Refills clonazePAM (KlonoPIN) 0.5 MG Tablet [Pharmacy Med Name: CLONAZEPAM 0.5MG TABLET] 60 Tablet 0 Sig: TAKE ONE (1) TABLET BY MOUTH TWO (2) TIMES DAILY. Not Delegated - Clonazepam Protocol Failed - 02/26/2022 2:42 PM Failed - This refill cannot be delegated Passed - Visit with relevant provider in past 12 months or upcoming 90 days Recent Visits Date Type Provider Dept 01/29/22 Office Visit Miguel Worrell MD [facility] 11/18/21 Office Visit Miguel Worrell MD [facility] 10/20/21 Office Visit Jerri Rosa Small, [facility] [place] 10/07/[address] APRN, WATER METER INSTALLER [facility] [place] 07/15/21 Office Visit Miguel Worrell MD [facility] 07/08/[address] APRN, WATER METER INSTALLER [facility] [place] 05/27/[address] APRN, WATER METER INSTALLER [facility] [place] 03/18/21 Office Visit Miguel Worrell MD [facility] 03/10/21 [facility] Showing recent visits within past 365 days and meeting all other requirements Future Appointments No visits were found meeting these conditions. Showing future appointments within next 90 days and meeting all other requirements CENTER RECEPTIONIST documented in this encounter Plan of Treatment Upcoming Encounters Date Type Department Care Team (Late st Contact Info) Description 04/17/2024 9:00 AM CALL CENTER RECEPTIONIST [facility] [address] [place] [address] Stanislav Maya, [place] 07/04/2024 10:30 AM CDT Office Visit [facility] - [facility]iology - [place] [address] [place] [address] Karen Rodriguez APRN, WATER METER INSTALLER #2 [facility] [address] [place] [address] documented as of this encounter Visit Diagnoses Diagnosis Generalized anxiety disorder documented in this encounter Additional Health Concerns Infection Onset Date Last Indicated Resolved Time COVID - 19 11/17/2023 11/17/2023 11/17/2023 7:31 PM CDT COVID - 19 12/18/2023 12/18/2023 12/18/2023 1:39 PM CDT COVID - 19 Confirmed 12/18/2023 12/18/2023 024 12:17 AM CALL CENTER RECEPTIONIST documented as of this encounter Care Teams French Lecturer Relationship Specialty Start Date End Date Miguel Worrell MD PCP - General Family Medicine 03/03/21 08/04/22 David Patton MD [address] [place] [address] PCP - General Internal Medicine 08/05/22 11/29/22 Timo Mckeon MD [address] [place] [address] PCP - General Family Medicine 11/30/22 11/25/23 David Patton MD [address] [place] [address] PCP - General Internal Medicine 11/26/23 11/29/23 Timo Mckeon MD [address] [place] [phone] PCP - General Family Medicine 12/12/23 Prosper Browne MD #[address] [phone] Consulting Physician General Surgery 03/24/21 Sarath Gonsalez MD #[address] [address] Cloth Examiner Hand Cardiovascular Disease - Cardiology 08/11/21 01/30/24 Ally Caraballo MD [address] [place] [address] Consulting Physician Sleep Medicine 08/05/22 [place] [address] [place] [address] Consulting Physician Otolaryngology 08/05/22 Santiago Dasilva MD 4 [facility] [address] [place] [address] Consulting Physician Pulmonary Disease 08/05/22 Yusef Carias MD [address] [place] [address] Consulting Physician Pain Medicine-Pain Management 09/22/22 Viraj Luna MD [address] [facility] [address] [place] [address] Consulting Physician Gastroenterology 10/08/22 Karen Rodriguez APRN, WATER METER INSTALLER #2 [facility], [address] [place] [address] Nurse Practitioner Advanced Practice Nurse 04/20/23 Deborah Clark RN [place] Nurse Navigator 11/24/23 11/26/23 Dk Friedman APRN, TAPE FASTENER MACHINE OPERATOR [address] [place] [address] Virtual Advanced Care (VAC) BUILDER BEAM Advanced Practice Nurse 11/26/23 11/30/23 documented as of this encounter
--- OUTSIDE RECORDS SUMMARY | 2024-04-15 14:15 | XMS_ITS | Encounter Summary ---
Author Organization [facility] Address [address] [place] [address] Phone Care Team Providers Care Keymodule Assembly Supervisor Name Role Phone Miguel Worrell MD Primary Care Provider [phone] Prosper Browne MD Unavailable [phone] Sarath Gonsalez MD [facility]available [facility] David Eller MD Primary Care Provider [phone] Ally Caraballo MD Unavailable Jojo Skinner MD Unavailable [phone] Santiago Dasilva MD Unavailable [phone] Yusef Carias MD Unavailable + [phone] Viraj Luna MD Unavailable [phone] Timo Mckeon MD Primary Care Provider [phone] Karen Rodriguez APRN, CONTRACT FORESTER Unavailable + [phone] Deborah Clark RN Unavailable UnavailDk Mendez APRN, MISSION SUPPORT SPECIALIST Unavailable [phone] David Patton MD Primary Care Provider [phone] Timo Mckeon MD Primary Care Provider [phone] Reason for Visit * Reason Comments Medication Refill Encounter Details Date Type Department Care Team (Late st Contact Info) Description 07/25/2021 Refill [facility] - Family [facility] [address] [place] [phone] Miguel Worrell MD [address] [place] [address] Medication Refill Social History Tobacco Use Types [...] suspected to have Coronavirus/COVID-19? No / Unsure 07/24/2021 12:54 PM CDT documented as of this encounter Miscellaneous Notes * Telephone Encounter - Sharmaine Flores RN - 07/25/2021 1:52 PM CDT Medication failed the protocol, provider to review and approve the medication order if appropriate.PDMP reviewed. No UDS on file Requested Prescriptions Pending Prescriptions Disp Refills clonazePAM (KlonoPIN) 0.5 MG Tablet [Pharmacy Med Name: CLONAZEPAM 0.5MG TABLET] 60 Tablet 0 Sig: TAKE ONE (1) TABLET BY MOUTH TWICE DAILY Not Delegated - Clonazepam Protocol Failed - 07/25/2021 12:05 PM Failed - This refill cannot be delegated Passed - Visit with relevant provider in past 12 months or upcoming 90 days Recent Visits Date Type Provider Dept 07/15/21 [facility] 07/08/[address] APRN, МАРИЯ [facility] [place] 05/27/[address] APRN, М[facility] [place] 03/18/21 Office Visit Miguel Worrell MD [facility] 03/10/21 Office Visit [facility] Showing recent visits within past 365 days and meeting all other requirements Future Appointments No visits were found meeting these conditions. Showing future appointments within next 90 days and meeting all other requirements documented in this encounter Plan of Treatment Upcoming Encounters Date Type Department Care Team (Late st Contact Info) Description 04/17/2024 9:00 AM SHROUDMAN [facility] [address] [place] [address] Stanislav Maya, [facility] 07/04/2024 10:30 AM CDT Office Visit [facility] Medical Group - Cardiology - [place] [address] [place] [address] Karen Rodriguez APRN, CONTRACT FORESTER #2 [facility], [address] [place] [address] documented as of this encounter Visit Diagnoses [...] PM CDT COVID - 19 Confirmed 12/18/2023 12/18/202301/06/ 024 12:17 AM SHROUDMAN documented as of this encounter Care Teams Keymodule Assembly Supervisor Relationship Specialty Start Date End Date Miguel Worrell MD PCP - General Family Medicine 03/03/21 08/04/22 David Patton MD [address] [place] [address] PCP - General Internal Medicine 08/05/22 11/29/22 Timo Mckeon MD [address] [place] [address] PCP - General Family Medicine 11/30/22 11/25/23 David Patton MD [address] [place] [address] PCP - General Internal Medicine 11/26/23 11/29/23 Timo Mckeon MD [address] [place] [phone] PCP - General Family Medicine 12/12/23 Prosper Browne MD #[address] [address] Consulting Physician General Surgery 03/24/21 Sarath Gonsalez MD #[address] [address] Social Services Aide Cardiovascular Disease - Cardiology 08/11/21 01/30/24 Ally Caraballo MD [address] [place] [address] Consulting Physician Sleep Medicine 08/05/22 [place] [address] [place] [address] Consulting Physician Otolaryngology 08/05/22 Santiago Dasilva MD [address] [place] [address] [address] [place] [address] Consulting Physician Pulmonary Disease 08/05/22 Yusef Carias MD [address] [place] [address] Consulting Physician Pain Medicine-Pain Management 09/22/22 Viraj Luna MD [address] [place] [address] [address] [place] [address] Consulting Physician Gastroenterology 10/08/22 Karen Rodriguez APRN, CONTRACT FORESTER #2 [facility], [address] [place] [address] Nurse Practitioner Advanced Practice Nurse 04/20/23 Deborah Clark RN [place] Nurse Navigator 11/24/23 11/26/23 Dk Friedman APRN, MISSION SUPPORT SPECIALIST [address] [place] [phone] Virtual Advanced Care (VAC) SAMPLE DRILLER Advanced Practice Nurse 11/26/23 11/30/23 documented as of this encounter
--- OUTSIDE RECORDS SUMMARY | 2024-04-15 14:15 | XMS_ITS | Encounter Summary ---
Author Organization [facility] Address [address] [place] [address] Phone Care Team Providers Care Warehouse Worker Name Role Phone Miguel Worrell MD Primary Care Provider [phone] Prosper Browne MD Unavailable [phone] Sarath Gonsalez MD Unavailable [facility] David Eller MD Primary Care Provider [phone] Ally Caraballo MD Unavailable Jojo Skinner MD Unavailable [phone] Santiago Dasilva MD Unavailable [phone] Yusef Carias MD Unavailable + [phone] Viraj Luna MD Unavailable [phone] Timo Mckeon MD Primary Care Provider [phone] Karen Rodriguez APRN, CAR REPAIRER HELPER Unavailable + [phone] Deborah Clark RN Unavailable UnavailDk Mendez APRN, CREATIVE SERVICES INTERN Unavailable [phone] David Patton MD Primary Care Provider [phone] Timo Mckeon MD Primary Care Provider [phone] Reason for Visit * Reason Comments Medication Refill Encounter Details Date Type Department Care Team (Late st Contact Info) Description 04/06/2022 Refill [facility] [address] [place] [phone] Miguel Worrell MD [address] [place] [address] Medication Refill Social History Tobacco Use Types [...] suspected to have Coronavirus/COVID-19? Unable to assess 04/09/2022 1:15 PM ELECTRONIC SERVICE TECHNICIAN documented as of this encounter Miscellaneous Notes * Telephone Encounter - Nakita Christine RN - 04/06/2022 1:58 PM CST Medication failed the protocol, provider to review and approve the medication order if appropriate. Requested Prescriptions Pending Prescriptions Disp Refills ibuprofen (MOTRIN) 800 MG Tablet [Pharmacy Med Name: IBUPROFEN 800MG TABLET] 90 Tablet 3 Sig: TAKE ONE (1) TABLET BY MOUTH EVERY 8 HOURS. NSAIDs Protocol Failed - 04/06/2022 11:49 AM Failed - Normal serum creatinine in past 12 months CREATININE, BLOOD Date Value Ref Range Status 11/07/2021 0.58 (L) 0.60 - 1.10 mg/dL Final Passed - Visit with relevant provider in past 12 months or upcoming 90 days Recent Visits Date Type Provider Dept 01/29/22 Office Visit Miguel Worrell MD [facility] 11/18/21 Office Visit Miguel Worrell MD [facility] 10/20/21 Office Visit Rosa Guthrie, PAC [facility] [place] 10/07/[address] APRN, CAR REPAIRER HELPER [facility] 07/15/21 Office Visit Miguel Worrell MD [facility] 07/08/[address] APRN, CAR REPAIRER HELPER [facility] 05/27/[address] APRN, CAR REPAIRER HELPER [facility] [place] [place] Showing recent visits within past 365 days and meeting all other requirements Future Appointments Date Type Provider Dept 06/05/22 Appointment Miguel Worrell MD [facility] Showing future appointments within next 90 days and meeting all other requirements Passed - No matching NSAID med order in past 45 days No matching medication orders between 02/20/2022 1:58 PM and 04/06/2022 1:58 PM Passed - AST less than 55 or ALT less than 90 in past 12 months SGOT (AST) Date Value Ref Range Status 11/07/2021 20 <=32 U/L Final Comment: Hemolysis present: results may be falsely elevated. SGPT (ALT) Date Value Ref Range Status 11/07/2021 17 <=41 U/L Final Comment: Hemolysis present: results may be falsely elevated. Passed - HGB greater than 10 or HCT greater than 30 in past 12 months HEMOGLOBIN (HGB) Date Value Ref Range Status 11/07/2021 12.0 12.0 - 15.8 g/dL Final HEMATOCRIT (HCT) Date Value Ref Range Status 11/07/2021 36.9 36.0 - 47.0 % Final TRONIC SERVICE TECHNICIAN documented in this encounter Plan of Treatment Upcoming Encounters Date Type Department Care Team (Late st Contact Info) Description 04/17/2024 9:00 AM ELECTRONIC SERVICE TECHNICIAN [facility] [address] [place] [phone] [place] 07/04/2024 10:30 AM CDT Office Visit [facility] - Cardiology - [place] [address] [place] [address] Karen Rodriguez APRN, CAR REPAIRER HELPER #2 [facility], [address] [place] [address] documented as of this encounter Visit Diagnoses Not on filedocumented in this encounter Additional Health Concerns Infection Onset Date Last Indicated Resolved Time COVID - 19 11/17/2023 11/17/2023 11/17/2023 7:31 PM CDT COVID - 19 12/18/2023 12/18/2023 12/18/2023 1:39 PM CDT COVID - 19 Confirmed 12/18/2023 12/18/2023 024 12:17 AM ELECTRONIC SERVICE TECHNICIAN documented as of this encounter Care Teams Warehouse Worker Relationship Specialty Start Date End Date Miguel Worrell MD PCP - General Family Medicine 03/03/21 08/04/22 David Patton MD [address] [place] [address] PCP - General Internal Medicine 08/05/22 11/29/22 Timo Mckeon MD [address] [place] [address] PCP - General Family Medicine 11/30/22 11/25/23 David Patton MD [address] [place] [address] PCP - General Internal Medicine 11/26/23 11/29/23 Timo Mckeon MD [address] [place] [address] PCP - General Family Medicine 12/12/23 Prosper Browne MD #2 [facility] [address] [place] [phone] Consulting Physician General Surgery 03/24/21 Sarath Gonsalez MD #[address] [address] Billboard Installer Cardiovascular Disease - Cardiology 08/11/21 01/30/24 Ally Caraballo MD [address] [place] [address] Consulting Physician Sleep Medicine 08/05/22 [place] [address] [place] [address] Consulting Physician Otolaryngology 08/05/22 Santiago Dasilva MD 4 [facility] [address] [place] [address] Consulting Physician Pulmonary Disease 08/05/22 Yusef Carias MD [address] [place] [address] Consulting Physician Pain Medicine-Pain Management 09/22/22 Viraj Luna MD 4 [facility] [address] [place] [address] Consulting Physician Gastroenterology 10/08/22 Karen Rodriguez, EMPLOYEE COMMUNICATIONS SPECIALIST, CAR REPAIRER HELPER #2 [facility] [address] [place] [address] Nurse Practitioner Advanced Practice Nurse 04/20/23 Deborah Clark RN [place] Nurse Navigator 11/24/23 11/26/23 Dk Friedman, EMPLOYEE COMMUNICATIONS SPECIALIST, CREATIVE SERVICES INTERN [address] [place] [phone] Virtual Advanced Care (VAC) BACK HANGER Advanced Practice Nurse 11/26/23 11/30/23 documented as of this encounter
--- OUTSIDE RECORDS SUMMARY | 2024-04-15 14:15 | XMS_ITS | Encounter Summary ---
Author Organization [facility] Address [address] [place] [address] Phone Care Team Providers Care Machine Gunner Name Role Phone Miguel Worrell MD Primary Care Provider [phone] Prosper Browne MD Unavailable [phone] Sarath Gonsalez MD Unavailable [facility] David Eller MD Primary Care Provider [phone] Ally Caraballo MD Unavailable Jojo Skinner MD Unavailable +[phone] Santiago Dasilva MD Unavailable [phone] Yusef Carias MD Unavailable + [phone] Viraj Luna MD Unavailable +[phone] Timo Mckeon MD Primary Care Provider [phone] Karen Rodriguez APRN, ORTHOPEDIC DENTIST Unavailable + [phone] Deborah Clark RN Unavailable UnavailDk Mendez APRN, DIESEL ENGINE MECHANIC APPRENTICE Unavailable [phone] David Patton MD Primary Care Provider [phone] Timo Mckeon MD Primary Care Provider [phone] Reason for Visit * Reason Comments Medication Refill Encounter Details Date Type Department Care Team (Late st Contact Info) Description 04/11/2022 Refill [facility] - Family [facility] [address] [place] [phone] Miguel Worrell MD [address] [place] [address] Medication Refill Social History Tobacco Use Types Packs/Day Years Used Date Smoking Tobacco: Former Cigarettes Smokeless Tobacco: Never Comments:pack last 3 [...] Coronavirus/COVID-19? Unable to assess 04/09/2022 1:15 PM HISTOTECHNOLOGIST SUPERVISOR documented as of this encounter Miscellaneous Notes * Telephone Encounter - Cara De Los Santos RN - 04/13/2022 8:15 AM HISTOTECHNOLOGIST SUPERVISOR PDMP 02/28/2022 #60 Medication failed the protocol, provider to review and approve the medication order if appropriate. Requested Prescriptions Pending Prescriptions Disp Refills clonazePAM (KlonoPIN) 0.5 MG Tablet [Pharmacy Med Name: CLONAZEPAM 0.5MG TABLET] 60 Tablet 0 Sig: TAKE ONE (1) TABLET BY MOUTH TWO (2) TIMES DAILY. Not Delegated - Clonazepam Protocol Failed - 04/11/2022 11:10 AM Failed - This refill cannot be delegated Passed - Visit with relevant provider in past 12 months or upcoming days Recent Visits Date Type Provider Dept 01/29/22 Office Visit Miguel Worrell MD [facility] 11/18/21 Office Visit Miguel Worrell MD [facility] 10/20/21 Office Visit Jerri Rosa Small, PAC [facility] [place] [place] 10/07/[address] APRN, ORTHOPEDIC DENTIST [facility] [place] 07/15/21 Office Visit Miguel Worrell MD [facility] 07/08/[address] APRN, МАРИЯ [facility] [place] [place] 05/27/[address] APRN, ORTHOPEDIC DENTIST [facility] [place] Showing recent visits within past 365 days and meeting all other requirements Future Appointments Date Type Provider Dept 06/05/22 Appointment Miguel Worrell MD [facility] Showing future appointments within next 90 days and meeting all other requirements OTECHNOLOGIST SUPERVISOR documented in this encounter Plan of Treatment Upcoming Encounters Date Type Department Care Team (Late st Contact Info) Description 04/17/2024 9:00 AM HISTOTECHNOLOGIST SUPERVISOR [facility] [address] [place] [address] Stanislav Maya, ALYSSA [place] 07/04/2024 10:30 AM CDT [facility] [place] [address] [place] [address] Karen Rodriguez APRN, ORTHOPEDIC DENTIST #2 [facility], [facility] [address] [place] [address] documented as of this encounter Visit Diagnoses Diagnosis Generalized anxiety disorder documented in this encounter Additional Health Concerns Infection Onset Date Last Indicated Resolved Time COVID - 19 11/17/2023 11/17/2023 11/17/2023 7:31 PM CDT COVID - 19 12/18/2023 12/18/2023 12/18/2023 1:39 PM CDT COVID - 19 Confirmed 12/18/2023 12/18/2023 024 12:17 AM HISTOTECHNOLOGIST SUPERVISOR documented as of this encounter Care Teams Machine Gunner Relationship Specialty Start Date End Date Miguel Worrell MD PCP - General Family Medicine 03/03/21 08/04/22 David Patton MD [address] [place] [address] PCP - General Internal Medicine 08/05/22 11/29/22 Timo Mckeon MD [address] [place] [address] PCP - General Family Medicine 11/30/22 11/25/23 David Patton MD [address] [place] [address] PCP - General Internal Medicine 11/26/23 11/29/23 Timo Mckeon MD [address] [place] [address] PCP - General Family Medicine 12/12/23 Prosper Browne MD #[address] [phone] Consulting Physician General Surgery 03/24/21 Sarath Gonsalez MD #[address] [address] Bobbin Cleaner Cardiovascular Disease - Cardiology 08/11/21 01/30/24 Ally Caraballo MD [address] [place] [address] Consulting Physician Sleep Medicine 08/05/22 [place] [address] [place] [address] Consulting Physician Otolaryngology 08/05/22 Santiago Dasilva MD 4 [facility] [address] [place] [address] Consulting Physician Pulmonary Disease 08/05/22 Yusef Carias MD [address] [place] [address] Consulting Physician Pain Medicine-Pain Management 09/22/22 Viraj Luna MD [address] [facility] [address] [place] [address] Consulting Physician Gastroenterology 10/08/22 Karen Rodriguez APRN, ORTHOPEDIC DENTIST #2 [facility], [address] [place] [address] Nurse Practitioner Advanced Practice Nurse 04/20/23 Deborah Clark RN [place] Nurse Navigator 11/24/23 11/26/23 Dk Friedman APRN, DIESEL ENGINE MECHANIC APPRENTICE [address] [place] [phone] [facility] ([facility]) RECYCLING MANAGER Advanced Practice Nurse 11/26/23 11/30/23 documented as of this encounter
--- OUTSIDE RECORDS SUMMARY | 2024-04-15 14:15 | XMS_ITS | Encounter Summary ---
Author Organization [facility] Address [address] [place] [address] Phone Care Team Providers Care Sea Foam Kiss Maker Name Role Phone Miguel Worrell MD Primary Care Provider [phone] Prosper Browne MD Unavailable [phone] Sarath Gonsalez MD Unavailable [facility] David Eller MD Primary Care Provider [phone] Ally Caraballo MD Unavailable Jojo Skinner MD Unavailable [phone] Santiago Dasilva MD Unavailable [phone] Yusef Carias MD Unavailable + [phone] Viraj Luna MD Unavailable [phone] Timo Mckeon MD Primary Care Provider [phone] Karen Rodriguez APRN, FLEXOGRAPHIC PRESS SET UP OPERATOR Unavailable + [phone] Deborah Clark RN Unavailable UnavailDk Mendez APRN, GRINDING MILL OPERATOR Unavailable [phone] David Patton MD Primary Care Provider [phone] Timo Mckeon MD Primary Care Provider [phone] Reason for Visit * Reason Comments Medication Refill Encounter Details Date Type Department Care Team (Late st Contact Info) Description 05/23/2021 Refill [facility] - Family [facility] [address] [place] [phone] Miguel Worrell MD [address] [place] [address] Medication Refill Social History Tobacco Use Types [...] suspected to have Coronavirus/COVID-19? No / Unsure 05/26/2021 8:24 AM CDT documented as of this encounter Miscellaneous Notes * Telephone Encounter - Nakita Christine RN - 05/23/2021 11:21 AM CDT PDMP 04/10/21 Medication failed the protocol, provider to review and approve the medication order if appropriate. Requested Prescriptions Pending Prescriptions Disp Refills clonazePAM (KlonoPIN) 0.5 MG Tablet [Pharmacy Med Name: CLONAZEPAM 0.5MG TABLET] 60 Tablet 0 Sig: TAKE ONE (1) TABLET BY MOUTH TWICE DAILY Not Delegated - Clonazepam Protocol Failed - 05/23/2021 10:56 AM Failed - This refill cannot be delegated Passed - Visit with relevant provider in past 12 months or upcoming 90 days Recent Visits Date Type Provider Dept 03/18/21 Office Visit Miguel Worrell MD [facility] 03/10/21 Office Visit Miguel Worrell MD [facility] Showing recent visits within past 365 days and meeting all other requirements Future Appointments Date Type Provider Dept 07/16/21 Appointment Miguel Worrell MD [facility] Showing future appointments within next 90 days and meeting all other requirements documented in this encounter Plan of Treatment Upcoming Encounters Date Type Department Care Team (Late st Contact Info) Description 04/17/2024 9:00 AM STAFFING MANAGER [facility] [address] [place] [address] [place] 07/04/2024 10:30 AM CDT [facility] - [place] [address] [place] [address] Karen Rodriguez APRN, FLEXOGRAPHIC PRESS SET UP OPERATOR #2 [facility], [address] [place] [address] documented as of this encounter Visit Diagnoses [...] 19 Confirmed 12/18/2023 12/18/2023 024 12:17 AM STAFFING MANAGER documented as of this encounter Care Teams Sea Foam Kiss Maker Relationship Specialty Start Date End Date Miguel Worrell MD PCP - General Family Medicine 03/03/21 08/04/22 David Patton MD [address] [place] [address] PCP - General Internal Medicine 08/05/22 11/29/22 Timo Mckeon MD [address] [place] [address] PCP - General Family Medicine 11/30/22 11/25/23 David Patton MD [address] [place] [address] PCP - General Internal Medicine 11/26/23 11/29/23 Timo Mckeon MD [address] [place] [address] PCP - General Family Medicine 12/12/23 Prosper Browne MD #[address] [phone] Consulting Physician General Surgery 03/24/21 Sarath Gonsalez MD #[address] [address] C Web Developer Cardiovascular Disease - Cardiology 08/11/21 01/30/24 Ally Caraballo MD [address] [place] [address] Consulting Physician Sleep Medicine 08/05/22 [place] [address] [place] [address] Consulting Physician Otolaryngology 08/05/22 Santiago Dasilva MD 4 [facility] [address] [address] [place] [address] Consulting Physician Pulmonary Disease 08/05/22 Yusef Carias MD [address] [facility] [place] [address] Consulting Physician Pain Medicine-Pain Management 09/22/22 Viraj Luna MD [address] [facility] [address] [place] [address] Consulting Physician Gastroenterology 10/08/22 Karen Rodriguez APRN, FLEXOGRAPHIC PRESS SET UP OPERATOR #2 [facility], [address] [place] [address] Nurse Practitioner Advanced Practice Nurse 04/20/23 Deborah Clark, WENDY [place] Nurse Navigator 11/24/23 11/26/23 Dk Friedman APRN, GRINDING MILL OPERATOR [address] [place] [phone] [facility] (VAC) RAILROAD DINING CAR STEWARD/STEWARDESS Advanced Practice Nurse 11/26/23 11/30/23 documented as of this encounter
--- OUTSIDE RECORDS SUMMARY | 2024-04-15 14:15 | XMS_ITS | Encounter Summary ---
Author Organization [facility] Address [address] [place] [address] Phone Care Team Providers Care Director Geophysical Laboratory Name Role Phone Miguel Worrell MD Primary Care Provider [phone] Prosper Browne MD Unavailable [phone] Sarath Gonsalez MD [facility]available [facility] David Eller MD Primary Care Provider [phone] Ally Caraballo MD Unavailable Jojo Skinner MD Unavailable [phone] Santiago Dasilva MD Unavailable [phone] Yusef Carias MD Unavailable + [phone] Viraj Luna MD Unavailable [phone] Timo Mckeon MD Primary Care Provider [phone] Karen Rodriguez APRN, DIGITAL STRATEGY DIRECTOR Unavailable + [phone] Deborah Clark RN Unavailable UnavailDk Mendez APRN, COMPUTER BUILDER Unavailable [phone] David Patton MD Primary Care Provider [phone] Timo Mckeon MD Primary Care Provider [phone] Reason for Visit * Reason Comments Medication Refill Encounter Details Date Type Department Care Team (Late st Contact Info) Description 06/24/2021 Refill [facility] - Family [facility] [address] [place] [phone] Miguel Worrell MD [address] [place] [address] Medication Refill Social History Tobacco Use Types [...] Telephone Encounter - Ginny Sarabia RN - 06/24/2021 1:01 PM CDT PDMP 05/23/21 Medication failed the protocol, provider to review and approve the medication order if appropriate. Requested Prescriptions Pending Prescriptions Disp Refills clonazePAM (KlonoPIN) 0.5 MG Tablet [Pharmacy Med Name: CLONAZEPAM 0.5MG TABLET] 60 Tablet 0 Sig: TAKE ONE (1) TABLET BY MOUTH TWICE DAILY Not Delegated - Clonazepam Protocol Failed - 06/24/2021 10:43 AM Failed - This refill cannot be delegated Passed - Visit with relevant provider in past 12 months or upcoming 90 days Recent Visits Date Type Provider Dept 05/27/[address] APRN, DIGITAL STRATEGY DIRECTOR [facility] [place] 03/18/21 Office Visit Miguel Worrell MD [facility] 03/10/21 Office Visit Miguel Worrell MD [facility] Showing recent visits within past 365 days and meeting all other requirements Future Appointments Date Type Provider Dept 07/15/21 Appointment Miguel Worrell MD [facility] Showing future appointments within next 90 days and meeting all other requirements atorvastatin (LIPITOR) 20 MG Tablet [Pharmacy Med Name: ATORVASTATIN CALCIUM 20MG TABLET] 30 Tablet0 Sig: TAKE ONE (1) TABLET BY MOUTH DAILY. Hmg CoA Reductase Inhibitors Protocol Passed - 06/24/2021 10:43 AM Passed - Visit with relevant provider in past 12 months or upcoming 90 days Recent Visits Date Type Provider Dept 05/27/[address] APRN, МАРИЯ [facility] [place] 03/18/21 Office Visit Miguel Worrell MD [facility] 03/10/21 Office Visit Miguel Worrell MD [facility] Showing recent visits within past 365 days and meeting all other requirements Future Appointments Date Type Provider Dept 07/15/21 Appointment Miguel Worrell MD [facility] Showing [...] Status 03/01/2021 136 (H) <130 mg/dL Final documented in this encounter Plan of Treatment Upcoming Encounters Date Type Department Care Team (Late st Contact Info) Description 04/17/2024 9:00 AM STRATEGIC MARKETING SPECIALIST [facility] [address] [place] [address] [place] 07/04/2024 10:30 AM CDT Office Visit [facility] - [facility]iology - [place] [address] [place] [address] Karen Rodriguez, TREASURY REPRESENTATIVE, DIGITAL STRATEGY DIRECTOR #2 [facility], [address] [place] [address] documented as of this encounter Visit Diagnoses [...] 19 Confirmed 12/18/2023 12/18/2023 024 12:17 AM STRATEGIC MARKETING SPECIALIST documented as of this encounter Care Teams Director Geophysical Laboratory Relationship Specialty Start Date End Date Miguel Worrell MD PCP - General Family Medicine 03/03/21 08/04/22 David Patton MD [address] [place] [address] PCP - General Internal Medicine 08/05/22 11/29/22 Timo Mckeon MD [address] [place] [address] PCP - General Family Medicine 11/30/22 11/25/23 David Patton MD [address] [place] [address] PCP - General Internal Medicine 11/26/23 11/29/23 Timo Mckeon MD [address] [place] [phone] PCP - General Family Medicine 12/12/23 Prosper Browne MD #[address] [address] [address] Consulting Physician General Surgery 03/24/21 Sarath Gonsalez MD #[address] [address] Pump And Blower Operator Cardiovascular Disease - Cardiology 08/11/21 01/30/24 Ally Caraballo MD [address] [place] [address] Consulting Physician Sleep Medicine 08/05/22 [place] [address] [place] [address] Consulting Physician Otolaryngology 08/05/22 Santiago Dasilva MD [address] [place] [address] Consulting Physician Pulmonary Disease 08/05/22 Yusef Carias MD [address] [place] [address] Consulting Physician Pain Medicine-Pain Management 09/22/22 Viraj Luna MD 4 [facility] [address] [place] [address] Consulting Physician Gastroenterology 10/08/22 Karen Rodriguez APRN, DIGITAL STRATEGY DIRECTOR #2 [facility], [address] [place] [address] Nurse Practitioner Advanced Practice Nurse 04/20/23 Deborah Clark, WENDY [place] Nurse Navigator 11/24/23 11/26/23 Dk Friedman APRN, COMPUTER BUILDER [address] [place] [phone] [facility] (VAC) TOOLMAN Advanced Practice Nurse 11/26/23 11/30/23 documented as of this encounter
--- OUTSIDE RECORDS SUMMARY | 2024-04-15 14:15 | XMS_ITS | Encounter Summary ---
Author Organization [facility] Address [address] [place] [address] Care Team Providers Care Metal Caster Name Role Phone Miguel Worrell MD Primary Care Provider [phone] Juancho Luciano MD Unavailable [phone] Saira Mcintosh PT Unavailable Unavailable David Patton MD Primary Care Provider + Timo Mckeon MD Primary Care Provider [phone] Reason for Visit * Reason Onset Date Comments Scheduling Appointments 08/05/2021 Reminder call for esophagram on 08/06/21. Encounter Details Date Type Department Care Team (Late st Contact Info) Description 08/05/2021 Telephone [facility] [address] [place] [address] Janna Dewitt RT Scheduling Appointments (Reminder call for esophagram on 08/06/21. ) Social History Tobacco Use Types Packs/Day Years Used Date Smoking Tobacco: Every Day Cigarettes 1 52.2 Started: 1969; Last attempted to quit: 05/24/2020 Smokeless Tobacco: Never Comments:used to smoke 3pk/d ay for 25-30 years Alcohol Use Standard Drinks/Week Comments Not Currently 0 (1 standard drink = 0.6 oz pur e alcohol) AUDIT-C Answer Date Recorded Q1: How often do you have a drink containing alc ohol? Never 06/25/2021 Q2: How many drinks containi ng alcohol do you have on a typical day when you are drinking? 1 or 2 06/25/2021 Q3: How often do you have six or more drinks on one occasion? Never 06/25/2021 PHQ-2 Answer Date Recorded PHQ-2 Total Score (If total score is 3 or more points, staff should administer the PHQ-9) 0 07/14/2021 Comments No Sex and Gender Information Value Date Recorded Sex Assigned at Not on file Legal Sex Female 1:00 AM ASSOCIATE PROFESSOR OF PHILOSOPHY Gender Identity Not on file Sexual Orientation Not on file documented as of this encounter Plan of Treatment Not on file documented as of this encounter Visit Diagnoses Not on filedocumented in this encounter Care Teams Metal Caster Relationship Specialty Start Date End Date Miguel Worrell MD [address] [place] [address] [address] PCP - General 03/22/21 07/30/22 David Patton MD [address] [place] [address] PCP - General Internal Medicine 07/31/22 12/15/23 Timo Mckeon MD [address] [place] [address] PCP - General Family Practice 12/16/23 Juancho Luciano MD [address] [place] [address] [address] Referring Physician Family Medicine 06/30/21 Saira Mcintosh PT Physical Therapist Physical Therapy 07/01/21 documented as of this encounter
--- OUTSIDE RECORDS SUMMARY | 2024-04-15 14:15 | XMS_ITS | Encounter Summary ---
Author Organization [facility] Address [address] [place] [address] Phone Care Team Providers Care Senior Payroll Administrator Name Role Phone Miguel Worrell MD Primary Care Provider [phone] Prosper Browne MD Unavailable [phone] Sarath Gonsalez MD Unavailable [facility] David Eller MD Primary Care Provider [phone] Ally Caraballo MD Unavailable Jojo Skinner MD Unavailable [phone] Santiago Dasilva MD Unavailable [phone] Yusef Carias MD Unavailable + [phone] Viraj Luna MD Unavailable [phone] Timo Mckeon MD Primary Care Provider [phone] Karen Rodriguez APRN, FACTORY LABORER Unavailable + [phone] Deborah Clark RN Unavailable UnavailDk Mendez APRN, FIRE FIGHTER AIRPORT Unavailable [phone] David Patton MD Primary Care Provider [phone] Timo Mckeon MD Primary Care Provider [phone] Reason for Visit * Reason Comments Medication Refill Encounter Details Date Type Department Care Team (Late st Contact Info) Description 04/07/2021 Refill [facility] [address] [place] [address] Miguel Worrell MD [address] [place] [address] Medication Refill Social History Tobacco Use Types [...] of Binge Drinking Not on file 12/24 Comments No Sex and Gender Information Value Date Recorded Sex Assigned at Female 11/27/2022 1:29 AM CDT Legal Sex Female 11:20 PM CDT Gender Identity Female 11/27/2022 1:29 AM CDT Sexual Orientation Not on file COVID-19 Exposure Response Date Recorded In the last month, have you been in contact with someone who was confirmed or suspected to have Coronavirus / COVID-19? No / Unsure 03/24/2021 12:47 PM SCHEDULE PLANNING MANAGER documented as of this encounter Miscellaneous Notes * Telephone Encounter - Faina Saeed MA - 04/09/2021 9:49 AM SCHEDULE PLANNING MANAGER Patient would like to know if Dr. Worrell will sign off on her Clonazepam refill request as soon as possible . Patient stated she had a bad dream last night and is unable to shake the dream . She stated its putting her in PTSD mode . Script pended DULE PLANNING MANAGER * Telephone Encounter - Nakita Christine RN - 04/08/2021 9:11 AM CST NPT last month - new Rx for you - last fill date 03/07/[address] Luciano Medication failed the protocol, provider to review and approve the medication order if appropriate. Requested Prescriptions Pending Prescriptions Disp Refills clonazePAM (KlonoPIN) 0.5 MG Tablet [Pharmacy Med Name: CLONAZEPAM 0.5 MG TAB 0.5 Tablet] 60 Tablet0 Sig: TAKE 1 TABLET (0.5 MG TOTAL) BY MOUTH 2 (TWO) TIMES A DAY Not Delegated - Clonazepam Protocol Failed - 04/07/2021 10:32 AM Failed - This refill cannot be delegated Passed - Visit with relevant provider in past 12 months or upcoming 90 days Recent Visits Date Type Provider Dept 03/18/21 Office Visit Miguel Worrell MD [facility] 03/10/21 Office Visit Miguel Worrell MD [facility] [place] Showing recent visits within past 365 days and meeting all other requirements Future Appointments No visits were found meeting these conditions. Showing future appointments within next 90 days and meeting all other requirements DULE PLANNING MANAGER documented in this encounter Plan of Treatment Upcoming Encounters Date Type Department Care Team (Late st Contact Info) Description 04/17/2024 9:00 AM SCHEDULE PLANNING MANAGER [facility] [address] [place] [address] [place] 07/04/2024 10:30 AM CDT [facility] [place] [address] [place] [address] Karen Rodriguez APRN, FACTORY LABORER [address]2 [facility], [address] [place] [address] documented as of this encounter Visit Diagnoses Diagnosis Generalized anxiety disorder- Primary documented in this encounter Additional Health Concerns Infection Onset Date Last Indicated Resolved Time COVID - 19 10/11/2021 10/11/2021 10/16/2021 8:04 AM CDT COVID - 19 12/11/2021 12/11/2021 12/21/2021 12:1 6 AM CDT COVID - 19 11/17/2023 11/17/2023 11/17/2023 7:31 PM CDT COVID - 19 12/18/2023 12/18/2023 12/18/2023 1:39 PM CDT COVID - 19 Confirmed 12/18/2023 12/18/2023 024 12:17 AM SCHEDULE PLANNING MANAGER documented as of this encounter Care Teams Senior Payroll Administrator Relationship Specialty Start Date End Date Miguel Worrell MD PCP - General Family Medicine 03/03/21 08/04/22 David Patton MD [address] [place] [address] PCP - General Internal Medicine 08/05/22 11/29/22 Timo Mckeon MD [address] [place] [address] PCP - General Family Medicine 11/30/22 11/25/23 David Patton MD [address] [place] [address] PCP - General Internal Medicine 11/26/23 11/29/23 Timo Mckeon MD [address] [place] [phone] PCP - General Family Medicine 12/12/23 Prosper Browne MD #[address] [phone] Consulting Physician General Surgery 03/24/21 Sarath Gonsalez MD #[address] [address] Chainsaw Mechanic Cardiovascular Disease - Cardiology 08/11/21 01/30/24 Ally Caraballo MD [address] [place] [address] Consulting Physician Sleep Medicine 08/05/22 [place] [address] [place] [address] Consulting Physician Otolaryngology 08/05/22 Santiago Dasilva MD [address] [place] [address] [address] [place] [address] Consulting Physician Pulmonary Disease 08/05/22 Yusef Carias MD [address] [place] [address] Consulting Physician Pain Medicine-Pain Management 09/22/22 Viraj Luna MD [address] [place] [address] [address] [place] [address] Consulting Physician Gastroenterology 10/08/22 Karen Rodriguez, LEGAL SECRETARY RECEPTIONIST, FACTORY LABORER [address] [facility], [address] [place] [address] Nurse Practitioner Advanced Practice Nurse 04/20/23 Deborah Clark RN [place] Nurse Navigator 11/24/23 11/26/23 Dk Friedman APRN, [employer]RE [employer]HTER [employer] [address] [place] [phone] [facility] ([facility]) FLIGHT ENGINEER INSPECTOR Advanced Practice Nurse 11/26/23 11/30/23 documented as of this encounter
--- OUTSIDE RECORDS SUMMARY | 2024-04-15 14:15 | XMS_ITS | Encounter Summary ---
Author Organization [facility] Address [address] [place] [address] Phone Care Team Providers Care Material Damage Adjuster Name Role Phone Miguel Worrell MD Primary Care Provider [phone] Prosper Browne MD Unavailable [phone] Sarath Gonsalez MD Unavailable [facility] David Eller MD Primary Care Provider [phone] Ally Caraballo MD Unavailable Jojo Skinner MD Unavailable [phone] Santiago Dasilva MD Unavailable [phone] Yusef Carias MD Unavailable + [phone] Viraj Luna MD Unavailable [phone] Timo Mckeon MD Primary Care Provider [phone] Karen Rodriguez APRN, PEDIGREE RESEARCHER Unavailable + [phone] Deborah Clark RN Unavailable UnavailDk Mendez APRN, UNLEAVENED DOUGH MIXER Unavailable [phone] David Patton MD Primary Care Provider [phone] Timo Mckeon MD Primary Care Provider [phone] Reason for Visit * Reason Comments Medication Refill Encounter Details Date Type Department Care Team (Late st Contact Info) Description 01/12/2022 Refill [facility] [address] [place] [phone] Miguel Worrell MD [address] [place] [address] Medication Refill Social History Tobacco Use Types [...] suspected to have Coronavirus/COVID-19? No / Unsure 01/02/2022 10:14 AM CREDIT ADMINISTRATION OFFICER documented as of this encounter Miscellaneous Notes * Telephone Encounter - Cara De Los Santos RN - 01/12/2022 10:57 AM CREDIT ADMINISTRATION OFFICER Medication failed the protocol, provider to review and approve the medication order if appropriate. Requested Prescriptions Pending Prescriptions Disp Refills Rizatriptan Benzoate 10 MG Tablet [Pharmacy Med Name: RIZATRIPTAN BENZOATE 10MG TABLET] 10 Tablet 0 Sig: TAKE ONE (1) TABLET BY MOUTH NEEDED FOR HEADACHES (NOT TO EXCEED TWO (2) TABLETS DAILY). MAY REPEAT IN ONE (1) HOURS IF NEEDED. Not Delegated - Serotonin Agonists (Oral and Nasal) Protocol Failed - 01/12/2022 10:34 AM Failed - This refill cannot be delegated; check utilization no more than 9 doses per month Passed - Visit with relevant provider in past 24 months or upcoming 90 days Recent Visits Date Type Provider Dept 11/18/21 Office Visit Miguel Worrell MD [facility] 10/20/21 Office Visit Rosa Guthrie, [facility] [place] [place] 10/07/[address] APRN, [facility] 07/15/21 Office Visit Miguel Worrell, MD [facility] 07/08/[address] APRN, [facility] [place] 05/27/[address] APRN, [facility] 03/18/21 Office Visit Miguel Worrell, MD [facility] [place] 03/10/21 Office Visit Miguel Worrell MD [facility] Showing recent visits within past 730 days and meeting all other requirements Future Appointments Date Type Provider Dept 03/20/22 Appointment Miguel Worrell MD [facility] Showing future appointments within next 90 days and meeting all other requirements Passed - No documented Systolic BP > 200 within past 3 months Passed - Number of active Serotonergic medications less than 3 cyclobenzaprine (FLEXERIL) 10 MG Tablet [Pharmacy Med Name: CYCLOBENZAPRINE HYDROCHLORIDE 10MG TABLET] 90 Tablet 0 Sig: TAKE ONE (1) TABLET BY MOUTH THREE (3) TIMES DAILY NEEDED FOR MUSCLE SPASMS FOR UP TO 30 DAYS. Not Delegated - Muscle Relaxants Protocol Failed - 01/12/2022 10:34 AM Failed - This refill cannot be delegated Passed - Visit with relevant provider in past 12 months or upcoming 90 days Recent Visits Date Type Provider Dept 11/18/21 Office Visit Miguel Worrell MD [facility] 10/20/21 Office Visit Rosa Guthrie, PAC [facility] 10/07/[address] APRN, [facility] [place] 07/15/21 Office Visit Miguel Worrell MD [facility] 07/08/[address] APRN, [facility] [place] [place] 05/27/[address] APRN, [facility] [place] [place] 03/18/21 Office Visit Miguel Worrell MD [facility] 03/10/21 Office Visit Miguel Worrell MD [facility] Showing recent visits within past 365 days and meeting all other requirements Future Appointments Date Type Provider Dept 03/20/22 Appointment Miguel Worrell MD [facility] Showing future appointments within next 90 days and meeting all other requirements Refused Prescriptions Disp Refills PARoxetine (PAXIL) 40 MG Tablet [Pharmacy Med Name: PAROXETINE HCL 40MG TABLET] 90 Tablet 1 Sig: TAKE ONE (1) TABLET BY MOUTH DAILY. SSRI (6 Month Refill Only) Protocol Passed - 01/12/2022 10:34 AM Passed - Visit with relevant provider in past 6 months or upcoming 90 days Recent Visits Date Type Provider Dept 11/18/21 Office Visit Miguel Worrell MD [facility] 10/20/21 Office Visit Rosa Guthrie, [facility] [place] [place] 10/07/[address] APRN, PEDIGREE RESEARCHER [facility] [place] [place] 07/15/21 Office Visit Miguel Worrell MD [facility] [place] [place] Showing recent visits within past 182 days and meeting all other requirements Future Appointments Date Type Provider Dept 03/20/22 Appointment Miguel Worrell MD [facility] Showing future appointments within next 90 days and meeting all other requirements Passed - Patient has established therapy with SSRI for at least 6 months Passed - Has an encounter in the past 6 months with a depression, anxiety, adjustment disorder, OCD, or PTSD visit diagnosis IT ADMINISTRATION OFFICER documented in this encounter Plan of Treatment Upcoming Encounters Date Type Department Care Team (Late st Contact Info) Description 04/17/2024 9:00 AM CREDIT ADMINISTRATION OFFICER [facility] [address] [place] [phone] [place] 07/04/2024 10:30 AM CDT Office Visit [facility] - [facility] - [place] [address] [place] [address] Karen Rodriguez, CUSTOMER SERVICE CORRESPONDENCE CLERK, PEDIGREE RESEARCHER #2 [facility], [address] [place] [address] documented as of this encounter Visit Diagnoses Not on filedocumented in this encounter Additional Health Concerns Infection Onset Date Last Indicated Resolved Time COVID - 19 11/17/2023 11/17/2023 11/17/2023 7:31 PM CDT COVID - 19 12/18/2023 12/18/2023 12/18/2023 1:39 PM CDT COVID - 19 Confirmed 12/18/2023 12/18/2023 024 12:17 AM CREDIT ADMINISTRATION OFFICER documented as of this encounter Care Teams Material Damage Adjuster Relationship Specialty Start Date End Date Miguel Worrell MD PCP - General Family Medicine 03/03/21 08/04/22 David Patton MD [address] [place] [address] PCP - General Internal Medicine 08/05/22 11/29/22 Timo Mckeon MD [address] [place] [address] PCP - General Family Medicine 11/30/22 11/25/23 David Patton MD [address] [place] [address] PCP - General Internal Medicine 11/26/23 11/29/23 Timo Mckeon MD [address] [place] [phone] PCP - General Family Medicine 12/12/23 Prosper Browne MD [address] [facility] [place] [address] [place] [address] Consulting Physician General Surgery 03/24/21 Sarath Gonsalez MD [address] [facility] [address] [place] [address] Boiler Control Technician Cardiovascular Disease - Cardiology 08/11/21 01/30/24 Ally Caraballo MD [address] [place] [address] Consulting Physician Sleep Medicine 08/05/22 [place] [address] [place] [address] Consulting Physician Otolaryngology 08/05/22 Santiago Dasilva MD [address] [facility] [place] [address] [place] [address] Consulting Physician Pulmonary Disease 08/05/22 Yusef Carias MD [address] [place], [place] [id number] Consulting Physician Pain Medicine-Pain Management 09/22/22 Viraj Luna MD [address] [facility] [address] [place] [address] Consulting Physician Gastroenterology 10/08/22 Karen Rodriguez, CUSTOMER SERVICE CORRESPONDENCE CLERK, PEDIGREE RESEARCHER [address] [facility] [address] [facility] [address] [place] [address] Nurse Practitioner Advanced Practice Nurse 04/20/23 Deborah Clark, RN [place] Nurse Navigator 11/24/23 11/26/23 Dk Friedman APRN, UNLEAVENED DOUGH MIXER [address] [place] [address] [facility] ([facility]) LAND SURVEY TECHNICIAN Advanced Practice Nurse 11/26/23 11/30/23 documented as of this encounter
--- OUTSIDE RECORDS SUMMARY | 2024-04-15 14:15 | XMS_ITS | Encounter Summary ---
Author Organization [facility] Address [address] [place] [address] Phone Care Team Providers Care Health Care / Medical Job Titles Name Role Phone Miguel Worrell MD Primary Care Provider [phone] Prosper Browne MD Unavailable [phone] Sarath Gonsalez MD Unavailable [facility] David Eller MD Primary Care Provider [phone] Ally Caraballo MD Unavailable Jojo Skinner MD Unavailable [phone] Santiago Dasilva MD Unavailable [phone] Yusef Carias MD Unavailable + [phone] Viraj Luna MD Unavailable [phone] Timo Mckeon MD Primary Care Provider [phone] Karen Rodriguez APRN, HEAD BUYER TOBACCO Unavailable + [phone] Deborah Clark RN Unavailable UnavailDk Mendez APRN, TOOTH CUTTER PINION Unavailable [phone] David Patton MD Primary Care Provider [phone] Timo Mckeon MD Primary Care Provider [phone] Reason for Visit * Reason Onset Date Comments Pain Management 04/29/2021 Encounter Details Date Type Department Care Team (Late st Contact Info) Description 04/29/2021 Telephone [facility] [address] [place] [address] Miguel Worrell MD [address] [place] [address] Pain Management Social History Tobacco Use Types Packs/Day Years [...] have Coronavirus / COVID-19? No / Unsure 04/29/2021 8:37 AM FISH HOUSE WORKER documented as of this encounter Miscellaneous Notes * Telephone Encounter - Samara Hardin, RN - 05/12/2021 1:56 PM CDT Called and spoke with patient to follow up per PCP. Patient had surgery on 05/08/21. States hurtingpretty good pain in ear on scale 9 out of 10. Sates she can hear better. Taking 1-2 pills every 6 hours, states she usually takes about 3 pills a day. States she will be out tonight. States if PCP wants to help or not help her with pain medicine she is ok either way' States if PCP wants to refill to send to [facility] in [place], says after this she should be better. * Telephone Encounter - Miguel Worrell MD - 05/12/2021 1:00 PM CDT Please call and check on her when you have a chance and see how she is doing after the surgery. Thepain must not be that bad as he did not give her much and from what I can tell it should be pretty good. * Telephone Encounter - Sharmaine Flores RN - 05/08/2021 9:57 AM CDT Spoke with patient. She said the surgery is tomorrow. She said that the surgeon is going to prescribe her 15 [place] tabs for after surgery but that is all he will give. * Telephone Encounter - Miguel Worrell MD - 05/07/2021 8:02 PM CDT I will send a few tabs for her to take after surgery but I am not doing pain management. I do not know why these people do surgery and then think no one needs meds. I am going to remember to look at his notes to make sure that he is not prescribing anything as it does not say in his notes that the pcp needs to prescribe these. * Telephone Encounter - Samara Hardin RN - 05/06/2021 3:53 PM CDT Called patient to clarify how much Atorvastatin she is taking states 4 tablets daily, pharmacy is wanting Provider to clarify.PCP clarify that 20 mg daily is correct. Sherin briones asking about if PCP will send in some pain medicine for her upcoming surgery this Wednesday at [facility] states surgeon will not prescribe her anything, she is tearful. Patient last script for hydrocodone was 03/16/21 12 tablets, asked if she did ok with this states yes she can take it. Wants sent to [facility] in [place]. Please advise. * Telephone Encounter - Samara Hardin RN - 05/01/2021 10:07 AM CST Called patient and spoke with her regarding she has surgery on 05/09/21 and Surgeon states he will not give her anything for pain and that she would have to f/u with her PCP/and or pain management. Does not see Pain Management Dr. Patel until 05/14/21, f/u on depression she is tired all the time and still having migraines. Per Dr. Worrell believe that she just started on paxil as she did not think that her other antidepressant wasn't working. Not sure that it has even been a month yet. Give it a little time. It is not going to be perfect at first. Also I can help if she needs something after her surgery but I am not surehow much pain meds she will need. Otherwise she is needing to wait to see Dr. Patel. She is on clona zepam and I do not want to give her chronic pain meds when she is taking this. I do know that theseheadaches have been going on a while and I looked at the old neurology notes and she has tried manythings and nothing has ever helped so I am not sure what I can do. I can give her a referral to seeneurology but it might be from the deg disc disease in her neck. : Pt states she threw away her Paxil, Clonazepam and Meloxicam. The only thing she takes now is : Ibuprofen, Tylenol 3-5 times a day, ASA 81 mg, Atorvastatin and Ropinirole.States she ' is a mess now and pt is crying on phone, as they have just found a mass in her breast has follow up Mammogram/ Ultrasound at [facility].Asked pt if she wanted to schedule office visit with PCP. No availability soon. Michael ramos is PCP block at 415 pm on 05/08/21 can I use but it's 15 minutes? HOUSE WORKER * Telephone Encounter - Miguel Worrell MD - 04/30/2021 8:33 PM CST I bleieve that she just started on paxil as she did not think that her other antidepressant wasn't working. Not sure that it has even been a month yet. Give it a little time. It is not going to be perfect at first. Also I can help if she needs something after her surgery but I am not sure how much pain meds she will need. Otherwise she is needing to wait to see Dr. Patel. She is on clonazepam Karen do not want to give her chronic pain meds when she is taking this. I do know that these headacheshave been going on a while and I looked at the old neurology notes and she has tried many things and nothing has ever helped so I am not sure what I can do. I can give her a referral to see neurologybut it might be from the deg disc disease in her neck. HOUSE WORKER * Telephone Encounter - Marry Moeller Jesus - 04/29/2021 1:28 PM CST 1) Patient calling because she has an upcoming right ear surgery with Dr Ervin in [facility] on 05/09/21, but he has already said he refuses to prescribe anything for pain management post surgery. He said he would need to have a pain management doctor in place to do this. However, she is not able to get into see her pain specialist (Dr Patel) until 05/14/21 unless there is a cancellation, but she highly doubts there will be. So, she was advised to talk to Dr Worrell about pain medication in the interim. Says Dr Worrell had prescribed [place] in the past and is wondering if she would send in more of that to get there through until able to see pain doctor. 2) Also, she says is depressed and sleeps all the time. Says the current regimen she has makes her tired and all she does is sleep. 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 3) Lastly, she needs refills on atorvastatin and ropinirole. 4) Wants Dr Worrell to know her migraines continue. I am not sure how to proceed. Says she has only seen Dr Worrell before. I am reluctant to schedule withanother provider as it seems like she has many needs and do not know if would be appropriate or not. PCP does not have any openings except for 15 minute PCP block slots prior to patient's scheduled surgery on 05/09 HOUSE WORKER documented in this encounter Plan of Treatment Upcoming Encounters Date Type Department Care Team (Late st Contact Info) Description 04/17/2024 9:00 AM FISH HOUSE WORKER OCAC [facility] [address] [place] [address] [place] 07/04/2024 10:30 AM CDT Office Visit [facility] - [place] [address] [place] [address] Karen Rodriguez APRN, HEAD BUYER TOBACCO #2 [facility], [address] [place] [address] documented as of this encounter Visit Diagnoses Diagnosis Cervical spondylosis Cervical spondylosis without myelopathy documented in this encounter Additional Health Concerns Infection Onset Date Last Indicated Resolved Time COVID - 19 10/11/2021 10/11/2021 10/16/2021 8:04 AM CDT COVID - 19 12/11/2021 12/11/2021 12/21/2021 12:1 6 AM CDT COVID - 19 11/17/2023 11/17/2023 11/17/2023 7:31 PM CDT COVID - 19 12/18/2023 12/18/2023 12/18/2023 1:39 PM CDT COVID - 19 Confirmed 12/18/2023 12/18/2023 024 12:17 AM FISH HOUSE WORKER documented as of this encounter Care Teams Health Care / Medical Job Titles Relationship Specialty Start Date End Date Miguel Worrell MD PCP - General Family Medicine 03/03/21 08/04/22 David Patton MD [address] [place] [address] PCP - General Internal Medicine 08/05/22 11/29/22 Timo Mckeon MD [address] [place] [address] PCP - General Family Medicine 11/30/22 11/25/23 David Patton MD [address] [place] [address] PCP - General Internal Medicine 11/26/23 11/29/23 Timo Mckeon MD [address] [place] [phone] PCP - General Family Medicine 12/12/23 Prosper Browne MD #[address] [address] Consulting Physician General Surgery 03/24/21 Sarath Gonsalez MD #[address] [address] Canal Boat Operator Cardiovascular Disease - Cardiology 08/11/21 01/30/24 Ally Caraballo MD [address] [place] [address] Consulting Physician Sleep Medicine 08/05/22 [place] [address] [place] [address] Consulting Physician Otolaryngology 08/05/22 Santiago Dasilva MD [address] [place] [address] [address] [place] [address] Consulting Physician Pulmonary Disease 08/05/22 Yusef Carias MD [address] [place] [address] [place] [address] Consulting Physician Pain Medicine-Pain Management 09/22/22 Viraj Luna MD [address] [place] [address] [address] [place] [address] Consulting Physician Gastroenterology 10/08/22 Karen Rodriguez APRN, HEAD BUYER TOBACCO #2 [facility], [address] [place] [address] Nurse Practitioner Advanced Practice Nurse 04/20/23 Deborah Clark, RN [place] Nurse Navigator 11/24/23 11/26/23 Dk Friedman APRN, TOOTH CUTTER PINION [address] [place] [address] [facility] ([facility]) VP OF MARKETING Advanced Practice Nurse 11/26/23 11/30/23 documented as of this encounter
--- OUTSIDE RECORDS SUMMARY | 2024-04-15 14:15 | XMS_ITS | Encounter Summary ---
Author Organization [facility] Address [address] [place] [address] Phone Care Team Providers Care Automated Logistics Specialist Name Role Phone Miguel Worrell MD Primary Care Provider [phone] Prosper Browne MD Unavailable [phone] Sarath Gonsalez MD [facility]available [facility] David Eller MD Primary Care Provider [phone] Ally Caraballo MD Unavailable Jojo Skinner MD Unavailable [phone] Santiago Dasilva MD Unavailable [phone] Yusef Carias MD Unavailable + [phone] Viraj Luna MD Unavailable [phone] Timo Mckeon MD Primary Care Provider [phone] Karen Rodriguez APRN, MANUFACTURING MAINTENANCE MECHANIC Unavailable + [phone] Deborah Clark RN Unavailable UnavailDk Mendez APRN, SUSTAINABLE AGRICULTURE FACULTY Unavailable [phone] David Patton MD Primary Care Provider [phone] Timo Mckeon MD Primary Care Provider [phone] Reason for Visit * Reason Comments Medication Refill Encounter Details Date Type Department Care Team (Late st Contact Info) Description 03/25/2022 Refill [facility] - Family Medicine - [place] [address] [place] [phone] Miguel Worrell MD [address] [place] [address] Medication Refill Social History Tobacco Use Types [...] Telephone Encounter - Sharmaine Flores RN - 03/25/2022 11:21 AM CST Medication failed the protocol, provider to [...] Agonists (Oral and Nasal) Protocol Failed - 03/25/2022 10:50 AM Failed - This refill cannot be delegated; check utilization no more than 9 doses per month Passed - Visit with relevant provider in past 24 months or upcoming 90 days Recent Visits Date Type Provider Dept 01/29/22 Office Visit Miguel Worrell MD [facility] 11/18/21 Office Visit Miguel Worrell MD [facility] 10/20/21 Office Visit Delbertgaby Rosa Small, [facility] [place] 10/07/[address] APRN, МАРИЯ [facility] [place] 07/15/21 Office Visit Miguel Worrell, [facility] 07/08/[address] APRN, МАРИЯ [facility] [place] 05/27/[address] APRN, МАРИЯ [facility] [place] 03/18/21 Office Visit Miguel Worrell MD [facility] 03/10/21 [facility] Showing recent visits within past 730 days and meeting all other requirements Future Appointments Date Type Provider Dept 06/05/22 Appointment Miguel Worrell MD [facility] Showing future appointments within next 90 days and meeting all other requirements Passed - No documented Systolic BP > 200 within past 3 months Passed - Number of active Serotonergic medications less than 3 NGER ASSEMBLER documented in this encounter Plan of Treatment Upcoming Encounters Date Type Department Care Team (Late st Contact Info) Description 04/17/2024 9:00 AM ARRANGER ASSEMBLER OCAC [facility] [address] [place] [address] Stanislav Maya, [place] 07/04/2024 10:30 AM CDT [facility] - [place] [address] [place] [address] Karen Rodriguez APRN, MANUFACTURING MAINTENANCE MECHANIC #2 [facility] [address] [place] [address] documented as of this encounter Visit Diagnoses Not on filedocumented in this encounter Additional Health Concerns Infection Onset Date Last Indicated Resolved Time COVID - 19 11/17/2023 11/17/2023 11/17/2023 7:31 PM CDT COVID - 19 12/18/2023 12/18/2023 12/18/2023 1:39 PM CDT COVID - 19 Confirmed 12/18/2023 12/18/2023 024 12:17 AM ARRANGER ASSEMBLER documented as of this encounter Care Teams Automated Logistics Specialist Relationship Specialty Start Date End Date Miguel Worrell MD PCP - General Family Medicine 03/03/21 08/04/22 David Patton MD [address] [place] [address] PCP - General Internal Medicine 08/05/22 11/29/22 Timo Mckeon MD [address] [place] [address] PCP - General Family Medicine 11/30/22 11/25/23 David Patton MD [address] [place] [address] PCP - General Internal Medicine 11/26/23 11/29/23 Timo Mckeon MD [address] [place] [address] PCP - General Family Medicine 12/12/23 Prosper Browne MD #2 [facility] [address] [place] [address] Consulting Physician General Surgery 03/24/21 Sarath Gonsalez MD #2 [facility] [address] [place] [address] Sausage Wrapper Cardiovascular Disease - Cardiology 08/11/21 01/30/24 Ally Caraballo MD [address] [place] [address] Consulting Physician Sleep Medicine 08/05/22 [place] [address] [place] [address] Consulting Physician Otolaryngology 08/05/22 Santiago Dasilva MD [address] [facility] [address] [place] [address] Consulting Physician Pulmonary Disease 08/05/22 Yusef Carias MD [address] [place] [address] Consulting Physician Pain Medicine-Pain Management 09/22/22 Viraj Luna MD [address] [facility] [address] [place] [address] Consulting Physician Gastroenterology 10/08/22 Karen Rodriguez APRN, MANUFACTURING MAINTENANCE MECHANIC #2 [facility], [address] [place] [address] Nurse Practitioner Advanced Practice Nurse 04/20/23 Deborah Clark RN [place] Nurse Navigator 11/24/23 11/26/23 Dk Friedman APRN, SUSTAINABLE AGRICULTURE FACULTY [address] [place] [address] [facility] ([facility]) CORPORATE LOGISTICS MANAGER Advanced Practice Nurse 11/26/23 11/30/23 documented as of this encounter
--- OUTSIDE RECORDS SUMMARY | 2024-04-15 14:15 | XMS_ITS | Clinical Summary ---
Author Organization [email or web address] Address [address] [place] [address] Care Team Providers Care Back Winder Name Role Phone Unavailable Primary Care Provider Unavailabl e Source Comments [email or web address],non-owned Affiliates and Associated Physician Practices is amultiple site organization consisting of ambulatory clinics and hospital sitesin [place], [place], [place] and [place]. This disclosure is being madepursuant to the Care Everywhere program and may not contain all information available regarding this patient. Last updated 17.[email or web address] Social History Tobacco Use Types Packs/Day Years Used Date Smoking Tobacco: Never Assessed Sex and Gender Information Value Date Recorded Sex Assigned at Not on file Gender Identity Not on file Sexual Orientation Not on file Plan of Treatment Health Maintenance Due Date Last Done Comments BONE DENSITY TESTING 1960 COLOGUARD (AGES 45-75) - COLON CA SCREENING [address] COLONOGRAPHY - COLON CA SCREENING 1959 FIT - COLON CA SCREENING 1959 FLEX SIG - COLON CA SCREENING 1959 LIPID TESTING 1959 PAP SMEAR 1959 HIV SCREENING 1974 HEPATITIS C SCREENING 01/20/1977 DTAP/TDAP/TD VACCINES (1 - Tdap) 1978 PNEUMOCOCCAL VACCINE 50+ (1 of 1 - PCV) 2009 ZOSTER VACCINE (1 of 2) 2009 HEPATITIS B VACCINE (1 of 3 - Risk 3-dose series) 2019 MAMMOGRAM 05/02/2023 05/01/2021, 04/22, 05/01/2021, Additional history exists COVID-19 VACCINE ( season) 2023 01/23/2021, 07/20/2020, 06/22/2020 INFLUENZA VACCINE (#1) 2023 11/18/2021, 2020 DEPRESSION SCREENING 02/23/2024 COLONOSCOPY - COLON CA SCREENING 05/22/2030 05/22/2020 Colorectal Cancer Screening 05/22/2030 Respiratory Syncytial Virus (RSV) Vaccine Pt: or over 60 yrs (1 - 1-dose 75+ series) 2034 HIB VACCINE Aged Out No longer eligi ble based on patient's age to complete this topic HPV VACCINE Aged Out No longer eligi ble based on patient's age to complete this topic MENINGOCOCCAL (Group B) VACCINE Aged Out No longer eligible based on patient's age to complete this topic MENINGOCOCCAL VACCINE Aged Out No olivia matilda eligible based on patient's age to complete this topic
--- OUTSIDE RECORDS SUMMARY | 2024-04-15 14:15 | XMS_ITS | Encounter Summary ---
Author Organization [facility] Address [address] [place] [address] Phone Care Team Providers Care Roofing Superintendent Name Role Phone Miguel Worrell MD Primary Care Provider [phone] Prosper Browne MD Unavailable [phone] Sarath Gonsalez MD Unavailable [facility] David Eller MD Primary Care Provider [phone] Ally Caraballo MD Unavailable Jojo Skinner MD Unavailable [phone] Santiago Dasilva MD Unavailable [phone] Yusef Carias MD Unavailable + [phone] Viraj Luna MD Unavailable [phone] Timo Mckeon MD Primary Care Provider [phone] Karen Rodriguez APRN, SPEECH AND LANGUAGE ASSISTANT Unavailable + [phone] Deborah Clark RN Unavailable UnavailDk Mendez APRN, TUNNEL ELASTIC OPERATOR ZIGZAG Unavailable [phone] David Patton MD Primary Care Provider [phone] Timo Mckeon MD Primary Care Provider [phone] Reason for Visit * Reason Comments Medication Refill Encounter Details Date Type Department Care Team (Late st Contact Info) Description 11/08/2021 Refill [facility] Family Medicine - [place] [address] [place] [phone] APRN, SPEECH AND LANGUAGE ASSISTANT #[address] [place] [address] [address] Medication Refill Social History Tobacco Use Types [...] Encounter - Nakita Christine RN - 11/10/2021 10:50 AM CDT Medication failed the protocol, provider to [...] Agonists (Oral and Nasal) Protocol Failed - 11/08/2021 9:49 AM Failed - This refill cannot be delegated; check utilization no more than 9 doses per month Passed - Visit with relevant provider in past 24 months or upcoming 90 days Recent Visits Date Type Provider Dept 10/20/21 Office Visit Jerri Mandie, [facility] [place] 10/07/[address] APRN, МАРИЯ [facility] [place] 07/15/21 Office Visit Miguel [facility]rell MD [facility] [place] 07/08/[address] APRN, МАРИЯ [facility] [place] 05/27/[address] APRN, МАРИЯ [facility] [place] 03/18/21 Office Visit Miguel Worrell MD [facility] 03/10/21 Office Visit Miguel Worrell MD [facility] [place] Showing recent visits within past 730 days and meeting all other requirements Future Appointments Date Type Provider Dept 11/18/21 Appointment Miguel Worrell MD [facility] [place] Showing future appointments within next 90 days and meeting all other requirements Passed - No documented Systolic BP > 200 within past 3 months Passed - Number of active Serotonergic medications less than 3 documented in this encounter Plan of Treatment Upcoming Encounters Date Type Department Care Team (Late st Contact Info) Description 04/17/2024 9:00 AM MACHINIST WOOD OCAC [facility] [address] [place] [address] [place] 07/04/2024 10:30 AM CDT [facility] - [place] [address] [place] [address] Karen Rodriguez APRN, SPEECH AND LANGUAGE ASSISTANT #2 [facility], [address] [place] [address] documented as of this encounter Visit Diagnoses Not on filedocumented in this encounter Additional Health Concerns Infection Onset Date Last Indicated Resolved Time COVID - 19 12/11/2021 12/11/2021 12/21/2021 12:1 6 AM CDT COVID - 19 11/17/2023 11/17/2023 11/17/2023 7:31 PM CDT COVID - 19 12/18/2023 12/18/2023 12/18/2023 1:39 PM CDT COVID - 19 Confirmed 12/18/2023 12/18/2023 024 12:17 AM MACHINIST WOOD documented as of this encounter Care Teams Roofing Superintendent Relationship Specialty Start Date End Date Miguel Worrell MD PCP - General Family Medicine 03/03/21 08/04/22 David Patton MD [address] [place] [address] PCP - General Internal Medicine 08/05/22 11/29/22 Timo Mckeon MD [address] [place] [address] PCP - General Family Medicine 11/30/22 11/25/23 David Patton MD [address] [place] [address] PCP - General Internal Medicine 11/26/23 11/29/23 Timo Mckeon MD [address] [place] [address] PCP - General Family Medicine 12/12/23 Prosper Browne MD #[address] [address] Consulting Physician General Surgery 03/24/21 Sarath Gonsalez MD #2 [facility] [address] [place] [address] Mining Professionals Cardiovascular Disease - Cardiology 08/11/21 01/30/24 Ally Caraballo MD [address] [place] [address] Consulting Physician Sleep Medicine 08/05/22 [place] [address] [place] [address] Consulting Physician Otolaryngology 08/05/22 Santiago Dasilva MD [address] [place] [address] [address] [place] [address] Consulting Physician Pulmonary Disease 08/05/22 Yusef Carias MD [address] [place] [address] Consulting Physician Pain Medicine-Pain Management 09/22/22 Viraj Luna MD [address] [place] [address] [facility] [address] [place] [address] Consulting Physician Gastroenterology 10/08/22 Karen Rodriguez APRN, SPEECH AND LANGUAGE ASSISTANT #2 [facility], [address] [place] [address] Nurse Practitioner Advanced Practice Nurse 04/20/23 Deborah Clark RN [place] Nurse Navigator 11/24/23 11/26/23 Dk Friedman APRN, TUNNEL ELASTIC OPERATOR ZIGZAG [address] [place] [address] [facility] ([facility]) CERAMIC DESIGNER Advanced Practice Nurse 11/26/23 11/30/23 documented as of this encounter
[2024-04-15 14:18] VITALS: BP 119/72; PULSE 86; RESP 20; TEMP 36.6; O2SAT 98
--- NOTE | 2024-04-15 15:33 | ED_ITS ---
HPI - General Adult General Chief complaint: Upper Respiratory Infection Stated complaint: cough, weak, dizzy Source: patient Mode of arrival: ambulatory Limitations: no limitations History of Present Illness HPI narrative: Patient presents for evaluation of sick symptoms for last week. Symptoms include fever, chills, fatigue, cough, SOB and sore throat. No nausea, vomiting or diarrhea. She is not taking any medication to assist with her symptoms. She has emphysema. She quit smoking about six months ago. She is not aware of any recent specific sick contacts. She recently completed levaquin for an ear in [facility]. Related Data Home Medications ?Medication ?Instructions ?Recorded ?Confirmed ?Last Taken ?Type diltiazem HCl 120 mg mg PO 12/27/23 Unknown History capsule,extended release 24 hr rivaroxaban .ROUTE 04/15/24 Unknown History Allergies Allergy/AdvReac Type Severity Reaction Status Date / Time ketorolac Allergy Unknown Rash Verified 04/15/24 14:25 meperidine Allergy Unknown Rash Verified 04/15/24 14:25 Penicillins Allergy Unknown welts, Verified 04/15/24 14:25 closes throat Sulfa (Sulfonamide Allergy Unknown rash,swells Verified 04/15/24 14:25 Antibiotics) throat citalopram (From Celexa) Allergy Confusion Verified 04/15/24 14:25 erythromycin base Allergy Heartburn Verified 04/15/24 14:25 latex Allergy Rash Verified 04/15/24 14:25 morphine Allergy Nausea Verified 04/15/24 14:25 pregabalin (From Lyrica) Allergy Abdominal Verified 04/15/24 14:25 Pain gabapentin AdvReac Difficulty Verified 04/15/24 14:25 Swallowing metformin AdvReac Fatigued Uncoded 04/15/24 14:25 Review of Systems Review of Systems: CONSTITUTIONAL: Reports fever, chills, and fatigue. EYES: Denies visual changes, redness, or discharge. ENT: reports sore throat. Denies rhinorrhea, congestion, or otalgia. CARDIOVASCULAR: Denies chest pain, palpitations, or edema. RESPIRATORY: Reports cough and dyspnea. GASTROINTESTINAL: Denies abdominal pain, nausea, vomiting, or diarrhea. GENITOURINARY: Denies dysuria or hematuria. SKIN: Denies rash or itching. MUSCULOSKELETAL: Denies back pain, joint pain, or myalgia. NEUROLOGIC: Denies headache, numbness, dizziness, or weakness. PSYCHIATRIC: Denies anxiety or depression. [facility] Past Medical History Medical History Ulcer Seizure Osteoporosis IBS (irritable bowel syndrome) HTN (hypertension) Heart attack Migraine Head ache GERD (gastroesophageal reflux disease) COPD (chronic obstructive pulmonary disease) CHF (congestive heart failure) Arthritis Anxiety Asthma Allergies Surgical History Surgical History Hx of cholecystectomy Hx of appendectomy H/O: hysterectomy Family History Family History Father Alcohol abuse Cancer Mother Alcohol abuse Heart disease Sibling Alcohol abuse Hypertension Depression Anxiety Grandparent Alcohol abuse Cerebrovascular accident Social History Social History (Updated 04/15/24 @ 15:37 by CHRISTINE Torres, ) Smoking packs per day: 0.5 Smoking cigarettes per day: 10.0 Years smoked: 50 Smoking pack-years: 25.00 Smoking status: Former smoker Tobacco type: cigarettes and e-cigarettes/vaping Second hand tobacco smoke exposure: Yes Additional smoking assessment comments: started smoking at 9 years old Substance use type: does not use Do You Feel Safe in your Home?: Yes Lack of Transportation: No Lack of Food: Never True Current Housing: I Have Housing Concerned About Future Housing: No Difficulty Paying Gas/Electric Bills: YES Difficulty Paying for Meds: No Currently Unemployed: No Education: High School Diploma/GED Difficulty w/ Childcare or Family Care: YES Living arrangements: with family Spiritual care concerns: No Exam Narrative: GENERAL: Well-appearing, well-nourished, and in no acute distress. HEAD: Normocephalic, atraumatic. EYES: PERRLA and EOMI. ENT: Nares clear, no rhinorrhea or epistaxis. Mucous membranes moist. Oropharynx without tonsillar hypertrophy exudate or other lesions. There is a tympanostomy tube in place on the right. Left TM is erythematous and there appears to be a perforation present NECK: Supple. No adenopathy or masses. No carotid bruits or JVD CHEST: Rales present bilaterally. Cough present on exam. HEART: Regular rate and rhythm. No murmur heard. Normal peripheral pulses. ABDOMEN: Soft, nontender, nondistended, normal active bowel sounds. EXTREMITIES: Normal range of motion. No edema. SKIN: Warm, dry, no rash. NEURO: No focal deficits. Alert and oriented x3. PSYCH: Normal mood and affect. Course Course Emergency Course: This is a 64 year old female who presented for evaluation of sick symptoms. COVID, influenza, strep were negative. Chest x-ray showed atelectasis. Exam is consistent with viral URI. Discharge with prednisone and Tessalon. She ready has albuterol. Increase hydration. [id number] agents for symptom management. Follow up with primary provider. Go to the ER for worsening symptoms. Patient in agreement with plan of care Level of Care: Express Care Visit Vital Signs Vital signs: Vital Signs Temperature 36.6 C 04/15/24 14:18 Pulse Rate 86 04/15/24 14:18 Respiratory Rate 20 04/15/24 14:18 Blood Pressure 119/72 04/15/24 14:18 Pulse Oximetry 98 04/15/24 14:18 Oxygen Delivery Room Air 04/15/24 14:18 Temperature 36.6 C 04/15/24 14:18 Pulse Rate 86 04/15/24 14:18 Respiratory Rate 20 04/15/24 14:18 Blood Pressure 119/72 04/15/24 14:18 Pulse Oximetry 98 04/15/24 14:18 Oxygen Delivery Room Air 04/15/24 14:18 Medical Decision Making Vital Signs Vital Signs: Vital Signs Temperature 36.6 C 04/15/24 14:18 Pulse Rate 86 04/15/24 14:18 Respiratory Rate 20 04/15/24 14:18 Blood Pressure 119/72 04/15/24 14:18 Pulse Oximetry 98 04/15/24 14:18 Oxygen Delivery Room Air 04/15/24 14:18 Temperature 36.6 C 04/15/24 14:18 Pulse Rate 86 04/15/24 14:18 Respiratory Rate 20 04/15/24 14:18 Blood Pressure 119/72 04/15/24 14:18 Pulse Oximetry 98 04/15/24 14:18 Oxygen Delivery Room Air 04/15/24 14:18 Lab Data Labs: Lab Results 04/15/24 04/15/24 Range/Units 15:52 15:53 POC Influenza A Ag Negative (Negative) POC Influenza B Ag Negative (Negative) POC SARS CoV-2 Ag Negative (Negative) POC Grp A Strep Screen Negative (Negative) Imaging Data Radiologist's impression: Ordering Physician: Darwin Ardon APRN Date of Service: 04/15/24 Procedure(s): XR chest 2V Accession Number(s): [id number] cc: Darwin Ardon APRN; Timo Mckeon EXAMINATION: XR chest 2V DATE: 04/15/2024 15:44 INDICATION: Cough. TECHNIQUE: Frontal and lateral views of the chest were obtained. COMPARISON: Chest 2 views 12/27/2023, chest CT 12/08/2023 FINDINGS: There is mild atelectasis in the lower lung zones. No pleural effusion or pneumothorax. The heart size is normal. There is a chronic burst fracture of T12. IMPRESSION: 1. Mild atelectasis in the lower lung zones. Discharge Plan Discharge Clinical Impression: Viral upper respiratory infection Patient Disposition: Home, Self-Care Condition: Stable Instructions: Antibiotic Form, Viral Syndrome (ED) Patient Language: Sammarinese Prescriptions: New prednisone 50 mg tablet 50 mg PO DAILY Qty: 5 0RF benzonatate 200 mg capsule 200 mg PO TID PRN (Reason: cough) Qty: 30 0RF No Action rivaroxaban [Xarelto] .ROUTE diltiazem HCl 120 mg capsule,extended release 24hr PO pantoprazole [Protonix] 40 mg tablet,delayed release (DR/EC) 40 mg PO QHS Qty: 30 3RF furosemide [Lasix] 40 mg tablet 40 mg PO .prn Qty: 90 0RF albuterol sulfate 2.5 mg /3 mL (0.083 %) solution for nebulization 2.5 mg inhalation Q4-6H PRN (Reason: shortness of breath or wheezing) Qty: 180 0RF aripiprazole [Abilify] 5 mg tablet 5 mg PO DAILY Qty: 90 0RF topiramate 25 mg tablet 25 mg PO DAILY Qty: 90 0RF (DME) blood-glucose meter Misc See Rx Instructions .Route Qty: 1 0RF Rx Instructions: As directed (DME) Blood Glucose Test Strip See Rx Instructions .Route Qty: 50 3RF Rx Instructions: As directed cyclobenzaprine 10 mg tablet See Rx Instructions .ROUTE .COMPLEX Qty: 90 0RF Dose Instruction: TAKE ONE (1) TABLET ORALLY THREE TIMES a DAY NEEDED FOR MUSCLE SPASM Rx Instructions: TAKE ONE (1) TABLET ORALLY THREE TIMES a DAY NEEDED FOR MUSCLE SPASM clonazepam 0.5 mg tablet 0.5 mg PO DAILY Qty: 30 0RF hydrocodone-acetaminophen 7.5-325 mg tablet 1 tablet PO Q8H PRN (Reason: pain) Qty: 90 0RF Follow-up/Referrals: Timo Mckeon MD [Primary Care Provider] - Time of Disposition: 16:11
[2024-04-15 15:54] LABS: EDCOVIDSCREEN Negative (Negative)
[2024-04-15 15:54] LABS: EDINFLUASCREEN Negative (Negative); EDINFLUBSCREEN Negative (Negative)
[2024-04-15 15:55] LABS: EDSTREPNEGPOS1 Negative (Negative)
== END 2024-04-15 16:16 | disposition home or self-care (01) ==
PROVIDERS: Emergency Provider Nurse Practitioner; PCP Family Medicine
DX: J06.9 Acute upper respiratory infection, unspecified (principal); Z20.822 Contact with and (suspected) exposure to COVID-19; F17.210 Nicotine dependence, cigarettes, uncomplicated; F17.290 Nicotine dependence, other tobacco product, uncomplicated; I11.0 Hypertensive heart disease with heart failure; I50.9 Heart failure, unspecified; J44.9 Chronic obstructive pulmonary disease, unspecified; M19.90 Unspecified osteoarthritis, unspecified site; K21.9 Gastro-esophageal reflux disease without esophagitis; M85.80 Other specified disorders of bone density and structure, unspecified site
CPT/HCPCS: 71046; 87081; 87426; 87804; 87880; 99213; G0463